=== PATIENT | male | born 1960 | race Caucasian/White ===

== ENCOUNTER 2017-05-05 08:53 | Inpatient (IN) | payer BC ==
[2017-05-05] MEDS ORDERED: Albuterol/Ipratropium 3.0-0.5 MG/3 ML Neb Soln NEB ONE (09:19)
[2017-05-05] MEDS ORDERED: predniSONE 20 MG Tab PO STA (09:19)
--- NOTE | 2017-05-05 09:22 | EDM.PDOC ---
ED HPI GENERAL MEDICAL PROBLEM - General Chief Complaint: Respiratory Problem Stated Complaint: SOB Time Seen by Provider: 05/05/17 08:58 Source of Information: Reports: Patient, Old Records, RN Notes Reviewed History Limitations: Reports: No Limitations - History of Present Illness INITIAL COMMENTS - FREE TEXT/NARRATIVE: The patient states that he has a chronic dry cough, but that it became productive of clear sputum a few days ago. He reports shortness of breath at rest for the past 3-4 days. No recent fever, chest pain, or palpitations. The patient reports similar symptoms about a year ago, when he was seen in the ED ( medical records indicate 02/19/2016). The patient dates that he was seen at a walk-in clinic approximately February of this year. He states his chest x-ray was done, which was negative, nevertheless , he was prescribed an antibiotic. He then followed up with his PCP, Dr. Martines , approximately March. Again x-rays and blood work were done, all of which were negative, according to the patient. He was prescribed an albuterol MDI, antibiotics, and an approximately ten-day course of oral prednisone, which he states he took. The patient states that he has been using his albuterol MDI 1 puff up to TID as needed for dyspnea. The patient has suspected COPD, however, has never undergone formal pulmonary function tests. He is a committed smoker. - Related Data Allergies Allergy/AdvReac Type Severity Reaction Status Date / Time No Known Allergies Allergy Verified 05/05/17 09:02 Home Meds: Home Meds Albuterol [IJD: Ventolin HFA] 2 puff INH Q3H PRN #18 gm 02/19/16 [Rx] Past Medical History Respiratory History: Reports: COPD (suspected, never tested) Musculoskeletal History: Reports: Arthritis, Back Pain, Chronic - Past Surgical History HEENT Surgical History: Reports: Oral Surgery ([place] teeth extraction) GI Surgical History: Reports: Hernia, Inguinal (bilateral) Social & Family History - Family History Family Medical History: Noncontributory - Tobacco Use Smoking Status *Q: Current Every Day Smoker Years of Tobacco use: 40 Packs/Tins Daily: 1 Packs/Tins Daily Comment: Down from 2 ppd - Alcohol Use Alcohol Use History: Yes Total Drinks Per Week Comment: Occasionally drinks to excess Alcohol Use Frequency: Daily - Recreational Drug Use Recreational Drug Use: No - Living Situation & Occupation Living situation: Reports: , Alone 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 Denies: Fever HEENT: Reports: No Symptoms Respiratory: Reports: Shortness of Breath (as per the HPI), Wheezing, Cough (as per the HPI) Cardiovascular: Reports: No Symptoms Endocrine: Reports: No Symptoms GI/Abdominal: Reports: No Symptoms : Reports: No Symptoms Musculoskeletal: Reports: No Symptoms Skin: Reports: No Symptoms Neurological: Reports: No Symptoms Psychiatric: Reports: No Symptoms Hematologic/Lymphatic: Reports: No Symptoms Immunologic: Reports: No Symptoms ED EXAM, GENERAL - Physical Exam Exam: See Below Exam Limited By: No Limitations General Appearance: Alert, WD/WN, Mild Distress (Appears slightly dyspneic, but conversation is not limited) Eye Exam: Bilateral Eye: Normal Inspection Ears: Normal External Exam, Hearing Grossly Normal Nose: Normal Inspection, No Blood Throat/Mouth: Normal Inspection, Normal Lips, Normal Voice, No Airway Compromise Head: Atraumatic, Normocephalic Neck: Normal Inspection, Full Range of Motion Respiratory/Chest: No Respiratory Distress, No Accessory Muscle Use, Decreased Breath Sounds (throughout lung [place]), Wheezing (faint), Prolonged Expiration ( minimal). No: Crackles, Rhonchi Cardiovascular: Normal Peripheral Pulses, Regular Rate, Rhythm, No Gallop, No JVD, No Murmur, No Rub Peripheral Pulses: 4+: Radial (L), Radial (R) GI/Abdominal: Normal Bowel Sounds, Soft, Non-Tender, No Organomegaly, No Distention, No Abnormal Bruit, No Mass (Male) Exam: Deferred Rectal (Males) Exam: Deferred Back Exam: Normal Inspection, Full Range of Motion, NT Extremities: Normal Inspection, Normal Range of Motion, No Pedal Edema, Normal Capillary Refill Neurological: Alert, Oriented, Normal Cognition, No Motor/Sensory Deficits Psychiatric: Normal Affect Skin Exam: Warm, Dry, Intact, Normal Color, No Rash Lymphatic: No Adenopathy EKG INTERPRETATION EKG Date: 05/05/17 Time: 09:03 Rhythm: NSR Rate (Beats/Min): 85 [place]: Normal P-Wave: Present QRS: Normal ST-T: Normal QT: Prolonged (QTc 503 ms) Comparison: NA - No Prior EKG Course - Vital Signs Last Recorded V/S: Last Vital Signs Temp 36.7 C 05/05/17 08:58 Pulse 92 05/05/17 08:58 Resp 21 H 05/05/17 08:58 BP 145/84 H 05/05/17 08:58 Pulse Ox 91 L 05/05/17 11:01 - Orders/Labs/Meds Orders: Active Orders 24 hr Category Date Time Status EKG Documentation Completion [RC] STAT Care 05/05/17 09:05 Active RT Aerosol Therapy [RC] ASDIRECTED Care 05/05/17 09:19 Active RT Aerosol Therapy [RC] ASDIRECTED Care 05/05/17 11:01 Active BLOOD GAS ARTERIAL [BG] Stat Lab 05/05/17 09:15 Results CULTURE BLOOD [BC] Stat Lab 05/05/17 09:25 Received CULTURE BLOOD [BC] Stat Lab 05/05/17 09:40 Received Blood Culture x2 Reflex Set [OM.PC] Stat Oth 05/05/17 09:15 Ordered Labs: Laboratory Tests 05/05/17 05/05/17 05/05/17 Range/Units 09:15 09:25 09:25 WBC 5.57 (4.23-9.07) K/mm3 RBC 5.50 (4.63-6.08) M/mm3 Hgb 18.1 H (13.7-17.5) gm/L Hct 52.0 H (40.1-51.0) % MCV 94.5 H (79.0-92.2) fl MCH 32.9 H (25.7-32.2) pg MCHC 34.8 (32.2-35.5) g/dl RDW Std Deviation 45.5 H (35.1-43.9) fL Plt Count 125 L (163-337) K/mm3 MPV 11.9 (9.4-12.3) fl Neutrophils % (Manual) 58 (40-60) % Band Neutrophils % 0 (0-10) % Lymphocytes % (Manual) 19 L (20-40) % Atypical Lymphs % 10 % Monocytes % (Manual) 4 (2-10) % Eosinophils % (Manual) 9 H (0.8-7.0) % Basophils % (Manual) 0 L (0.2-1.2) Platelet Estimate Adequate Plt Morphology Comment See note Polychromasia 1+ slight Anisocytosis 1+ slight RBC Morph Comment Abnormal PT 11.4 (8.0-13.0) SECONDS INR 1.04 APTT 26 (22-36) SECONDS D-Dimer, Quantitative 0.19 (0.19-0.59) mg/L Puncture Site Rt radial ABG pH 7.39 (7.35-7.45) ABG pCO2 42.2 (35.0-45.0) mmHg ABG pO2 53.0 L (80.0-100.0) mmHg ABG HCO3 25.2 (22.0-26.0) meq/L ABG O2 Saturation 89.0 L (96.0-97.0) % ABG Base Excess 0.6 (-2-2.0) Karan Test Positive O2 Delivery Device Room air Sodium (136-145) mEq/L Potassium (3.5-5.1) mEq/L Chloride (98-107) mEq/L Carbon Dioxide (21-32) mEq/L Anion Gap (5-15) BUN (7-18) mg/dL Creatinine (0.7-1.3) mg/dL Est Cr Clr Drug Dosing Estimated GFR (MDRD) (>60) mL/min BUN/Creatinine Ratio (14-18) Glucose (74-106) mg/dL Lactic Acid (0.4-2.0) mmol/L Calcium (8.5-10.1) mg/dL Total Bilirubin (0.2-1.0) mg/dL AST (15-37) U/L ALT (16-63) U/L Alkaline Phosphatase (46-116) U/L Troponin I (0.00-0.056) ng/mL NT-Pro-B Natriuret Pep (0-125) pg/mL Total Protein (6.4-8.2) g/dl Albumin (3.4-5.0) g/dl Globulin gm/dL Albumin/Globulin Ratio (1-2) 05/05/17 05/05/17 Range/Units 09:25 09:25 WBC (4.23-9.07) K/mm3 RBC (4.63-6.08) M/mm3 Hgb (13.7-17.5) gm/L Hct (40.1-51.0) % MCV (79.0-92.2) fl MCH (25.7-32.2) pg MCHC (32.2-35.5) g/dl RDW Std Deviation (35.1-43.9) fL Plt Count (163-337) K/mm3 MPV (9.4-12.3) fl Neutrophils % (Manual) (40-60) % Band Neutrophils % (0-10) % Lymphocytes % (Manual) (20-40) % Atypical Lymphs % % Monocytes % (Manual) (2-10) % Eosinophils % (Manual) (0.8-7.0) % Basophils % (Manual) (0.2-1.2) Platelet Estimate Plt Morphology Comment Polychromasia Anisocytosis RBC Morph Comment PT (8.0-13.0) SECONDS INR APTT (22-36) SECONDS D-Dimer, Quantitative (0.19-0.59) mg/L Puncture Site ABG pH (7.35-7.45) ABG pCO2 (35.0-45.0) mmHg ABG pO2 (80.0-100.0) mmHg ABG HCO3 (22.0-26.0) meq/L ABG O2 Saturation (96.0-97.0) % ABG Base Excess (-2-2.0) Karan Test O2 Delivery Device Sodium 143 (136-145) mEq/L Potassium 4.0 (3.5-5.1) mEq/L Chloride 107 (98-107) mEq/L Carbon Dioxide 27 (21-32) mEq/L Anion Gap 13.0 (5-15) BUN 14 (7-18) mg/dL Creatinine 0.9 (0.7-1.3) mg/dL Est Cr Clr Drug Dosing TNP Estimated GFR (MDRD) > 60 (>60) mL/min BUN/Creatinine Ratio 15.6 (14-18) Glucose 98 (74-106) mg/dL Lactic Acid 1.0 (0.4-2.0) mmol/L Calcium 9.1 (8.5-10.1) mg/dL Total Bilirubin 1.6 H (0.2-1.0) mg/dL AST 22 (15-37) U/L ALT 26 (16-63) U/L Alkaline Phosphatase 107 (46-116) U/L Troponin I < 0.017 (0.00-0.056) ng/mL NT-Pro-B Natriuret Pep 64 (0-125) pg/mL Total Protein 7.4 (6.4-8.2) g/dl Albumin 4.0 (3.4-5.0) g/dl Globulin 3.4 gm/dL Albumin/Globulin Ratio 1.2 (1-2) Meds: Medications Discontinued Medications Generic Name Dose Route Start Last Admin Trade Name Ryan PRN Reason Stop Dose Admin Albuterol 2.5 mg 05/05/17 11:01 05/05/17 11:05 Proventil Neb Soln NEB 05/05/17 11:02 2.5 mg ONETIME ONE Administration Albuterol/Ipratropium 3 ml 05/05/17 09:19 05/05/17 09:36 Duoneb 3.0-0.5 Mg/3 Ml NEB 05/05/17 09:20 3 ml ONETIME ONE Administration Prednisone 60 mg 05/05/17 09:19 05/05/17 09:30 Prednisone PO 05/05/17 09:20 60 mg ONETIME STA Administration - Re-Assessments/Exams Free Text/Narrative Re-Assessment/Exam: 05/05/17 09:25 Two-view chest radiograph appears to be grossly normal. Cardiac silhouette is within normal limits. No pulmonary vascular congestion. No pleural effusions. No focal infiltrate. No pneumothorax. Hyperinflation and bilateral diaphragmatic flattening, consistent with COPD, noted. Formal read per the Radiologist pending. 05/05/17 11:02 The patient was reexamined. He states that he feels much better following a DuoNeb and oral prednisone, however, his oxygen saturation is consistently 86-87 % on room air. On auscultation, there is no significant improvement, with overall good air movement, but significantly decreased breath sounds and slight expiratory wheezing. I have ordered an additional albuterol neb treatment. He will be started on supplemental oxygen to titrate his SpO2 to approximately 90%. 05/05/17 11:53 Test results discussed with the patient. Today's workup is grossly unremarkable. While the patient does not have a formal diagnosis of COPD, he likely is suffering from a COPD exacerbation. His symptoms have improved somewhat with a DuoNeb, albuterol neb, and oral prednisone, however, he still requires supplemental oxygen to maintain a SpO2 of 88%. I'm recommending that he be placed into observation, and if his oxygen saturation does not improve, that home oxygen be arranged. The patient is agreeable. Incidentally noted is an elevated total bilirubin of 1.6 without elevation of his other LFTs. The patient may have Gilbert syndrome. 05/05/17 12:[address] Sauceda at 11:57. He agrees to place the patient into observation. Departure - Departure Time of Disposition: 12:02 Disposition: Refer to Observation Condition: Fair Clinical Impression: COPD exacerbation, Hypoxemia - Discharge Information Referrals: Thompson Martines Jr, MD [Primary Care Provider] - - My Orders Last 24 Hours: My Active Orders 05/05/17 09:05 EKG Documentation Completion [RC] STAT 05/05/17 09:15 BLOOD GAS ARTERIAL [BG] Stat Blood Culture x2 Reflex Set [OM.PC] Stat 05/05/17 09:19 RT Aerosol Therapy [RC] ASDIRECTED 05/05/17 09:25 CULTURE BLOOD [BC] Stat 05/05/17 09:40 CULTURE BLOOD [BC] Stat 05/05/17 11:01 RT Aerosol Therapy [RC] ASDIRECTED - Assessment/Plan Last 24 Hours: My Active Orders 05/05/17 09:05 EKG Documentation Completion [RC] STAT 05/05/17 09:15 BLOOD GAS ARTERIAL [BG] Stat Blood Culture x2 Reflex Set [OM.PC] Stat 05/05/17 09:19 RT Aerosol Therapy [RC] ASDIRECTED 05/05/17 09:25 CULTURE BLOOD [BC] Stat 05/05/17 09:40 CULTURE BLOOD [BC] Stat 05/05/17 11:01 RT Aerosol Therapy [RC] ASDIRECTED
[2017-05-05] MEDS ORDERED: Albuterol 0.083% 2.5 MG/3 ML Neb Soln NEB ONE (11:01)
--- NOTE | 2017-05-05 11:40 | CR ---
Chest: Two views of the chest were obtained. Comparison: Previous chest x-ray of 02/21/16. Heart size and mediastinum are within normal limits. Lungs are hyperinflated compatible with emphysematous change. Lungs are clear without acute infiltrates. Minimal scoliosis is noted. Slight degenerative change is noted within the spine. Impression: 1. Emphysematous change. Nothing acute is appreciated. No significant change is seen from prior chest x-ray. Diagnostic code #2
[2017-05-05] MEDS ORDERED: Magnesium Hydroxide 400 MG/5 ML Susp 30 ML Cup PO PRN (13:28)
[2017-05-05] MEDS ORDERED: Temazepam 7.5 MG Cap PO PRN (13:28)
[2017-05-05] MEDS ORDERED: Acetaminophen 325 MG Tab PO PRN (13:28)
[2017-05-05] MEDS ORDERED: Ondansetron 4 MG Tab.DIS PO PRN (13:28)
[2017-05-05] MEDS ORDERED: Docusate Sodium 100 MG Cap PO PRN (13:28)
[2017-05-05] MEDS ORDERED: Albuterol/Ipratropium 3.0-0.5 MG/3 ML Neb Soln NEB PRN (13:28)
[2017-05-05] MEDS ORDERED: Ondansetron 4 MG/2 ML SDV IV PRN (13:28)
[2017-05-05] MEDS ORDERED: Morphine 2 MG/ML Syringe IVPUSH PRN (14:20)
--- NOTE | 2017-05-05 14:41 | PCM.HP ---
<Bill Andersen - Last Filed: 05/05/17 15:55> H&P History of Present Illness - General Date of Service: 05/05/17 Admit Problem/Dx: Admission Diagnosis/Problem Admission Diagnosis/Problem Reactive Airway Disease with Wheezing Source of Information: Patient, Provider History Limitations: Reports: No Limitations - History of Present Illness Initial Comments - Free Text/Narative: Rob Garcia is a 56 y.o. male pt. who came to the ED reporting SOB over 3-4 days and a chronic dry cough that became productive of clear sputum a few days ago. He has had no fever, chest pain, or other URI symptoms. He was seen in the ED on 02/18/17 for similar symptoms which resolved after treatment in the ED and was subsequently released home. He reports being seen in the [place] walk-in clinic in February and a chest x-ray was taken but was unremarkable. He was prescribed an antibiotic and followed up with Dr. Martines, his PCP in March. The patient reports a CXR and blood work was done and all were negative. At that time he was prescribed an albuterol MDI (1 puff TID), antibiotic, and 10-day course of oral prednisone. He finished this treatment. Upon arrival to ED today he is mildly dyspneic but is able to communicate freely without much difficulty. He has no complaints of chest pain or any other symptoms. EKG shows NSR with prolonged QT. Labs drawn. WBC 5.57, Hgb 18.1, Hct 52.0, Plt 125, PT 11.4, INR 1.04, D-Dimer 0.19, ABG pH 7.39, ABG pCO2 42.2, ABG pO2 53, ABG HCO3 25.2, ABG O2 saturation 89, ABG base excess 0.6. Anion gap 13.0 , creatinine 0.9, lactic acid 1.0, Bilirubin 1.6, NT-Pro BNP 7.4. Patient was given albuterol and duo-neb via nebulizer as well as 60 mg PO of prednisone. CXR is grossly normal. Per Dr. Tejeda (radiologist) "Emphysematous change. Nothing acute is appreciated. No significant change seen from prior chest x-ray. " He responds well to treatment in ED however his oxygen saturation remains 86-87 % on room air. Placed on O2 via NC at 2L and saturation increases to low 90's. He is subsequently admitted to hospitalist service under Dr. Sauceda for low oxygen saturation. This patient has never had a formal COPD diagnoses and reports never having been given a PFT. His CXR is suggestive of of this, as noted above. The patient is a heavy smoker, having used tobacco for 40+ years. He reports using 1 pack per day, down from 2 packs per day. He denies any other significant medical history and denies any medication use, aside from an occasional NSAID. Onset of Symptoms: Reports: Gradual Duration of Symptoms: Reports: Getting Worse Quality: Reports: Same as Previous Episode Severity: Moderate Improves with: Reports: Medication, Rest Worsens with: Reports: Other (activity ) Associated Symptoms: Reports: cough w sputum (clear) - Related Data Allergies/Adverse Reactions: Allergies Allergy/AdvReac Type Severity Reaction Status Date / Time No Known Allergies Allergy Verified 05/05/17 09:02 Home Medications: Home Meds Albuterol [IJD: Ventolin HFA] 2 puff INH Q3H PRN #18 gm 02/19/16 [Rx] Past Medical History - Past Health History Medical/Surgical History: Denies Medical/Surgical History Cardiovascular History: Reports: SOB on Exertion Respiratory History: Reports: COPD, SOB Musculoskeletal History: Reports: Arthritis, Back Pain, Chronic - Past Surgical History HEENT Surgical History: Reports: Oral Surgery, Other (See Below) Other HEENT Surgeries/Procedures: 2007 Cardiovascular Surgical History: Reports: None Respiratory Surgical History: Reports: None GI Surgical History: Reports: Hernia, Inguinal Social & Family History - Family History Family Medical History: Noncontributory HEENT: Reports: None Cardiac: Reports: Heart Failure, Heart Murmur, Pacemaker, Other (See Below) Other Cardiac Family History: mother/father Neurological: Reports: Parkinson's, Other (See Below) Other Neurological Family History: father Oncologic: Reports: Prostate, Other (See Below) Other Oncologic Family History: father - Tobacco Use Smoking Status *Q: Current Every Day Smoker Years of Tobacco use: 35 Packs/Tins Daily: 1 Used Tobacco, but Quit: No Second Hand Smoke Exposure: Yes - Caffeine Use Caffeine Use: Reports: Coffee, Energy Drinks, Tea - Alcohol Use Days Per Week of Alcohol Use: 7 Number of Drinks Per Day: 2 Total Drinks Per Week: 14 Date of Last Drink: 05/04/17 Time of Last Drink: 20:00 - Recreational Drug Use Recreational Drug Use: No - Living Situation & Occupation Living situation: Reports: , Alone 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 General: Denies: Fever, Chills, Malaise, Weakness, Fatigue, Night Sweats HEENT: Denies: Eye Pain, Headaches, Hearing Changes, Sinus Congestion, Sore Throat, Visual Changes Pulmonary: Reports: Shortness of Breath (Mild at this point ), Wheezing, Cough, Sputum (clear ). Denies: Pleuritic Chest Pain Cardiovascular: Reports: Dyspnea on Exertion. Denies: Chest Pain, Palpitations , Edema, Lightheadedness, Claudication Gastrointestinal: Denies: Abdominal Pain, Constipation, Diarrhea, Decreased Appetite, Distension, Nausea, Vomiting Genitourinary: Denies: Dysuria, Pain, Urgency Musculoskeletal: Denies: Neck Pain, Shoulder Pain, Back Pain, Leg Pain, Muscle Pain, Muscle Stiffness Skin: Denies: Cyanosis, Jaundice, Mottled, Diaphoresis, Bruising, Pruritis, Rash Psychiatric: Reports: No Symptoms Neurological: Denies: Confusion, Dizziness, Headache, Numbness, Tingling, Difficulty Walking, Weakness, Change in Speech, Gait Disturbance Hematologic/Lymphatic: Reports: No Symptoms Immunologic: Reports: No Symptoms Exam - Exam Exam: See Below - Vital Signs Vital Signs: Last Vital Signs Temp 97.5 F 05/05/17 13:29 Pulse 72 05/05/17 13:29 Resp 20 05/05/17 13:20 BP 158/91 H 05/05/17 13:29 Pulse Ox 91 L 05/05/17 13:29 Weight: 81.788 kg - Exam Quality Assessment: Supplemental Oxygen, DVT Prophylaxis General: Alert, Oriented, Cooperative HEENT: Conjunctiva Clear, EACs Clear, EOMI, Hearing Intact, Mucosa Moist & [place] , Nares Patent, Normal Nasal Septum, Posterior Pharynx Clear, Pupils Equal, Pupils Reactive, TMs Clear Neck: Supple, Trachea Midline, Full Range of Motion. No: JVD Lungs: Decreased Breath Sounds, Wheezing (end-expiratory ), Other (minimal prolongued expiration, no accessory muscle use, ). No: Crackles, Rales, Rub Cardiovascular: Regular Rate, Regular Rhythm GI/Abdominal Exam: Normal Bowel Sounds, Soft, Non-Tender, No Distention, No Mass (Male) Exam: Deferred Rectal (Males) Exam: Deferred Back Exam: Normal Inspection, Full Range of Motion. No: CVA Tenderness (L), CVA Tenderness (R), Muscle Spasm Extremities: Normal Inspection, Normal Range of Motion, Non-Tender, No Pedal Edema, Normal Capillary Refill Peripheral Pulses: 2+: Radial (L), Radial (R), 3+: Posterior Tibial (L), Posterior Tibial (R), Dorsalis Pedis (L), Dorsalis Pedis (R) Skin: Warm, Dry, Intact Neuro Extensive - Mental Status: Alert, Oriented x3, Normal Mood/Affect, Normal Cognition, Memory Intact Psychiatric: Alert, Normal Affect, Normal Mood - Patient Data Result Diagrams: 05/05/17 09:25 05/05/17 09:25 *Q Meaningful Use (ADM) - VTE *Q VTE Criteria *Q: - Stroke *Q Stroke Criteria *Q: - AMI *Q AMI Criteria *Q: - Problem List (1) Reactive airway disease with wheezing SNOMED Code(s): 721886634591 ICD Code: J45.909 - UNSPECIFIED ASTHMA, UNCOMPLICATED Status: Acute Priority: High Current Visit: Yes QualifierTitle: Asthma severity: unspecified severity Asthma complication type: with acute exacerbation Qualified Code(s): J45.901 - Unspecified asthma with (acute) exacerbation Problem List Initiated/Reviewed/Updated: Yes Orders Last 24hrs: Active Orders 24 hr Category Date Time Status Ambulate [RC] PER UNIT ROUTINE Care 05/05/17 13:33 Active Antiembolic Devices [RC] PER UNIT ROUTINE Care 05/05/17 13:37 Active Intake and Output [RC] QSHIFT Care 05/05/17 13:31 Active May Shower [RC] ASDIRECTED Care 05/05/17 13:28 Active Oxygen Therapy [RC] PRN Care 05/05/17 13:29 Active Pulse Oximetry [RC] CONTINUOUS Care 05/05/17 13:30 Active RT Aerosol Therapy [RC] ASDIRECTED Care 05/05/17 13:38 Active VTE/DVT Education [RC] PER UNIT ROUTINE Care 05/05/17 13:29 Active VTE/DVT Education [RC] PER UNIT ROUTINE Care 05/05/17 14:09 Active Vaccines to be Administered [RC] PER UNIT ROUTINE Care 05/05/17 13:41 Active Vital Signs [RC] Q4H Care 05/05/17 13:29 Active Vital Signs [RC] Q4H Care 05/05/17 14:09 Active Consult to Case Management [CONS] Routine Cons 05/05/17 13:42 Active Consult to Certified Midwife [CONS] Routine Cons 05/05/17 13:42 Active OT Evaluation and Treatment [CONS] Routine Cons 05/05/17 13:42 Active PT Evaluation and Treatment [CONS] Routine Cons 05/05/17 13:42 Active Respiratory Care Assess and Treatment [CONS] Routine Cons 05/05/17 13:42 Active Regular Diet [DIET] Diet 05/05/17 Dinner Active BASIC METABOLIC PANEL,BMP [CHEM] DAILY Lab 05/06/17 05:00 Ordered BASIC METABOLIC PANEL,BMP [CHEM] DAILY Lab 05/07/17 05:00 Ordered BASIC METABOLIC PANEL,BMP [CHEM] DAILY Lab 05/08/17 05:00 Ordered BASIC METABOLIC PANEL,BMP [CHEM] DAILY Lab 05/09/17 05:00 Ordered CBC WITH AUTO DIFF [HEME] DAILY Lab 05/06/17 05:00 Ordered CBC WITH AUTO DIFF [HEME] DAILY Lab 05/07/17 05:00 Ordered CBC WITH AUTO DIFF [HEME] DAILY Lab 05/08/17 05:00 Ordered CBC WITH AUTO DIFF [HEME] DAILY Lab 05/09/17 05:00 Ordered MAGNESIUM [CHEM] Stat Lab 05/05/17 09:25 Received POTASSIUM,K [CHEM] Routine Lab 05/05/17 09:25 Received Acetaminophen [Tylenol] Med 05/05/17 13:28 Active 650 mg PO Q4H PRN Albuterol/Ipratropium [DuoNeb 3.0-0.5 MG/3 ML] Med 05/05/17 13:28 Active 3 ml NEB Q4H PRN Azithromycin [Zithromax] Med 05/05/17 14:00 Active 500 mg PO DAILY Docusate Sodium [Colace] Med 05/05/17 13:28 Active 100 mg PO BID PRN Magnesium Hydroxide [Milk of Magnesia] Med 05/05/17 13:28 Active 30 ml PO Q12H PRN Magnesium Rep Pharmacy to Dose [Pharmacy to Dose - Med 05/05/17 14:00 Active Magnesium Replacement] 1 dose .XX ASDIRECTED Morphine Med 05/05/17 14:20 Active 0.5 mg IVPUSH Q2H PRN Nicotine [Habitrol] Med 05/05/17 14:00 Active 21 mg TRDERM DAILY Ondansetron [Zofran ODT] Med 05/05/17 13:28 Active 4 mg PO Q4H PRN Ondansetron [Zofran] Med 05/05/17 13:28 Active 4 mg IV Q4H PRN Potassium Rep Pharmacy to Dose [Pharmacy to Dose - Med 05/05/17 14:15 Active Potassium Replacement] 1 dose .XX ASDIRECTED Remove Patch Med 05/06/17 09:00 Active 0 ea TRDERM DAILY Temazepam [Restoril] Med 05/05/17 13:28 Active 7.5 mg PO BEDTIME PRN GM Immunization Reflex [OM.PC] Click To Edit Oth 05/05/17 13:28 Ordered Sequential Compression Device [OM.PC] Per Unit Routine Oth 05/05/17 13:34 Ordered Resuscitation Status Routine Resus Stat 05/05/17 13:28 Ordered Medication Orders Acetaminophen (Tylenol) 650 mg PO Q4H PRN PRN Reason: Pain (Mild 1-3)/fever Albuterol/Ipratropium (Duoneb 3.0-0.5 Mg/3 Ml) 3 ml NEB Q4H PRN PRN Reason: Shortness Of Breath/wheezing Azithromycin (Zithromax) 500 mg PO DAILY [facility] Stop: 05/07/17 09:01 Docusate Sodium (Colace) 100 mg PO BID PRN PRN Reason: Constipation Magnesium Hydroxide (Milk Of Magnesia) 30 ml PO Q12H PRN PRN Reason: Constipation Magnesium Sulfate (Pharmacy To Dose - Magnesium Replacement) 1 dose .XX ASDIRECTED [facility] Miscellaneous Information (Remove Patch) 0 ea TRDERM DAILY [facility] Morphine Sulfate (Morphine) 0.5 mg IVPUSH Q2H PRN PRN Reason: Dyspnea Nicotine (Habitrol) 21 mg TRDERM DAILY [facility] Ondansetron HCl (Zofran) 4 mg IV Q4H PRN PRN Reason: Nausea/Vomiting Ondansetron HCl (Zofran Odt) 4 mg PO Q4H PRN PRN Reason: nausea, able to take PO Potassium Chloride (Pharmacy To Dose - Potassium Replacement) 1 dose .XX ASDIRECTED [facility] Temazepam (Restoril) 7.5 mg PO BEDTIME PRN PRN Reason: Sleep Assessment/Plan Comment:: I/P Acute: Reactive airway disease: - CXR suggestive of emphysematous change - Prior ED visit with similar symptoms (02/19/16) - 40+ year 1-2 ppd smoker - Normal WBC - No fever - Unremarkable EKG - D-dimer/troponin negative - Improvement with Duo-neb/albuterol, will continue with PRN therapy - RT consult - Continue O2 via NC with goal of weaning off O2. - Strongly advised to have outpatient PFT. - Discussed case with Dr. Sauceda, hospitalist. He advised to continue steroid taper with first dose given in ED at 60mg. Continue TID while decreasing to 40mg after 3 doses, 20mg TID, and so on. - Azithromycin abx started - Will monitor magnesium and potassium. Elevated bilirubin - 1.6 - LFTs not elevated - Will have follow-up with PCP for possible monitoring/treatment if necessary. Chronic: Tobacco use disorder - Nicotine patch as ordered - Will provide tobacco cessation materials Plan: OT/PT SW/CM for discharge planning GI/DVT prophylaxis Routine AM labs as ordered Other orders as indicated above <Rajani Sauceda T - Last Filed: 05/05/17 16:45> H&P History of Present Illness - General Admit Problem/Dx: Admission Diagnosis/Problem Admission Diagnosis/Problem COPD, Moderate chronic obstructive pulmonary disease Exam - Vital Signs Vital Signs: Last Vital Signs Temp 36.4 C 05/05/17 13:29 Pulse 72 05/05/17 13:29 Resp 20 05/05/17 13:20 BP 158/91 H 05/05/17 13:29 Pulse Ox 91 L 05/05/17 13:30 - Patient Data Result Diagrams: 05/05/17 09:25 05/05/17 09:25 *Q Meaningful Use (ADM) - VTE *Q VTE Criteria *Q: - Stroke *Q Stroke Criteria *Q: - AMI *Q AMI Criteria *Q: Problem List Initiated/Reviewed/Updated: Yes Orders Last 24hrs: Active Orders 24 hr Category Date Time Status Ambulate [RC] Q8HR Care 05/05/17 13:33 Active Antiembolic Devices [RC] Q12H Care 05/05/17 13:37 Active Intake and Output [RC] QSHIFT Care 05/05/17 13:31 Active May Shower [RC] ASDIRECTED Care 05/05/17 13:28 Active Oxygen Therapy [RC] PRN Care 05/05/17 13:29 Active Pulse Oximetry [RC] CONTINUOUS Care 05/05/17 13:30 Active RT Aerosol Therapy [RC] ASDIRECTED Care 05/05/17 13:38 Active VTE/DVT Education [RC] 1000 Care 05/05/17 14:09 Active VTE/DVT Education [RC] Q12H Care 05/05/17 13:29 Active Vaccines to be Administered [RC] PER UNIT ROUTINE Care 05/05/17 13:41 Active Vital Signs [RC] Q4H Care 05/05/17 13:29 Active Consult to Case Management [CONS] Routine Cons 05/05/17 13:42 Active Consult to Certified Midwife [CONS] Routine Cons 05/05/17 13:42 Active OT Evaluation and Treatment [CONS] Routine Cons 05/05/17 13:42 Active PT Evaluation and Treatment [CONS] Routine Cons 05/05/17 13:42 Active Respiratory Care Assess and Treatment [CONS] Routine Cons 05/05/17 13:42 Active Regular Diet [DIET] Diet 05/05/17 Lunch Active BASIC METABOLIC PANEL,BMP [CHEM] DAILY Lab 05/06/17 05:00 Ordered BASIC METABOLIC PANEL,BMP [CHEM] DAILY Lab 05/07/17 05:00 Ordered BASIC METABOLIC PANEL,BMP [CHEM] DAILY Lab 05/08/17 05:00 Ordered BASIC METABOLIC PANEL,BMP [CHEM] DAILY Lab 05/09/17 05:00 Ordered CBC WITH AUTO DIFF [HEME] DAILY Lab 05/06/17 05:00 Ordered CBC WITH AUTO DIFF [HEME] DAILY Lab 05/07/17 05:00 Ordered CBC WITH AUTO DIFF [HEME] DAILY Lab 05/08/17 05:00 Ordered CBC WITH AUTO DIFF [HEME] DAILY Lab 05/09/17 05:00 Ordered Acetaminophen [Tylenol] Med 05/05/17 13:28 Active 650 mg PO Q4H PRN Albuterol/Ipratropium [DuoNeb 3.0-0.5 MG/3 ML] Med 05/05/17 13:28 Active 3 ml NEB Q4H PRN Azithromycin [Zithromax] Med 05/05/17 14:00 Active 500 mg PO DAILY Docusate Sodium [Colace] Med 05/05/17 13:28 Active 100 mg PO BID PRN Magnesium Hydroxide [Milk of Magnesia] Med 05/05/17 13:28 Active 30 ml PO Q12H PRN Magnesium Rep Pharmacy to Dose [Pharmacy to Dose - Med 05/05/17 14:00 Active Magnesium Replacement] 1 dose .XX ASDIRECTED Morphine Med 05/05/17 14:20 Active 0.5 mg IVPUSH Q2H PRN Nicotine [Habitrol] Med 05/05/17 14:00 Active 21 mg TRDERM DAILY Ondansetron [Zofran ODT] Med 05/05/17 13:28 Active 4 mg PO Q4H PRN Ondansetron [Zofran] Med 05/05/17 13:28 Active 4 mg IV Q4H PRN Potassium Rep Pharmacy to Dose [Pharmacy to Dose - Med 05/05/17 14:15 Active Potassium Replacement] 1 dose .XX ASDIRECTED Remove Patch Med 05/06/17 09:00 Active 0 ea TRDERM DAILY Temazepam [Restoril] Med 05/05/17 13:28 Active 7.5 mg PO BEDTIME PRN predniSONE Med 05/05/17 17:30 Active 60 mg PO TID GM Immunization Reflex [OM.PC] Click To Edit Oth 05/05/17 13:28 Ordered Sequential Compression Device [OM.PC] Per Unit Routine Oth 05/05/17 13:34 Ordered Resuscitation Status Routine Resus Stat 05/05/17 13:28 Ordered Medication Orders Acetaminophen (Tylenol) 650 mg PO Q4H PRN PRN Reason: Pain (Mild 1-3)/fever Albuterol/Ipratropium (Duoneb 3.0-0.5 Mg/3 Ml) 3 ml NEB Q4H PRN PRN Reason: Shortness Of Breath/wheezing Azithromycin (Zithromax) 500 mg PO DAILY [facility] Stop: 05/07/17 09:01 Last Admin: 05/05/17 15:14 Dose: 500 mg Docusate Sodium (Colace) 100 mg PO BID PRN PRN Reason: Constipation Magnesium Hydroxide (Milk Of Magnesia) 30 ml PO Q12H PRN PRN Reason: Constipation Magnesium Sulfate (Pharmacy To Dose - Magnesium Replacement) 1 dose .XX ASDIRECTED [facility] Miscellaneous Information (Remove Patch) 0 ea TRDERM DAILY [facility] Morphine Sulfate (Morphine) 0.5 mg IVPUSH Q2H PRN PRN Reason: Dyspnea Nicotine (Habitrol) 21 mg TRDERM DAILY [facility] Last Admin: 05/05/17 15:15 Dose: 21 mg Ondansetron HCl (Zofran) 4 mg IV Q4H PRN PRN Reason: Nausea/Vomiting Ondansetron HCl (Zofran Odt) 4 mg PO Q4H PRN PRN Reason: nausea, able to take PO Potassium Chloride (Pharmacy To Dose - Potassium Replacement) 1 dose .XX ASDIRECTED [facility] Prednisone (Prednisone) 60 mg PO TID [facility] Stop: 05/06/17 09:01 Temazepam (Restoril) 7.5 mg PO BEDTIME PRN PRN Reason: Sleep Assessment/Plan Comment:: Patient seen and examined at bedside. He feels much better. Currently, denies any acute issues. Please see treatment above. May possible discharged in AM. He would need a PFT for formal diagnosis of COPD.
[2017-05-05] MEDS: Azithromycin 250 MG Tab PO SCH (15:14)
[2017-05-05] MEDS: Nicotine 21 MG/24 Hr Patch TRDERM SCH (15:15)
[2017-05-05] MEDS ORDERED: Metoprolol Tartrate 5 MG/5 ML SDV IVPUSH PRN (16:48)
[2017-05-05] MEDS ORDERED: hydrALAZINE 20 MG/ML SDV IVPUSH PRN (16:48)
[2017-05-05] MEDS ORDERED: LORazepam 2 MG/ML MDV IVPUSH PRN (16:50)
[2017-05-05] MEDS ORDERED: Temazepam 15 MG Cap PO PRN (16:51)
[2017-05-05] MEDS ORDERED: methylPREDNISolone Sodium Succinate 125 MG/2 ML SDV IVPUSH ONE ×2 (17:00→23:59)
[2017-05-05] MEDS ORDERED: predniSONE 20 MG Tab PO SCH (17:30)
[2017-05-06] MEDS: Albuterol/Ipratropium 3.0-0.5 MG/3 ML Neb Soln NEB SCH ×4 (06:47→21:11)
[2017-05-06] MEDS ORDERED: predniSONE 20 MG Tab PO ONE (08:00)
[2017-05-06] MEDS: Azithromycin 250 MG Tab PO SCH (08:23)
[2017-05-06] MEDS: Nicotine 21 MG/24 Hr Patch TRDERM SCH (08:23)
[2017-05-06] MEDS: Tiotropium Inhaler 18 MCG Inhalation Powder Cap Kit of 5 INH SCH ×2 (09:13→19:26)
--- NOTE | 2017-05-06 09:13 | PCM.PN ---
<Bill Andersen - Last Filed: 05/06/17 11:34> - General Info Date of Service: 05/06/17 Admission Dx/Problem (Free Text): Admission Diagnosis/Problem Admission Diagnosis/Problem COPD, Moderate chronic obstructive pulmonary disease Functional Status: Reports: Tolerating Diet, Ambulating, Urinating, Incentive Spirometry (ordered ). Denies: New Symptoms - Review of Systems General: Denies: Fever, Weakness, Fatigue, Malaise, Chills, Night Sweats HEENT: Denies: Eye Pain, Headaches, Sore Throat, Visual Changes Pulmonary: Reports: Cough (Dry). Denies: Shortness of Breath, Pleuritic Chest Pain, Sputum, Wheezing Cardiovascular: Denies: Chest Pain, Palpitations, Dyspnea on Exertion, Edema, Lightheadedness Gastrointestinal: Denies: Abdominal Pain, Constipation, Decreased Appetite, Diarrhea, Difficulty Swallowing, Flatus, Nausea, Vomiting Genitourinary: Denies: Dysuria, Frequency, Burning Musculoskeletal: Denies: Neck Pain, Shoulder Pain, Arm Pain, Hand Pain, Back Pain, Leg Pain Skin: Denies: Cyanosis, Jaundice, Mottled, Bruising Neurological: Denies: Confusion, Dizziness, Headache, Numbness Psychiatric: Denies: Confusion Systems Review Comment:: Patient reports he is feeling well and not dyspneic laying in bed. He reports no pain. - Patient Data Vitals - Most Recent: Last Vital Signs Temp 98.1 F 05/06/17 04:27 Pulse 90 05/06/17 04:27 Resp 20 05/06/17 04:27 BP 141/80 H 05/06/17 04:27 Pulse Ox 90 L 05/06/17 04:27 Weight - Most Recent: 80.513 kg I&O - Last 24 Hours: Intake & Output 05/05/17 05/06/17 05/06/17 22:59 06:59 14:59 Intake Total 1020 950 Output Total 1000 Balance 1020 -50 Lab Results Last 24 Hours: Laboratory Results - last 24 hr 05/06/17 05/06/17 05/06/17 Range/Units 05:40 05:40 05:40 WBC 9.47 H (4.23-9.07) K/mm3 RBC 5.04 (4.63-6.08) M/mm3 Hgb 16.8 (13.7-17.5) gm/L Hct 47.4 (40.1-51.0) % MCV 94.0 H (79.0-92.2) fl MCH 33.3 H (25.7-32.2) pg MCHC 35.4 (32.2-35.5) g/dl RDW Std Deviation 43.6 (35.1-43.9) fL Plt Count 122 L (163-337) K/mm3 MPV 12.1 (9.4-12.3) fl Neut % (Auto) 92.3 H (34.0-67.9) % Lymph % (Auto) 5.1 L (21.8-53.1) % Rhea % (Auto) 2.3 L (5.3-12.2) % Eos % (Auto) 0 L (0.8-7.0) Baso % (Auto) 0.1 (0.1-1.2) % Neut # (Auto) 8.74 H (1.78-5.38) K/mm3 Lymph # (Auto) 0.48 L (1.32-3.57) K/mm3 Rhea # (Auto) 0.22 L (0.30-0.82) K/mm3 Eos # (Auto) 0.00 L (0.04-0.54) K/mm3 Baso # (Auto) 0.01 (0.01-0.08) K/mm3 Manual Slide Review Abnormal smear Sodium 140 (136-145) mEq/L Potassium 3.7 (3.5-5.1) mEq/L Chloride 106 (98-107) mEq/L Carbon Dioxide 23 (21-32) mEq/L Anion Gap 14.7 (5-15) BUN 13 (7-18) mg/dL Creatinine 0.8 (0.7-1.3) mg/dL Est Cr Clr Drug Dosing 113.17 mL/min Estimated GFR (MDRD) > 60 (>60) mL/min BUN/Creatinine Ratio 16.3 (14-18) Glucose 154 H (74-106) mg/dL Calcium 8.5 (8.5-10.1) mg/dL Mycoplasma pneumon IgM Negative (NEGATIVE) Med Orders - Current: Current Medications Acetaminophen (Tylenol) 650 mg PO Q4H PRN PRN Reason: Pain (Mild 1-3)/fever Albuterol/Ipratropium (Duoneb 3.0-0.5 Mg/3 Ml) 3 ml NEB Q6HRRT [facility] Last Admin: 05/06/17 06:47 Dose: Not Given Azithromycin (Zithromax) 500 mg PO DAILY [facility] Stop: 05/07/17 09:01 Last Admin: 05/06/17 08:23 Dose: 500 mg Docusate Sodium (Colace) 100 mg PO BID PRN PRN Reason: Constipation Guaifenesin (Mucinex) 1,200 mg PO BID [facility] Hydralazine HCl (Apresoline) 20 mg IVPUSH Q4H PRN PRN Reason: Hypertension Lorazepam (Ativan) 1 mg IVPUSH Q6H PRN; Protocol PRN Reason: Anxiety Magnesium Hydroxide (Milk Of Magnesia) 30 ml PO Q12H PRN PRN Reason: Constipation Magnesium Sulfate (Pharmacy To Dose - Magnesium Replacement) 1 dose .XX ASDIRECTED [facility] Metoprolol Tartrate (Lopressor) 5 mg IVPUSH Q4H PRN PRN Reason: Tachycardia Miscellaneous Information (Remove Patch) 0 ea TRDERM DAILY [facility] Last Admin: 05/06/17 08:24 Dose: 1 ea Morphine Sulfate (Morphine) 0.5 mg IVPUSH Q2H PRN PRN Reason: Dyspnea Nicotine (Habitrol) 21 mg TRDERM DAILY [facility] Last Admin: 05/06/17 08:23 Dose: 21 mg Ondansetron HCl (Zofran) 4 mg IV Q4H PRN PRN Reason: Nausea/Vomiting Ondansetron HCl (Zofran Odt) 4 mg PO Q4H PRN PRN Reason: nausea, able to take PO Potassium Chloride (Pharmacy To Dose - Potassium Replacement) 1 dose .XX ASDIRECTED [facility] Prednisone (Prednisone) 40 mg PO TID [facility] Fluticasone/Salmeterol (Advair Diskus 250-50) 1 puff INH BID [facility] Temazepam (Restoril) 15 mg PO BEDTIME PRN PRN Reason: Sleep Tiotropium [place] (Spiriva Handihaler) 18 mcg INH DAILY [facility] Discontinued Medications Albuterol (Proventil Neb Soln) 2.5 mg NEB ONETIME ONE Stop: 05/05/17 11:02 Last Admin: 05/05/17 11:05 Dose: 2.5 mg Albuterol/Ipratropium (Duoneb 3.0-0.5 Mg/3 Ml) 3 ml NEB ONETIME ONE Stop: 05/05/17 09:20 Last Admin: 05/05/17 09:36 Dose: 3 ml Albuterol/Ipratropium (Duoneb 3.0-0.5 Mg/3 Ml) 3 ml NEB Q4H PRN PRN Reason: Shortness Of Breath/wheezing Last Admin: 05/06/17 02:20 Dose: 3 ml Methylprednisolone Sodium Succinate (Solu-Medrol) 60 mg IVPUSH ONETIME ONE Stop: 05/05/17 17:01 Last Admin: 05/05/17 17:46 Dose: 60 mg Methylprednisolone Sodium Succinate (Solu-Medrol) 60 mg IVPUSH ONETIME ONE Stop: 05/06/17 00:00 Last Admin: 05/06/17 00:08 Dose: 60 mg Prednisone (Prednisone) 60 mg PO ONETIME STA Stop: 05/05/17 09:20 Last Admin: 05/05/17 09:30 Dose: 60 mg Prednisone (Prednisone) 60 mg PO TID MARYURI Stop: 05/06/17 09:01 Prednisone (Prednisone) 60 mg PO ONETIME ONE Stop: 05/06/17 08:01 Last Admin: 05/06/17 08:23 Dose: 60 mg Temazepam (Restoril) 7.5 mg PO BEDTIME PRN PRN Reason: Sleep - Exam Quality Assessment: Supplemental Oxygen (4L), DVT Prophylaxis General: Alert, Oriented, Cooperative, No Acute Distress HEENT: Pupils Equal, Pupils Reactive, Mucous Membr. Moist/[place] Neck: Supple, Trachea Midline, No JVD Lungs: Normal Respiratory Effort, Decreased Breath Sounds, Wheezing (Left sided ) Cardiovascular: Regular Rate, Regular Rhythm, No Murmurs GI/Abdominal Exam: Normal Bowel Sounds, Soft, Non-Tender, No Distention (Male) Exam: Deferred Back Exam: Normal Inspection Extremities: Normal Inspection, Normal Range of Motion, Non-Tender, No Pedal Edema, Normal Capillary Refill Peripheral Pulses: 2+: Radial (L), Radial (R), Posterior Tibial (L), Posterior Tibial (R), Dorsalis Pedis (L), Dorsalis Pedis (R) Skin: Warm, Dry, Intact Neurological: No New Focal Deficit, Normal Speech Psy/Mental Status: Alert, Normal Affect, Normal Mood Physical Findings Comments:: Patient is resting in bed. He does not appear to be in any distress. - Problem List & Annotations (1) Reactive airway disease with wheezing SNOMED Code(s): 657376326116 Code(s): J45.909 - UNSPECIFIED ASTHMA, UNCOMPLICATED Status: Acute Priority: High Current Visit: Yes QualifierTitle: Asthma severity: unspecified severity Asthma complication type: with acute exacerbation Qualified Code(s): J45.901 - Unspecified asthma with (acute) exacerbation (2) Cough SNOMED Code(s): 15036605 Code(s): R05 - COUGH Status: Acute Priority: Medium Current Visit: Yes (3) Tobacco abuse disorder SNOMED Code(s): 411291292, 870334812 Code(s): Z72.0 - TOBACCO USE Status: Chronic Priority: High Current Visit: Yes (4) Hypoxemia SNOMED Code(s): 063313450 Code(s): R09.02 - HYPOXEMIA Status: Acute Priority: High Current Visit : Yes - Problem List Review Problem List Initiated/Reviewed/Updated: Yes - My Orders Last 24 Hours: My Active Orders 05/05/17 13:28 May Shower [RC] ASDIRECTED Acetaminophen [Tylenol] 650 mg PO Q4H PRN Docusate Sodium [Colace] 100 mg PO BID PRN Magnesium Hydroxide [Milk of Magnesia] 30 ml PO Q12H PRN Ondansetron [Zofran ODT] 4 mg PO Q4H PRN Ondansetron [Zofran] 4 mg IV Q4H PRN GM Immunization Reflex [OM.PC] Click To Edit Resuscitation Status Routine 05/05/17 13:29 Oxygen Therapy [RC] PRN VTE/DVT Education [RC] Vital Signs [RC] 20,00,04,08,12,16 05/05/17 13:30 Pulse Oximetry [RC] CONTINUOUS 05/05/17 13:31 Intake and Output [RC] 04,16 05/05/17 13:33 Ambulate [RC] Q8HR 05/05/17 13:34 Sequential Compression Device [OM.PC] Per Unit Routine 05/05/17 13:37 Antiembolic Devices [RC] ,05/05/17 13:38 RT Aerosol Therapy [RC] ASDIRECTED 05/05/17 13:41 Vaccines to be Administered [RC] PER UNIT ROUTINE 05/05/17 13:42 Consult to Case Management [CONS] Routine Consult to Computed Tomography Technologist [CONS] Routine OT Evaluation and Treatment [CONS] Routine PT Evaluation and Treatment [CONS] Routine Respiratory Care Assess and Treatment [CONS] Routine 05/05/17 14:00 Azithromycin [Zithromax] 500 mg PO DAILY Magnesium Rep Pharmacy to Dose [Pharmacy to Dose - Magnesium Replacement] 1 dose .XX ASDIRECTED Nicotine [Habitrol] 21 mg TRDERM DAILY 05/05/17 14:09 VTE/DVT Education [RC] 1000 05/05/17 14:15 Potassium Rep Pharmacy to Dose [Pharmacy to Dose - Potassium Replacement] 1 dose .XX ASDIRECTED 05/05/17 14:20 Morphine 0.5 mg IVPUSH Q2H PRN 05/05/17 Lunch Regular Diet [DIET] 05/06/17 06:39 RT Aerosol Therapy [RC] ASDIRECTED 05/06/17 06:45 Albuterol/Ipratropium [DuoNeb 3.0-0.5 MG/3 ML] 3 ml NEB Q6HRRT 05/06/17 06:56 STREP PNEUMONIAE ANTIGEN [MREF] Routine 05/06/17 07:05 RT Post Treatment Assessment [RC] Click to Edit RT Pre-Treatment Assessment [RC] Click to Edit 05/06/17 07:15 Fluticasone/Salmeterol [Advair Diskus 250-50] 1 puff INH BID Tiotropium [Spiriva HandiHaler] 18 mcg INH DAILY 05/06/17 08:30 RESPIRATORY PANEL BY PCR [MREF] Routine 05/06/17 08:52 Incentive Spirometry [RT Incentive Spirometry] [RC] ASDIRECTED CXR [Chest 2V] [CR] Routine 05/06/17 08:54 Acapella [RT Chest Physiotherapy] [RC] ASDIRECTED 05/06/17 09:00 Remove Patch 0 ea TRDERM DAILY guaiFENesin [Mucinex] 1,200 mg PO BID 05/06/17 15:00 predniSONE 40 mg PO TID 05/07/17 05:00 BASIC METABOLIC PANEL,BMP [CHEM] DAILY CBC WITH AUTO DIFF [HEME] DAILY 05/08/17 05:00 BASIC METABOLIC PANEL,BMP [CHEM] DAILY CBC WITH AUTO DIFF [HEME] DAILY 05/09/17 05:00 BASIC METABOLIC PANEL,BMP [CHEM] DAILY CBC WITH AUTO DIFF [HEME] DAILY - Plan Plan:: Patient seen and examined at bedside. He feels much better. Currently, denies any acute issues. Please see treatment above. May possible discharged in AM. He would need a PFT for formal diagnosis of COPD. I/P Acute: Reactive airway disease: - CXR suggestive of emphysematous change - Prior ED visit with similar symptoms (02/19/16) - 40+ year 1-2 ppd smoker - Normal WBC - No fever - Unremarkable EKG - D-dimer/troponin negative - Improvement with Duo-neb/albuterol, will continue with PRN therapy - RT consult - Continue O2 via NC with goal of weaning off O2. - Strongly advised to have outpatient PFT. - Discussed case with Dr. Sauceda, hospitalist. He advised to continue steroid taper with first dose given in ED at 60mg. Continue TID while decreasing to 40mg after 3 doses, 20mg TID, and so on. Will switch to methylprednisonlone 125mg daily - Azithromycin abx started - Rocephin added (05/06/17) - Will monitor magnesium and potassium. - Cough and wheezing in left lung [place]- Ordered mucinex - Questioning cardiac component - ordered echo and CTA - CRP <0.2 Elevated bilirubin - 1.6 - LFTs not elevated - Will have follow-up with PCP for possible monitoring/treatment if necessary. Chronic: Tobacco use disorder - Nicotine patch as ordered - Will provide tobacco cessation materials Plan: OT/PT SW/CM for discharge planning GI/DVT prophylaxis Incentive spirometer/acapella Follow-up with pulmonology after discharge Poor dental hygiene - will encourage dental follow-up after visit Routine AM labs as ordered Other orders as indicated above <Corine Ingram - Last Filed: 05/07/17 12:50> - Patient Data Vitals - Most Recent: Last Vital Signs Temp 37.1 C 05/07/17 08:00 Pulse 78 05/07/17 08:20 Resp 20 05/07/17 08:00 BP 127/82 05/07/17 08:00 Pulse Ox 88 L 05/07/17 09:16 I&O - Last 24 Hours: Intake & Output 05/06/17 05/07/17 05/07/17 22:59 06:59 14:59 Intake Total 1830 600 0 Output Total 1000 875 Balance 830 -275 0 Lab Results Last 24 Hours: Laboratory Results - last 24 hr 05/07/17 05/07/17 Range/Units 05:38 05:38 WBC 9.90 H (4.23-9.07) K/mm3 RBC 4.84 (4.63-6.08) M/mm3 Hgb 16.1 (13.7-17.5) gm/L Hct 46.3 (40.1-51.0) % MCV 95.7 H (79.0-92.2) fl MCH 33.3 H (25.7-32.2) pg MCHC 34.8 (32.2-35.5) g/dl RDW Std Deviation 46.2 H (35.1-43.9) fL Plt Count 111 L (163-337) K/mm3 MPV 12.0 (9.4-12.3) fl Neut % (Auto) 77.4 H (34.0-67.9) % Lymph % (Auto) 13.2 L (21.8-53.1) % Rhea % (Auto) 9.3 (5.3-12.2) % Eos % (Auto) 0 L (0.8-7.0) Baso % (Auto) 0.1 (0.1-1.2) % Neut # (Auto) 7.66 H (1.78-5.38) K/mm3 Lymph # (Auto) 1.31 L (1.32-3.57) K/mm3 Rhea # (Auto) 0.92 H (0.30-0.82) K/mm3 Eos # (Auto) 0.00 L (0.04-0.54) K/mm3 Baso # (Auto) 0.01 (0.01-0.08) K/mm3 Sodium 143 (136-145) mEq/L Potassium 3.5 (3.5-5.1) mEq/L Chloride 108 H (98-107) mEq/L Carbon Dioxide 25 (21-32) mEq/L Anion Gap 13.5 (5-15) BUN 17 (7-18) mg/dL Creatinine 0.8 (0.7-1.3) mg/dL Est Cr Clr Drug Dosing 113.17 mL/min Estimated GFR (MDRD) > 60 (>60) mL/min BUN/Creatinine Ratio 21.3 H (14-18) Glucose 104 (74-106) mg/dL Calcium 8.2 L (8.5-10.1) mg/dL C-Reactive Protein < 0.2 (<1.0) mg/dL [place] Results Last 24 Hours: Microbiology 05/06/17 08:30 Respiratory Virus Panel (PCR) ([place]) - Final Nasopharyngeal Swab 05/06/17 09:18 Streptococcus pneumoniae Antigen (M - Final Urine - Bladder Med Orders - Current: Current Medications Acetaminophen (Tylenol) 650 mg PO Q4H PRN PRN Reason: Pain (Mild 1-3)/fever Albuterol/Ipratropium (Duoneb 3.0-0.5 Mg/3 Ml) 3 ml NEB Q6HRRT [facility] Last Admin: 05/07/17 09:13 Dose: 3 ml Docusate Sodium (Colace) 100 mg PO BID PRN PRN Reason: Constipation Guaifenesin (Mucinex) 1,200 mg PO BID [facility] Last Admin: 05/07/17 09:39 Dose: 1,200 mg Hydralazine HCl (Apresoline) 20 mg IVPUSH Q4H PRN PRN Reason: Hypertension Ceftriaxone Sodium 1 gm/ (Sodium Chloride) 100 mls @ 200 mls/hr IV Q24H [facility] Last Admin: 05/07/17 11:39 Dose: 200 mls/hr Lorazepam (Ativan) 1 mg IVPUSH Q6H PRN; Protocol PRN Reason: Anxiety Magnesium Hydroxide (Milk Of Magnesia) 30 ml PO Q12H PRN PRN Reason: Constipation Methylprednisolone Sodium Succinate (Solu-Medrol) 125 mg IVPUSH DAILY [facility] Last Admin: 05/07/17 09:44 Dose: 125 mg Metoprolol Tartrate (Lopressor) 5 mg IVPUSH Q4H PRN PRN Reason: Tachycardia Miscellaneous Information (Remove Patch) 0 ea TRDERM DAILY [facility] Last Admin: 05/07/17 09:40 Dose: 1 ea Mometasone Furoate/Formoterol Fumar (Dulera 200-5 Mcg) 2 puff IH BID [facility] Last Admin: 05/07/17 09:13 Dose: 2 puff Morphine Sulfate (Morphine) 0.5 mg IVPUSH Q2H PRN PRN Reason: Dyspnea Nicotine (Habitrol) 21 mg TRDERM DAILY [facility] Last Admin: 05/07/17 09:40 Dose: 21 mg Ondansetron HCl (Zofran) 4 mg IV Q4H PRN PRN Reason: Nausea/Vomiting Ondansetron HCl (Zofran Odt) 4 mg PO Q4H PRN PRN Reason: nausea, able to take PO Potassium Chloride (Klor-Con M20) 40 meq PO BID [facility] Temazepam (Restoril) 15 mg PO BEDTIME PRN PRN Reason: Sleep Tiotropium [place] (Spiriva Handihaler) 18 mcg INH DAILY [facility] Last Admin: 05/07/17 09:13 Dose: 1 puff Discontinued Medications Albuterol (Proventil Neb Soln) 2.5 mg NEB ONETIME ONE Stop: 05/05/17 11:02 Last Admin: 05/05/17 11:05 Dose: 2.5 mg Albuterol/Ipratropium (Duoneb 3.0-0.5 Mg/3 Ml) 3 ml NEB ONETIME ONE Stop: 05/05/17 09:20 Last Admin: 05/05/17 09:36 Dose: 3 ml Albuterol/Ipratropium (Duoneb 3.0-0.5 Mg/3 Ml) 3 ml NEB Q4H PRN PRN Reason: Shortness Of Breath/wheezing Last Admin: 05/06/17 02:20 Dose: 3 ml Azithromycin (Zithromax) 500 mg PO DAILY [facility] Stop: 05/07/17 09:01 Last Admin: 05/07/17 09:40 Dose: 500 mg Sodium Chloride (Normal Saline) 100 mls @ 65 mls/hr IV ASDIRECTED [facility] Stop: 05/06/17 13:00 Last Admin: 05/06/17 11:22 Dose: 65 mls/hr Ceftriaxone Sodium 1 gm/ (Sodium Chloride) 100 mls @ 200 mls/hr IV Q24H [facility] Last Admin: 05/06/17 12:30 Dose: Not Given Sodium Chloride (Normal Saline) 100 mls @ 80 mls/hr IV ASDIRECTED [facility] Stop: 05/06/17 13:00 Last Admin: 05/06/17 11:29 Dose: 80 mls/hr Iopamidol (Isovue-370 (76%)) 100 ml IVPUSH ONETIME ONE Stop: 05/06/17 10:08 Last Admin: 05/06/17 11:22 Dose: 100 ml Iopamidol (Isovue-370 (76%)) 100 ml IVPUSH ONETIME ONE Stop: 05/06/17 10:49 Last Admin: 05/06/17 11:22 Dose: 100 ml Magnesium Sulfate (Pharmacy To Dose - Magnesium Replacement) 1 dose .XX ASDIRECTED [facility] Methylprednisolone Sodium Succinate (Solu-Medrol) 60 mg IVPUSH ONETIME ONE Stop: 05/05/17 17:01 Last Admin: 05/05/17 17:46 Dose: 60 mg Methylprednisolone Sodium Succinate (Solu-Medrol) 60 mg IVPUSH ONETIME ONE Stop: 05/06/17 00:00 Last Admin: 05/06/17 00:08 Dose: 60 mg Methylprednisolone Sodium Succinate (Solu-Medrol) 40 mg IVPUSH Q12H [facility] Last Admin: 05/06/17 11:28 Dose: 40 mg Potassium Chloride (Pharmacy To Dose - Potassium Replacement) 1 dose .XX ASDIRECTED [facility] Prednisone (Prednisone) 60 mg PO ONETIME STA Stop: 05/05/17 09:20 Last Admin: 05/05/17 09:30 Dose: 60 mg Prednisone (Prednisone) 60 mg PO TID [facility] Stop: 05/06/17 09:01 Prednisone (Prednisone) 60 mg PO ONETIME ONE Stop: 05/06/17 08:01 Last Admin: 05/06/17 08:23 Dose: 60 mg Prednisone (Prednisone) 40 mg PO TID [facility] Fluticasone/Salmeterol (Advair Diskus 250-50) 1 puff INH BID [facility] Last Admin: 05/07/17 08:05 Dose: Not Given Sodium Chloride (Saline Flush) 10 ml FLUSH ONETIME PRN PRN Reason: IV FLUSH Stop: 05/06/17 13:00 Last Admin: 05/06/17 11:22 Dose: 10 ml Temazepam (Restoril) 7.5 mg PO BEDTIME PRN PRN Reason: Sleep - Problem List & Annotations (1) COPD exacerbation SNOMED Code(s): 048329111, 388750651 Code(s): J44.1 - CHRONIC OBSTRUCTIVE PULMONARY DISEASE W (ACUTE) EXACERBATION Status: Acute Current Visit: Yes (2) Cough SNOMED Code(s): 75045129 Code(s): R05 - COUGH Status: Acute Priority: Medium Current Visit: Yes (3) Hypoxemia SNOMED Code(s): 377482173 Code(s): R09.02 - HYPOXEMIA Status: Acute Priority: High Current Visit : Yes (4) Reactive airway disease with wheezing SNOMED Code(s): 465296426871 Code(s): J45.909 - UNSPECIFIED ASTHMA, UNCOMPLICATED Status: Acute Priority: High Current Visit: Yes Qualifiers: Asthma severity: unspecified severity Asthma complication type: with acute exacerbation Qualified Code(s): J45.901 - Unspecified asthma with (acute) exacerbation (5) Tobacco abuse disorder SNOMED Code(s): 290370225, 028726810 Code(s): Z72.0 - TOBACCO USE Status: Chronic Priority: High Current Visit: Yes (6) Acute exacerbation of COPD with asthma SNOMED Code(s): 929408757 Code(s): J44.1 - CHRONIC OBSTRUCTIVE PULMONARY DISEASE W (ACUTE) EXACERBATION ; J45.901 - UNSPECIFIED ASTHMA WITH (ACUTE) EXACERBATION Status: Acute Current Visit: No - My Orders Last 24 Hours: My Active Orders 05/07/17 21:00 Potassium Chloride [Klor-Con M20] 40 meq PO BID - Plan Plan:: Hypoxia without obvious infection, will continue empiric treatment. Currently is taking Zithromax and Rocephin.
[2017-05-06] MEDS: Formoterol/Mometasone 200-5 MCG 8.8 GM Inhaler IH SCH ×2 (09:37→21:10)
[2017-05-06] MEDS: guaiFENesin 600 MG Tab.ER PO SCH ×2 (09:45→20:48)
[2017-05-06] MEDS ORDERED: methylPREDNISolone Sodium Succinate 40 MG/1 ML SDV IVPUSH SCH (10:00)
[2017-05-06] MEDS ORDERED: Sodium Chloride 0.9% 10 ML Syringe FLUSH PRN (10:07)
[2017-05-06] MEDS ORDERED: Iopamidol 755 Mg/ML 100 ML Bottle IVPUSH ONE ×2 (10:07→10:48)
[2017-05-06] MEDS ORDERED: Sodium Chloride 0.9% 100 ML IV SCH (10:15)
[2017-05-06] MEDS ORDERED: cefTRIAXone 1 GM in Sodium Chloride 0.9% 100 ML IV SCH (11:00)
[2017-05-06] MEDS: Sodium Chloride 0.9% 100 ML IV SCH ×2 (11:22→11:29)
--- NOTE | 2017-05-06 11:49 | CT ---
CT chest Technique: Multiple axial sections were obtained through the chest. Intravenous contrast was utilized. Study has been performed as a pulmonary angiogram protocol. Findings: Pulmonary arteries show no filling defects. Nothing is seen to indicate pulmonary embolism at this time. Calcified granulomas are seen within the spleen. Several low density lesions are noted within the liver. Calcified granuloma is seen within the right lung base. Calcified hilar lymph nodes and calcified mediastinal lymph nodes are seen. Emphysematous changes are present within both lungs. Linear densities are noted within both lung bases most likely representing combination of atelectasis as well as scarring. Impression: 1. Previous granulomatous disease. 2. Emphysematous change. 3. No findings of pulmonary embolism. 4. Linear densities within both lung bases, worse on the right side most likely representing a combination of atelectasis and scarring. 5. Other incidental findings. Diagnostic code #3
[2017-05-06] MEDS: cefTRIAXone 1 GM in Sodium Chloride 0.9% 100 ML IV SCH (11:50)
[2017-05-06] MEDS ORDERED: predniSONE 20 MG Tab PO SCH (15:00)
[2017-05-07] MEDS: Albuterol/Ipratropium 3.0-0.5 MG/3 ML Neb Soln NEB SCH ×4 (03:17→20:57)
[2017-05-07] MEDS: Fluticasone/Salmeterol 250-50 MCG Inhalation Powder 14/Diskus INH SCH ×2 (08:04→08:05)
[2017-05-07] MEDS ORDERED: methylPREDNISolone Sodium Succinate 125 MG/2 ML SDV IVPUSH SCH (09:00)
[2017-05-07] MEDS: Formoterol/Mometasone 200-5 MCG 8.8 GM Inhaler IH SCH ×2 (09:13→20:57)
[2017-05-07] MEDS: Tiotropium Inhaler 18 MCG Inhalation Powder Cap Kit of 5 INH SCH (09:13)
[2017-05-07] MEDS: guaiFENesin 600 MG Tab.ER PO SCH ×2 (09:39→21:12)
[2017-05-07] MEDS: Azithromycin 250 MG Tab PO SCH (09:40)
[2017-05-07] MEDS: Nicotine 21 MG/24 Hr Patch TRDERM SCH (09:40)
--- NOTE | 2017-05-07 10:07 | PCM.PN ---
- General Info Date of Service: 05/07/17 Functional Status: Reports: Tolerating Diet, Ambulating - Review of Systems General: Reports: No Symptoms HEENT: Reports: No Symptoms Pulmonary: Reports: No Symptoms Cardiovascular: Reports: No Symptoms Gastrointestinal: Reports: No Symptoms Genitourinary: Reports: No Symptoms Musculoskeletal: Reports: No Symptoms Skin: Reports: No Symptoms Neurological: Reports: No Symptoms Psychiatric: Reports: No Symptoms - Patient Data Vitals - Most Recent: Last Vital Signs Temp 37.1 C 05/07/17 08:00 Pulse 78 05/07/17 08:20 Resp 20 05/07/17 08:00 BP 127/82 05/07/17 08:00 Pulse Ox 88 L 05/07/17 09:16 Weight - Most Recent: 81.329 kg I&O - Last 24 Hours: Intake & Output 05/06/17 05/07/17 05/07/17 22:59 06:59 14:59 Intake Total 1830 600 Output Total 1000 875 Balance 830 -275 Lab Results Last 24 Hours: Laboratory Results - last 24 hr 05/06/17 05/06/17 05/06/17 Range/Units 05:40 05:40 12:18 WBC (4.23-9.07) K/mm3 RBC (4.63-6.08) M/mm3 Hgb (13.7-17.5) gm/L Hct (40.1-51.0) % MCV (79.0-92.2) fl MCH (25.7-32.2) pg MCHC (32.2-35.5) g/dl RDW Std Deviation (35.1-43.9) fL Plt Count (163-337) K/mm3 MPV (9.4-12.3) fl Neut % (Auto) (34.0-67.9) % Lymph % (Auto) (21.8-53.1) % [place] % (Auto) (5.3-12.2) % Eos % (Auto) (0.8-7.0) Baso % (Auto) (0.1-1.2) % Neut # (Auto) (1.78-5.38) K/mm3 Lymph # (Auto) (1.32-3.57) K/mm3 [place] # (Auto) (0.30-0.82) K/mm3 Eos # (Auto) (0.04-0.54) K/mm3 Baso # (Auto) (0.01-0.08) K/mm3 Puncture Site Rt radial ABG pH 7.40 (7.35-7.45) ABG pCO2 34.6 L (35.0-45.0) mmHg ABG pO2 54.0 L (80.0-100.0) mmHg ABG HCO3 21.1 L (22.0-26.0) meq/L ABG O2 Saturation 88.9 L (96.0-97.0) % ABG Base Excess -2.4 L (-2-2.0) Karan Test Positive A-a Gradient 120 mmHg O2 Delivery Device Nasal cannula Oxygen Flow Rate 3.5 FiO2 34.00 (21.00-100.00) % Sodium (136-145) mEq/L Potassium (3.5-5.1) mEq/L Chloride (98-107) mEq/L Carbon Dioxide (21-32) mEq/L Anion Gap (5-15) BUN (7-18) mg/dL Creatinine (0.7-1.3) mg/dL Est Cr Clr Drug Dosing mL/min Estimated GFR (MDRD) (>60) mL/min BUN/Creatinine Ratio (14-18) Glucose (74-106) mg/dL Hemoglobin A1c 5.40 (4.50-6.20) % Calcium (8.5-10.1) mg/dL C-Reactive Protein < 0.2 (<1.0) mg/dL Triglycerides 26 (<150) mg/dL Cholesterol 133 (<200) mg/dL LDL Cholesterol Direct 73 (<100) mg/dL HDL Cholesterol 59.0 (40-59) mg/dL 05/07/17 05/07/17 Range/Units 05:38 05:38 WBC 9.90 H (4.23-9.07) K/mm3 RBC 4.84 (4.63-6.08) M/mm3 Hgb 16.1 (13.7-17.5) gm/L Hct 46.3 (40.1-51.0) % MCV 95.7 H (79.0-92.2) fl MCH 33.3 H (25.7-32.2) pg MCHC 34.8 (32.2-35.5) g/dl RDW Std Deviation 46.2 H (35.1-43.9) fL Plt Count 111 L (163-337) K/mm3 MPV 12.0 (9.4-12.3) fl Neut % (Auto) 77.4 H (34.0-67.9) % Lymph % (Auto) 13.2 L (21.8-53.1) % [place] % (Auto) 9.3 (5.3-12.2) % Eos % (Auto) 0 L (0.8-7.0) Baso % (Auto) 0.1 (0.1-1.2) % Neut # (Auto) 7.66 H (1.78-5.38) K/mm3 Lymph # (Auto) 1.31 L (1.32-3.57) K/mm3 [place] # (Auto) 0.92 H (0.30-0.82) K/mm3 Eos # (Auto) 0.00 L (0.04-0.54) K/mm3 Baso # (Auto) 0.01 (0.01-0.08) K/mm3 Puncture Site ABG pH (7.35-7.45) ABG pCO2 (35.0-45.0) mmHg ABG pO2 (80.0-100.0) mmHg ABG HCO3 (22.0-26.0) meq/L ABG O2 Saturation (96.0-97.0) % ABG Base Excess (-2-2.0) Karan Test A-a Gradient mmHg O2 Delivery Device Oxygen Flow Rate FiO2 (21.00-100.00) % Sodium 143 (136-145) mEq/L Potassium 3.5 (3.5-5.1) mEq/L Chloride 108 H (98-107) mEq/L Carbon Dioxide 25 (21-32) mEq/L Anion Gap 13.5 (5-15) BUN 17 (7-18) mg/dL Creatinine 0.8 (0.7-1.3) mg/dL Est Cr Clr Drug Dosing 113.17 mL/min Estimated GFR (MDRD) > 60 (>60) mL/min BUN/Creatinine Ratio 21.3 H (14-18) Glucose 104 (74-106) mg/dL Hemoglobin A1c (4.50-6.20) % Calcium 8.2 L (8.5-10.1) mg/dL C-Reactive Protein < 0.2 (<1.0) mg/dL Triglycerides (<150) mg/dL Cholesterol (<200) mg/dL LDL Cholesterol Direct (<100) mg/dL HDL Cholesterol (40-59) mg/dL [place] Results Last 24 Hours: Microbiology 05/06/17 08:30 Respiratory Virus Panel (PCR) ([place]) - Final Nasopharyngeal Swab 05/06/17 09:18 Streptococcus pneumoniae Antigen (M - Final Urine - Bladder Med Orders - Current: Current Medications Acetaminophen (Tylenol) 650 mg PO Q4H PRN PRN Reason: Pain (Mild 1-3)/fever Albuterol/Ipratropium (Duoneb 3.0-0.5 Mg/3 Ml) 3 ml NEB Q6HRRT [facility] Last Admin: 05/07/17 09:13 Dose: 3 ml Docusate Sodium (Colace) 100 mg PO BID PRN PRN Reason: Constipation Guaifenesin (Mucinex) 1,200 mg PO BID [facility] Last Admin: 05/07/17 09:39 Dose: 1,200 mg Hydralazine HCl (Apresoline) 20 mg IVPUSH Q4H PRN PRN Reason: Hypertension Ceftriaxone Sodium 1 gm/ (Sodium Chloride) 100 mls @ 200 mls/hr IV Q24H [facility] Last Admin: 05/06/17 11:50 Dose: 200 mls/hr Lorazepam (Ativan) 1 mg IVPUSH Q6H PRN; Protocol PRN Reason: Anxiety Magnesium Hydroxide (Milk Of Magnesia) 30 ml PO Q12H PRN PRN Reason: Constipation Methylprednisolone Sodium Succinate (Solu-Medrol) 125 mg IVPUSH DAILY [facility] Last Admin: 05/07/17 09:44 Dose: 125 mg Metoprolol Tartrate (Lopressor) 5 mg IVPUSH Q4H PRN PRN Reason: Tachycardia Miscellaneous Information (Remove Patch) 0 ea TRDERM DAILY [facility] Last Admin: 05/07/17 09:40 Dose: 1 ea Mometasone Furoate/Formoterol Fumar (Dulera 200-5 Mcg) 2 puff IH BID [facility] Last Admin: 05/07/17 09:13 Dose: 2 puff Morphine Sulfate (Morphine) 0.5 mg IVPUSH Q2H PRN PRN Reason: Dyspnea Nicotine (Habitrol) 21 mg TRDERM DAILY [facility] Last Admin: 05/07/17 09:40 Dose: 21 mg Ondansetron HCl (Zofran) 4 mg IV Q4H PRN PRN Reason: Nausea/Vomiting Ondansetron HCl (Zofran Odt) 4 mg PO Q4H PRN PRN Reason: nausea, able to take PO Temazepam (Restoril) 15 mg PO BEDTIME PRN PRN Reason: Sleep Tiotropium [place] (Spiriva Handihaler) 18 mcg INH DAILY [facility] Last Admin: 05/07/17 09:13 Dose: 1 puff Discontinued Medications Albuterol (Proventil Neb Soln) 2.5 mg NEB ONETIME ONE Stop: 05/05/17 11:02 Last Admin: 05/05/17 11:05 Dose: 2.5 mg Albuterol/Ipratropium (Duoneb 3.0-0.5 Mg/3 Ml) 3 ml NEB ONETIME ONE Stop: 05/05/17 09:20 Last Admin: 05/05/17 09:36 Dose: 3 ml Albuterol/Ipratropium (Duoneb 3.0-0.5 Mg/3 Ml) 3 ml NEB Q4H PRN PRN Reason: Shortness Of Breath/wheezing Last Admin: 05/06/17 02:20 Dose: 3 ml Azithromycin (Zithromax) 500 mg PO DAILY [facility] Stop: 05/07/17 09:01 Last Admin: 05/07/17 09:40 Dose: 500 mg Sodium Chloride (Normal Saline) 100 mls @ 65 mls/hr IV ASDIRECTED [facility] Stop: 05/06/17 13:00 Last Admin: 05/06/17 11:22 Dose: 65 mls/hr Ceftriaxone Sodium 1 gm/ (Sodium Chloride) 100 mls @ 200 mls/hr IV Q24H [facility] Last Admin: 05/06/17 12:30 Dose: Not Given Sodium Chloride (Normal Saline) 100 mls @ 80 mls/hr IV ASDIRECTED [facility] Stop: 05/06/17 13:00 Last Admin: 05/06/17 11:29 Dose: 80 mls/hr Iopamidol (Isovue-370 (76%)) 100 ml IVPUSH ONETIME ONE Stop: 05/06/17 10:08 Last Admin: 05/06/17 11:22 Dose: 100 ml Iopamidol (Isovue-370 (76%)) 100 ml IVPUSH ONETIME ONE Stop: 05/06/17 10:49 Last Admin: 05/06/17 11:22 Dose: 100 ml Magnesium Sulfate (Pharmacy To Dose - Magnesium Replacement) 1 dose .XX ASDIRECTED [facility] Methylprednisolone Sodium Succinate (Solu-Medrol) 60 mg IVPUSH ONETIME ONE Stop: 05/05/17 17:01 Last Admin: 05/05/17 17:46 Dose: 60 mg Methylprednisolone Sodium Succinate (Solu-Medrol) 60 mg IVPUSH ONETIME ONE Stop: 05/06/17 00:00 Last Admin: 05/06/17 00:08 Dose: 60 mg Methylprednisolone Sodium Succinate (Solu-Medrol) 40 mg IVPUSH Q12H [facility] Last Admin: 05/06/17 11:28 Dose: 40 mg Potassium Chloride (Pharmacy To Dose - Potassium Replacement) 1 dose .XX ASDIRECTED [facility] Prednisone (Prednisone) 60 mg PO ONETIME STA Stop: 05/05/17 09:20 Last Admin: 05/05/17 09:30 Dose: 60 mg Prednisone (Prednisone) 60 mg PO TID [facility] Stop: 05/06/17 09:01 Prednisone (Prednisone) 60 mg PO ONETIME ONE Stop: 05/06/17 08:01 Last Admin: 05/06/17 08:23 Dose: 60 mg Prednisone (Prednisone) 40 mg PO TID [facility] Fluticasone/Salmeterol (Advair Diskus 250-50) 1 puff INH BID [facility] Last Admin: 05/07/17 08:05 Dose: Not Given Sodium Chloride (Saline Flush) 10 ml FLUSH ONETIME PRN PRN Reason: IV FLUSH Stop: 05/06/17 13:00 Last Admin: 05/06/17 11:22 Dose: 10 ml Temazepam (Restoril) 7.5 mg PO BEDTIME PRN PRN Reason: Sleep - Exam Quality Assessment: Supplemental Oxygen, DVT Prophylaxis General: Alert, Oriented, Cooperative, No Acute Distress HEENT: Pupils Equal, Pupils Reactive, EOMI Neck: Supple, Trachea Midline, No JVD Lungs: Normal Respiratory Effort, Decreased Breath Sounds Cardiovascular: Regular Rate, Regular Rhythm GI/Abdominal Exam: Normal Bowel Sounds, Soft, Non-Tender, No Distention (Male) Exam: Deferred Back Exam: Normal Inspection Extremities: Normal Inspection Skin: Warm Wound/Incisions: Healing Well Neurological: No New Focal Deficit Psy/Mental Status: Alert, Normal Affect, Normal Mood - Problem List & Annotations (1) COPD exacerbation SNOMED Code(s): 017636130, 861419666 Code(s): J44.1 - CHRONIC OBSTRUCTIVE PULMONARY DISEASE W (ACUTE) EXACERBATION Status: Acute Current Visit: Yes (2) Cough SNOMED Code(s): 05984874 Code(s): R05 - COUGH Status: Acute Priority: Medium Current Visit: Yes (3) Hypoxemia SNOMED Code(s): 756752652 Code(s): R09.02 - HYPOXEMIA Status: Acute Priority: High Current Visit : Yes (4) Reactive airway disease with wheezing SNOMED Code(s): 085885712801 Code(s): J45.909 - UNSPECIFIED ASTHMA, UNCOMPLICATED Status: Acute Priority: High Current Visit: Yes Qualifiers: Asthma severity: unspecified severity Asthma complication type: with acute exacerbation Qualified Code(s): J45.901 - Unspecified asthma with (acute) exacerbation (5) Tobacco abuse disorder SNOMED Code(s): 340419579, 647996733 Code(s): Z72.0 - TOBACCO USE Status: Chronic Priority: High Current Visit: Yes (6) Acute exacerbation of COPD with asthma SNOMED Code(s): 636440960 Code(s): J44.1 - CHRONIC OBSTRUCTIVE PULMONARY DISEASE W (ACUTE) EXACERBATION ; J45.901 - UNSPECIFIED ASTHMA WITH (ACUTE) EXACERBATION Status: Acute Current Visit: No - Problem List Review Problem List Initiated/Reviewed/Updated: Yes - My Orders Last 24 Hours: My Active Orders 05/07/17 21:00 Potassium Chloride [Klor-Con M20] 40 meq PO BID - Plan Plan:: Patient seen and examined at bedside. He feels much better. Currently, denies any acute issues. Please see treatment above. May possible discharged in AM. He would need a PFT for formal diagnosis of COPD. I/P Acute: Reactive airway disease: - CXR suggestive of emphysematous change - Prior ED visit with similar symptoms (02/19/16) - 40+ year 1-2 ppd smoker - Normal WBC - No fever - Unremarkable EKG - D-dimer/troponin negative - Improvement with Duo-neb/albuterol, will continue with PRN therapy - RT consult - Continue O2 via NC with goal of weaning off O2. - Strongly advised to have outpatient PFT. - Discussed case with Dr. Sauceda, hospitalist. He advised to continue steroid taper with first dose given in ED at 60mg. Continue TID while decreasing to 40mg after 3 doses, 20mg TID, and so on. Started Solumedrol 125 mg IV QID, slow taper is needed. - Azithromycin abx started - Rocephin added (05/06/17) - Will monitor magnesium and potassium. - Cough and wheezing in left lung [place]- Ordered mucinex - Questioning cardiac component - ordered echo and CTA - CRP <0.2 Elevated bilirubin - 1.6 - LFTs not elevated - Will have follow-up with PCP for possible monitoring/treatment if necessary. Chronic: Tobacco use disorder - Nicotine patch as ordered - Will provide tobacco cessation materials; 1-800-Quit Now Plan: OT/PT SW/CM for discharge planning GI/DVT prophylaxis Incentive spirometer/acapella Follow-up with pulmonology after discharge Poor dental hygiene - will encourage dental follow-up after visit Routine AM labs as ordered Other orders as indicated above
[2017-05-07] MEDS: cefTRIAXone 1 GM in Sodium Chloride 0.9% 100 ML IV SCH (11:39)
[2017-05-07] MEDS: methylPREDNISolone Sodium Succinate 125 MG/2 ML SDV IVPUSH SCH ×2 (16:19→21:12)
[2017-05-07] MEDS: Potassium Chloride 20 MEQ Tab.ER PO SCH (21:12)
[2017-05-08] MEDS: Albuterol/Ipratropium 3.0-0.5 MG/3 ML Neb Soln NEB SCH ×4 (03:12→20:47)
[2017-05-08] MEDS: methylPREDNISolone Sodium Succinate 125 MG/2 ML SDV IVPUSH SCH ×4 (04:01→22:23)
[2017-05-08] MEDS: Nicotine 21 MG/24 Hr Patch TRDERM SCH (08:51)
[2017-05-08] MEDS: guaiFENesin 600 MG Tab.ER PO SCH ×2 (08:52→21:19)
[2017-05-08] MEDS: Potassium Chloride 20 MEQ Tab.ER PO SCH ×2 (08:52→21:19)
[2017-05-08] MEDS: Formoterol/Mometasone 200-5 MCG 8.8 GM Inhaler IH SCH ×2 (09:07→20:47)
[2017-05-08] MEDS: Tiotropium Inhaler 18 MCG Inhalation Powder Cap Kit of 5 INH SCH (09:07)
[2017-05-08] MEDS: cefTRIAXone 1 GM in Sodium Chloride 0.9% 100 ML IV SCH (10:19)
--- NOTE | 2017-05-08 12:05 | PCM.PN ---
- General Info Date of Service: 05/08/17 Functional Status: Reports: Tolerating Diet, Ambulating - Review of Systems General: Reports: No Symptoms HEENT: Reports: No Symptoms Pulmonary: Reports: No Symptoms Cardiovascular: Reports: No Symptoms Gastrointestinal: Reports: No Symptoms Genitourinary: Reports: No Symptoms Musculoskeletal: Reports: No Symptoms Skin: Reports: No Symptoms Neurological: Reports: No Symptoms Psychiatric: Reports: No Symptoms - Patient Data Vitals - Most Recent: Last Vital Signs Temp 36.8 C 05/08/17 08:45 Pulse 90 05/08/17 08:45 Resp 19 05/08/17 08:45 BP 127/75 05/08/17 08:45 Pulse Ox 89 L 05/08/17 09:16 Weight - Most Recent: 81.692 kg I&O - Last 24 Hours: Intake & Output 05/07/17 05/08/17 05/08/17 22:59 06:59 14:59 Intake Total 1360 800 180 Output Total 850 Balance 510 800 180 Lab Results Last 24 Hours: Laboratory Results - last 24 hr 05/08/17 05/08/17 Range/Units 05:57 05:57 WBC 10.40 H (4.23-9.07) K/mm3 RBC 4.85 (4.63-6.08) M/mm3 Hgb 16.2 (13.7-17.5) gm/L Hct 46.3 (40.1-51.0) % MCV 95.5 H (79.0-92.2) fl MCH 33.4 H (25.7-32.2) pg MCHC 35.0 (32.2-35.5) g/dl RDW Std Deviation 45.1 H (35.1-43.9) fL Plt Count 117 L (163-337) K/mm3 MPV 12.2 (9.4-12.3) fl Neut % (Auto) 91.5 H (34.0-67.9) % Lymph % (Auto) 4.9 L (21.8-53.1) % [place] % (Auto) 3.3 L (5.3-12.2) % Eos % (Auto) 0 L (0.8-7.0) Baso % (Auto) 0.0 L (0.1-1.2) % Neut # (Auto) 9.52 H (1.78-5.38) K/mm3 Lymph # (Auto) 0.51 L (1.32-3.57) K/mm3 [place] # (Auto) 0.34 (0.30-0.82) K/mm3 Eos # (Auto) 0.00 L (0.04-0.54) K/mm3 Baso # (Auto) 0.00 L (0.01-0.08) K/mm3 Manual Slide Review Normal smear Sodium 138 (136-145) mEq/L Potassium 4.0 (3.5-5.1) mEq/L Chloride 106 (98-107) mEq/L Carbon Dioxide 23 (21-32) mEq/L Anion Gap 13.0 (5-15) BUN 16 (7-18) mg/dL Creatinine 0.7 (0.7-1.3) mg/dL Est Cr Clr Drug Dosing 129.33 mL/min Estimated GFR (MDRD) > 60 (>60) mL/min BUN/Creatinine Ratio 22.9 H (14-18) Glucose 151 H (74-106) mg/dL Calcium 8.5 (8.5-10.1) mg/dL C-Reactive Protein < 0.2 (<1.0) mg/dL Med Orders - Current: Current Medications Acetaminophen (Tylenol) 650 mg PO Q4H PRN PRN Reason: Pain (Mild 1-3)/fever Albuterol/Ipratropium (Duoneb 3.0-0.5 Mg/3 Ml) 3 ml NEB Q6HRRT [facility] Last Admin: 05/08/17 09:06 Dose: 3 ml Docusate Sodium (Colace) 100 mg PO BID PRN PRN Reason: Constipation Guaifenesin (Mucinex) 1,200 mg PO BID [facility] Last Admin: 05/08/17 08:52 Dose: 1,200 mg Hydralazine HCl (Apresoline) 20 mg IVPUSH Q4H PRN PRN Reason: Hypertension Ceftriaxone Sodium 1 gm/ (Sodium Chloride) 100 mls @ 200 mls/hr IV Q24H [facility] Last Admin: 05/08/17 10:19 Dose: 200 mls/hr Lorazepam (Ativan) 1 mg IVPUSH Q6H PRN; Protocol PRN Reason: Anxiety Magnesium Hydroxide (Milk Of Magnesia) 30 ml PO Q12H PRN PRN Reason: Constipation Methylprednisolone Sodium Succinate (Solu-Medrol) 125 mg IVPUSH Q6H [facility] Last Admin: 05/08/17 10:16 Dose: 125 mg Metoprolol Tartrate (Lopressor) 5 mg IVPUSH Q4H PRN PRN Reason: Tachycardia Miscellaneous Information (Remove Patch) 0 ea TRDERM DAILY [facility] Last Admin: 05/08/17 08:54 Dose: 1 ea Mometasone Furoate/Formoterol Fumar (Dulera 200-5 Mcg) 2 puff IH BID [facility] Last Admin: 05/08/17 09:07 Dose: 2 puff Morphine Sulfate (Morphine) 0.5 mg IVPUSH Q2H PRN PRN Reason: Dyspnea Nicotine (Habitrol) 21 mg TRDERM DAILY [facility] Last Admin: 05/08/17 08:51 Dose: 21 mg Ondansetron HCl (Zofran) 4 mg IV Q4H PRN PRN Reason: Nausea/Vomiting Ondansetron HCl (Zofran Odt) 4 mg PO Q4H PRN PRN Reason: nausea, able to take PO Potassium Chloride (Klor-Con M20) 40 meq PO BID [facility] Last Admin: 05/08/17 08:52 Dose: 40 meq Temazepam (Restoril) 15 mg PO BEDTIME PRN PRN Reason: Sleep Tiotropium [place] (Spiriva Handihaler) 18 mcg INH DAILY [facility] Last Admin: 05/08/17 09:07 Dose: 1 puff Discontinued Medications Albuterol (Proventil Neb Soln) 2.5 mg NEB ONETIME ONE Stop: 05/05/17 11:02 Last Admin: 05/05/17 11:05 Dose: 2.5 mg Albuterol/Ipratropium (Duoneb 3.0-0.5 Mg/3 Ml) 3 ml NEB ONETIME ONE Stop: 05/05/17 09:20 Last Admin: 05/05/17 09:36 Dose: 3 ml Albuterol/Ipratropium (Duoneb 3.0-0.5 Mg/3 Ml) 3 ml NEB Q4H PRN PRN Reason: Shortness Of Breath/wheezing Last Admin: 05/06/17 02:20 Dose: 3 ml Azithromycin (Zithromax) 500 mg PO DAILY [facility] Stop: 05/07/17 09:01 Last Admin: 05/07/17 09:40 Dose: 500 mg Sodium Chloride (Normal Saline) 100 mls @ 65 mls/hr IV ASDIRECTED [facility] Stop: 05/06/17 13:00 Last Admin: 05/06/17 11:22 Dose: 65 mls/hr Ceftriaxone Sodium 1 gm/ (Sodium Chloride) 100 mls @ 200 mls/hr IV Q24H [facility] Last Admin: 05/06/17 12:30 Dose: Not Given Sodium Chloride (Normal Saline) 100 mls @ 80 mls/hr IV ASDIRECTED [facility] Stop: 05/06/17 13:00 Last Admin: 05/06/17 11:29 Dose: 80 mls/hr Magnesium Sulfate/Dextrose 1 (gm/ Premix) 100 mls @ 100 mls/hr IV ONETIME ONE Stop: 05/07/17 14:02 Last Admin: 05/07/17 14:21 Dose: 100 mls/hr Iopamidol (Isovue-370 (76%)) 100 ml IVPUSH ONETIME ONE Stop: 05/06/17 10:08 Last Admin: 05/06/17 11:22 Dose: 100 ml Iopamidol (Isovue-370 (76%)) 100 ml IVPUSH ONETIME ONE Stop: 05/06/17 10:49 Last Admin: 05/06/17 11:22 Dose: 100 ml Magnesium Sulfate (Pharmacy To Dose - Magnesium Replacement) 1 dose .XX ASDIRECTED [facility] Methylprednisolone Sodium Succinate (Solu-Medrol) 60 mg IVPUSH ONETIME ONE Stop: 05/05/17 17:01 Last Admin: 05/05/17 17:46 Dose: 60 mg Methylprednisolone Sodium Succinate (Solu-Medrol) 60 mg IVPUSH ONETIME ONE Stop: 05/06/17 00:00 Last Admin: 05/06/17 00:08 Dose: 60 mg Methylprednisolone Sodium Succinate (Solu-Medrol) 40 mg IVPUSH Q12H [facility] Last Admin: 05/06/17 11:28 Dose: 40 mg Methylprednisolone Sodium Succinate (Solu-Medrol) 125 mg IVPUSH DAILY [facility] Last Admin: 05/07/17 09:44 Dose: 125 mg Potassium Chloride (Pharmacy To Dose - Potassium Replacement) 1 dose .XX ASDIRECTED [facility] Prednisone (Prednisone) 60 mg PO ONETIME STA Stop: 05/05/17 09:20 Last Admin: 05/05/17 09:30 Dose: 60 mg Prednisone (Prednisone) 60 mg PO TID [facility] Stop: 05/06/17 09:01 Prednisone (Prednisone) 60 mg PO ONETIME ONE Stop: 05/06/17 08:01 Last Admin: 05/06/17 08:23 Dose: 60 mg Prednisone (Prednisone) 40 mg PO TID [facility] Fluticasone/Salmeterol (Advair Diskus 250-50) 1 puff INH BID [facility] Last Admin: 05/07/17 08:05 Dose: Not Given Sodium Chloride (Saline Flush) 10 ml FLUSH ONETIME PRN PRN Reason: IV FLUSH Stop: 05/06/17 13:00 Last Admin: 05/06/17 11:22 Dose: 10 ml Temazepam (Restoril) 7.5 mg PO BEDTIME PRN PRN Reason: Sleep - Exam Quality Assessment: Supplemental Oxygen, DVT Prophylaxis General: Alert, Oriented, Cooperative, No Acute Distress HEENT: Pupils Equal, Pupils Reactive, EOMI Neck: Supple, Trachea Midline, No JVD Lungs: Normal Respiratory Effort, Decreased Breath Sounds, Wheezing Cardiovascular: Regular Rate, Regular Rhythm GI/Abdominal Exam: Normal Bowel Sounds, Soft, Non-Tender, No Distention (Male) Exam: Deferred Back Exam: Normal Inspection Extremities: No Pedal Edema, Normal Capillary Refill Skin: Warm, Dry Neurological: No New Focal Deficit, Normal Gait, Normal Speech Psy/Mental Status: Alert, Normal Affect, Normal Mood - Problem List & Annotations (1) COPD exacerbation SNOMED Code(s): 552973619, 785910856 Code(s): J44.1 - CHRONIC OBSTRUCTIVE PULMONARY DISEASE W (ACUTE) EXACERBATION Status: Acute Current Visit: Yes (2) Cough SNOMED Code(s): 47649751 Code(s): R05 - COUGH Status: Acute Priority: Medium Current Visit: Yes (3) Hypoxemia SNOMED Code(s): 850551001 Code(s): R09.02 - HYPOXEMIA Status: Acute Priority: High Current Visit : Yes (4) Reactive airway disease with wheezing SNOMED Code(s): 849143641123 Code(s): J45.909 - UNSPECIFIED ASTHMA, UNCOMPLICATED Status: Acute Priority: High Current Visit: Yes Qualifiers: Asthma severity: unspecified severity Asthma complication type: with acute exacerbation Qualified Code(s): J45.901 - Unspecified asthma with (acute) exacerbation (5) Tobacco abuse disorder SNOMED Code(s): 776523654, 511437247 Code(s): Z72.0 - TOBACCO USE Status: Chronic Priority: High Current Visit: Yes (6) Acute exacerbation of COPD with asthma SNOMED Code(s): 943172646 Code(s): J44.1 - CHRONIC OBSTRUCTIVE PULMONARY DISEASE W (ACUTE) EXACERBATION ; J45.901 - UNSPECIFIED ASTHMA WITH (ACUTE) EXACERBATION Status: Acute Current Visit: No - Problem List Review Problem List Initiated/Reviewed/Updated: Yes - My Orders Last 24 Hours: My Active Orders 05/07/17 16:00 methylPREDNISolone Sod Succ [Solu-MEDROL] 125 mg IVPUSH Q6H 05/07/17 21:00 Potassium Chloride [Klor-Con M20] 40 meq PO BID - Plan Plan:: Patient seen and examined at bedside. He feels much better. Currently, denies any acute issues. Please see treatment above. May possible discharged in AM. He would need a PFT for formal diagnosis of COPD. I/P Acute: Reactive airway disease: - CXR suggestive of emphysematous change - Prior ED visit with similar symptoms (02/19/16) - 40+ year 1-2 ppd smoker - Normal WBC - No fever - Unremarkable EKG - D-dimer/troponin negative - Improvement with Duo-neb/albuterol, will continue with PRN therapy - RT consult - Continue O2 via NC with goal of weaning off O2. - Strongly advised to have outpatient PFT. - Discussed case with Dr. Sauceda, hospitalist. He advised to continue steroid taper with first dose given in ED at 60mg. Continue TID while decreasing to 40mg after 3 doses, 20mg TID, and so on. Started Solumedrol 125 mg IV QID, slow taper is needed. - Azithromycin abx started - Rocephin added (05/06/17) - Will monitor magnesium and potassium. - Cough and wheezing in left lung [place]- Ordered mucinex - Questioning cardiac component - ordered echo and CTA - CRP <0.2 Elevated bilirubin - 1.6 - LFTs not elevated - Will have follow-up with PCP for possible monitoring/treatment if necessary. Chronic: Tobacco use disorder - Nicotine patch as ordered - Will provide tobacco cessation materials; -Quit Now Plan: OT/PT SW/CM for discharge planning GI/DVT prophylaxis Incentive spirometer/acapella Follow-up with pulmonology after discharge Poor dental hygiene - will encourage dental follow-up after visit Routine AM labs as ordered Other orders as indicated above LOS>96 hours for current treatment, titrating off O2
[2017-05-09] MEDS: Albuterol/Ipratropium 3.0-0.5 MG/3 ML Neb Soln NEB SCH ×4 (02:57→20:38)
[2017-05-09] MEDS: methylPREDNISolone Sodium Succinate 125 MG/2 ML SDV IVPUSH SCH ×4 (04:38→17:44)
[2017-05-09] MEDS: Nicotine 21 MG/24 Hr Patch TRDERM SCH (08:15)
[2017-05-09] MEDS: Potassium Chloride 20 MEQ Tab.ER PO SCH ×2 (08:15→21:20)
[2017-05-09] MEDS: guaiFENesin 600 MG Tab.ER PO SCH ×2 (08:16→21:20)
[2017-05-09] MEDS: Tiotropium Inhaler 18 MCG Inhalation Powder Cap Kit of 5 INH SCH (08:41)
[2017-05-09] MEDS: Formoterol/Mometasone 200-5 MCG 8.8 GM Inhaler IH SCH ×2 (08:42→20:38)
--- NOTE | 2017-05-09 10:53 | PCM.PN ---
- General Info Date of Service: 05/09/17 Functional Status: Reports: Pain Controlled, Tolerating Diet, Ambulating, Urinating - Review of Systems General: Reports: No Symptoms HEENT: Reports: No Symptoms Pulmonary: Reports: No Symptoms Cardiovascular: Reports: No Symptoms Gastrointestinal: Reports: No Symptoms Genitourinary: Reports: No Symptoms Musculoskeletal: Reports: No Symptoms Skin: Reports: No Symptoms Neurological: Reports: No Symptoms Psychiatric: Reports: No Symptoms - Patient Data Vitals - Most Recent: Last Vital Signs Temp 36.7 C 05/09/17 07:27 Pulse 86 05/09/17 07:27 Resp 14 05/09/17 07:27 BP 126/68 05/09/17 07:27 Pulse Ox 92 L 05/09/17 08:44 Weight - Most Recent: 81.374 kg I&O - Last 24 Hours: Intake & Output 05/08/17 05/09/17 05/09/17 22:59 06:59 14:59 Intake Total 340 200 300 Balance 340 200 300 Lab Results Last 24 Hours: Laboratory Results - last 24 hr 05/09/17 05/09/17 Range/Units 05:33 05:33 WBC 11.97 H (4.23-9.07) K/mm3 RBC 5.00 (4.63-6.08) M/mm3 Hgb 16.8 (13.7-17.5) gm/L Hct 47.6 (40.1-51.0) % MCV 95.2 H (79.0-92.2) fl MCH 33.6 H (25.7-32.2) pg MCHC 35.3 (32.2-35.5) g/dl RDW Std Deviation 45.4 H (35.1-43.9) fL Plt Count 132 L (163-337) K/mm3 MPV 11.9 (9.4-12.3) fl Neut % (Auto) 88.2 H (34.0-67.9) % Lymph % (Auto) 5.9 L (21.8-53.1) % [place] % (Auto) 5.8 (5.3-12.2) % Eos % (Auto) 0 L (0.8-7.0) Baso % (Auto) 0.1 (0.1-1.2) % Neut # (Auto) 10.56 H (1.78-5.38) K/mm3 Lymph # (Auto) 0.71 L (1.32-3.57) K/mm3 [place] # (Auto) 0.69 (0.30-0.82) K/mm3 Eos # (Auto) 0.00 L (0.04-0.54) K/mm3 Baso # (Auto) 0.01 (0.01-0.08) K/mm3 Manual Slide Review Abnormal smear Sodium 139 (136-145) mEq/L Potassium 4.1 (3.5-5.1) mEq/L Chloride 105 (98-107) mEq/L Carbon Dioxide 23 (21-32) mEq/L Anion Gap 15.1 H (5-15) BUN 16 (7-18) mg/dL Creatinine 0.8 (0.7-1.3) mg/dL Est Cr Clr Drug Dosing 113.17 mL/min Estimated GFR (MDRD) > 60 (>60) mL/min BUN/Creatinine Ratio 20.0 H (14-18) Glucose 141 H (74-106) mg/dL Calcium 8.9 (8.5-10.1) mg/dL C-Reactive Protein < 0.2 (<1.0) mg/dL Med Orders - Current: Current Medications Acetaminophen (Tylenol) 650 mg PO Q4H PRN PRN Reason: Pain (Mild 1-3)/fever Albuterol/Ipratropium (Duoneb 3.0-0.5 Mg/3 Ml) 3 ml NEB Q6HRRT [facility] Last Admin: 05/09/17 08:41 Dose: 3 ml Docusate Sodium (Colace) 100 mg PO BID PRN PRN Reason: Constipation Guaifenesin (Mucinex) 1,200 mg PO BID [facility] Last Admin: 05/09/17 08:16 Dose: 1,200 mg Hydralazine HCl (Apresoline) 20 mg IVPUSH Q4H PRN PRN Reason: Hypertension Ceftriaxone Sodium 1 gm/ (Sodium Chloride) 100 mls @ 200 mls/hr IV Q24H [facility] Last Admin: 05/08/17 10:19 Dose: 200 mls/hr Lorazepam (Ativan) 1 mg IVPUSH Q6H PRN; Protocol PRN Reason: Anxiety Magnesium Hydroxide (Milk Of Magnesia) 30 ml PO Q12H PRN PRN Reason: Constipation Methylprednisolone Sodium Succinate (Solu-Medrol) 80 mg IVPUSH Q8H [facility] Metoprolol Tartrate (Lopressor) 5 mg IVPUSH Q4H PRN PRN Reason: Tachycardia Miscellaneous Information (Remove Patch) 0 ea TRDERM DAILY [facility] Last Admin: 05/09/17 08:16 Dose: 1 ea Mometasone Furoate/Formoterol Fumar (Dulera 200-5 Mcg) 2 puff IH BID [facility] Last Admin: 05/09/17 08:42 Dose: 2 puff Morphine Sulfate (Morphine) 0.5 mg IVPUSH Q2H PRN PRN Reason: Dyspnea Nicotine (Habitrol) 21 mg TRDERM DAILY [facility] Last Admin: 05/09/17 08:15 Dose: 21 mg Ondansetron HCl (Zofran) 4 mg IV Q4H PRN PRN Reason: Nausea/Vomiting Ondansetron HCl (Zofran Odt) 4 mg PO Q4H PRN PRN Reason: nausea, able to take PO Potassium Chloride (Klor-Con M20) 40 meq PO BID [facility] Last Admin: 05/09/17 08:15 Dose: 40 meq Temazepam (Restoril) 15 mg PO BEDTIME PRN PRN Reason: Sleep Tiotropium [place] (Spiriva Handihaler) 18 mcg INH DAILY [facility] Last Admin: 05/09/17 08:41 Dose: 1 puff Discontinued Medications Albuterol (Proventil Neb Soln) 2.5 mg NEB ONETIME ONE Stop: 05/05/17 11:02 Last Admin: 05/05/17 11:05 Dose: 2.5 mg Albuterol/Ipratropium (Duoneb 3.0-0.5 Mg/3 Ml) 3 ml NEB ONETIME ONE Stop: 05/05/17 09:20 Last Admin: 05/05/17 09:36 Dose: 3 ml Albuterol/Ipratropium (Duoneb 3.0-0.5 Mg/3 Ml) 3 ml NEB Q4H PRN PRN Reason: Shortness Of Breath/wheezing Last Admin: 05/06/17 02:20 Dose: 3 ml Azithromycin (Zithromax) 500 mg PO DAILY [facility] Stop: 05/07/17 09:01 Last Admin: 05/07/17 09:40 Dose: 500 mg Sodium Chloride (Normal Saline) 100 mls @ 65 mls/hr IV ASDIRECTED [facility] Stop: 05/06/17 13:00 Last Admin: 05/06/17 11:22 Dose: 65 mls/hr Ceftriaxone Sodium 1 gm/ (Sodium Chloride) 100 mls @ 200 mls/hr IV Q24H [facility] Last Admin: 05/06/17 12:30 Dose: Not Given Sodium Chloride (Normal Saline) 100 mls @ 80 mls/hr IV ASDIRECTED [facility] Stop: 05/06/17 13:00 Last Admin: 05/06/17 11:29 Dose: 80 mls/hr Magnesium Sulfate/Dextrose 1 (gm/ Premix) 100 mls @ 100 mls/hr IV ONETIME ONE Stop: 05/07/17 14:02 Last Admin: 05/07/17 14:21 Dose: 100 mls/hr Iopamidol (Isovue-370 (76%)) 100 ml IVPUSH ONETIME ONE Stop: 05/06/17 10:08 Last Admin: 05/06/17 11:22 Dose: 100 ml Iopamidol (Isovue-370 (76%)) 100 ml IVPUSH ONETIME ONE Stop: 05/06/17 10:49 Last Admin: 05/06/17 11:22 Dose: 100 ml Magnesium Sulfate (Pharmacy To Dose - Magnesium Replacement) 1 dose .XX ASDIRECTED [facility] Methylprednisolone Sodium Succinate (Solu-Medrol) 60 mg IVPUSH ONETIME ONE Stop: 05/05/17 17:01 Last Admin: 05/05/17 17:46 Dose: 60 mg Methylprednisolone Sodium Succinate (Solu-Medrol) 60 mg IVPUSH ONETIME ONE Stop: 05/06/17 00:00 Last Admin: 05/06/17 00:08 Dose: 60 mg Methylprednisolone Sodium Succinate (Solu-Medrol) 40 mg IVPUSH Q12H [facility] Last Admin: 05/06/17 11:28 Dose: 40 mg Methylprednisolone Sodium Succinate (Solu-Medrol) 125 mg IVPUSH DAILY [facility] Last Admin: 05/07/17 09:44 Dose: 125 mg Methylprednisolone Sodium Succinate (Solu-Medrol) 125 mg IVPUSH Q6H [facility] Last Admin: 05/09/17 10:45 Dose: Not Given Potassium Chloride (Pharmacy To Dose - Potassium Replacement) 1 dose .XX ASDIRECTED [facility] Prednisone (Prednisone) 60 mg PO ONETIME STA Stop: 05/05/17 09:20 Last Admin: 05/05/17 09:30 Dose: 60 mg Prednisone (Prednisone) 60 mg PO TID [facility] Stop: 05/06/17 09:01 Prednisone (Prednisone) 60 mg PO ONETIME ONE Stop: 05/06/17 08:01 Last Admin: 05/06/17 08:23 Dose: 60 mg Prednisone (Prednisone) 40 mg PO TID [facility] Fluticasone/Salmeterol (Advair Diskus 250-50) 1 puff INH BID [facility] Last Admin: 05/07/17 08:05 Dose: Not Given Sodium Chloride (Saline Flush) 10 ml FLUSH ONETIME PRN PRN Reason: IV FLUSH Stop: 05/06/17 13:00 Last Admin: 05/06/17 11:22 Dose: 10 ml Temazepam (Restoril) 7.5 mg PO BEDTIME PRN PRN Reason: Sleep - Exam Quality Assessment: DVT Prophylaxis General: Alert, Oriented, Cooperative, No Acute Distress HEENT: Pupils Equal, Pupils Reactive, EOMI Neck: Supple, Trachea Midline Lungs: Normal Respiratory Effort Cardiovascular: Regular Rate, Regular Rhythm GI/Abdominal Exam: Normal Bowel Sounds, Soft, Non-Tender, No Distention (Male) Exam: Deferred Back Exam: Normal Inspection Extremities: Normal Inspection Skin: Warm Neurological: No New Focal Deficit Psy/Mental Status: Alert, Normal Affect, Normal Mood - Problem List & Annotations (1) COPD exacerbation SNOMED Code(s): 330932341, 781198653 Code(s): J44.1 - CHRONIC OBSTRUCTIVE PULMONARY DISEASE W (ACUTE) EXACERBATION Status: Acute Current Visit: Yes (2) Cough SNOMED Code(s): 44887162 Code(s): R05 - COUGH Status: Acute Priority: Medium Current Visit: Yes (3) Hypoxemia SNOMED Code(s): 503336428 Code(s): R09.02 - HYPOXEMIA Status: Acute Priority: High Current Visit : Yes (4) Reactive airway disease with wheezing SNOMED Code(s): 207245778704 Code(s): J45.909 - UNSPECIFIED ASTHMA, UNCOMPLICATED Status: Acute Priority: High Current Visit: Yes Qualifiers: Asthma severity: unspecified severity Asthma complication type: with acute exacerbation Qualified Code(s): J45.901 - Unspecified asthma with (acute) exacerbation (5) Tobacco abuse disorder SNOMED Code(s): 498945548, 790899899 Code(s): Z72.0 - TOBACCO USE Status: Chronic Priority: High Current Visit: Yes (6) Acute exacerbation of COPD with asthma SNOMED Code(s): 680895832 Code(s): J44.1 - CHRONIC OBSTRUCTIVE PULMONARY DISEASE W (ACUTE) EXACERBATION ; J45.901 - UNSPECIFIED ASTHMA WITH (ACUTE) EXACERBATION Status: Acute Current Visit: No - Problem List Review Problem List Initiated/Reviewed/Updated: Yes - My Orders Last 24 Hours: My Active Orders 05/09/17 10:45 methylPREDNISolone Sod Succ [Solu-MEDROL] 80 mg IVPUSH Q8H - Plan Plan:: Patient seen and examined at bedside. He feels much better. Currently, denies any acute issues. Please see treatment above. May possible discharged in AM. He would need a PFT for formal diagnosis of COPD. I/P Acute: Reactive airway disease: - CXR suggestive of emphysematous change - Prior ED visit with similar symptoms (02/19/16) - 40+ year 1-2 ppd smoker - Normal WBC - No fever - Unremarkable EKG - D-dimer/troponin negative - Improvement with Duo-neb/albuterol, will continue with PRN therapy - RT consult - Continue O2 via [place] with goal of weaning off O2. - Strongly advised to have outpatient PFT. - Discussed case with Dr. Sauceda, hospitalist. He advised to continue steroid taper with first dose given in ED at 60mg. Continue TID while decreasing to 40mg after 3 doses, 20mg TID, and so on. Started Solumedrol 125 mg IV QID, slow taper is needed. - Azithromycin abx started - Rocephin added (05/06/17) - Will monitor magnesium and potassium. - Cough and wheezing in left lung [place]- Ordered mucinex - Questioning cardiac component - ordered echo and CTA - CRP <0.2 Elevated bilirubin - 1.6 - LFTs not elevated - Will have follow-up with PCP for possible monitoring/treatment if necessary. Chronic: Tobacco use disorder - Nicotine patch as ordered - Will provide tobacco cessation materials; 1-800-Quit Now Plan: Taper IV steroid OT/PT SW/CM for discharge planning GI/DVT prophylaxis Incentive spirometer/acapella Follow-up with pulmonology after discharge Poor dental hygiene - will encourage dental follow-up after visit Routine AM labs as ordered Other orders as indicated above LOS>96 hours for current treatment, DC 05/10/17.
[2017-05-09] MEDS: cefTRIAXone 1 GM in Sodium Chloride 0.9% 100 ML IV SCH (11:10)
[2017-05-10] MEDS: Albuterol/Ipratropium 3.0-0.5 MG/3 ML Neb Soln NEB SCH (03:00)
[2017-05-10] MEDS: methylPREDNISolone Sodium Succinate 125 MG/2 ML SDV IVPUSH SCH (03:24)
--- NOTE | 2017-05-10 08:01 | PCM.DCSUM1 ---
<Bill Andersen - Last Filed: 05/10/17 08:49> Discharge Summary - Hospital Course Free Text/Narrative:: Rob Garcia is a 56 y.o. male pt. who came to the ED reporting SOB over 3-4 days and a chronic dry cough that became productive of clear sputum a few days ago. He has had no fever, chest pain, or other URI symptoms. He was seen in the ED on 02/18/17 for similar symptoms which resolved after treatment in the ED and was subsequently released home. He reports being seen in the [place] walk-in clinic in February and a chest x-ray was taken but was unremarkable. He was prescribed an antibiotic and followed up with Dr. Martines, his PCP, in March. The patient reports a CXR and blood work was done and all were negative. At that time he was prescribed an albuterol MDI (1 puff TID), antibiotic, and 10-day course of oral prednisone. He finished this treatment. Upon arrival to ED today he is mildly dyspneic but is able to communicate freely without much difficulty. He has no complaints of chest pain or any other symptoms. EKG shows NSR with prolonged QT. Labs drawn. WBC 5.57, Hgb 18.1, Hct 52.0, Plt 125, PT 11.4, INR 1.04, D-Dimer 0.19, ABG pH 7.39, ABG pCO2 42.2, ABG pO2 53, ABG HCO3 25.2, ABG O2 saturation 89, ABG base excess 0.6. Anion gap 13.0 , creatinine 0.9, lactic acid 1.0, Bilirubin 1.6, NT-Pro BNP 7.4. Patient was given albuterol and duo-neb via nebulizer as well as 60 mg PO of prednisone. CXR is grossly normal. Per Dr. Tejeda (radiologist) "Emphysematous change. Nothing acute is appreciated. No significant change seen from prior chest x-ray. " He responds well to treatment in ED however his oxygen saturation remained 86-87 % on room air. Placed on O2 via NC at 2L and saturation increases to low 90's. He is subsequently admitted to hospitalist service under Dr. Sauceda for low oxygen saturation. This patient has never had a formal COPD diagnoses and reports never having been given a PFT. His CXR is suggestive of of this, as noted above. The patient is a heavy smoker, having used tobacco for 40+ years. He reports using 1 pack per day, down from 2 packs per day. He denies any other significant medical history and denies any medication use, aside from an occasional NSAID. He responded well to treatment during his stay with us. He was given methylprednisolone and azithromycin. He was started on Spiriva and Dulera, which he will continue on at home. He was weaned off oxygen. His lung sounds have cleared up and the cough has resolved. Discussed importance of smoking cessation and he was given resources to assist him in this. We also discussed importance of dental health, as mouth bacteria can trigger symptoms. He reported he is working on scheduling a dental visit and is considering dentures. He is also scheduled with pulmonology for an initial visit and PFT testing. He is discharged with prescriptions for doxycycline and a steroid taper. He has an albuterol inhaler already. He should follow-up with his PCP, Dr. Martines, within one week. - Discharge Data Discharge Date: 05/10/17 (Admit date: 05/05/17) Discharge Disposition: Home, Self-Care 01 Condition: Good - Discharge Diagnosis/Problem(s) (1) Reactive airway disease with wheezing SNOMED Code(s): 468861366933 ICD Code: J45.909 - UNSPECIFIED ASTHMA, UNCOMPLICATED Status: Resolved Priority: High QualifierTitle: Asthma severity: unspecified severity Asthma complication type: with acute exacerbation Qualified Code(s): J45.901 - Unspecified asthma with (acute) exacerbation (2) Cough SNOMED Code(s): 24028791 ICD Code: R05 - COUGH Status: Resolved Priority: Medium (3) Tobacco abuse disorder SNOMED Code(s): 785127376, 907830697 ICD Code: Z72.0 - TOBACCO USE Status: Chronic Priority: High (4) Hypoxemia SNOMED Code(s): 955846373 ICD Code: R09.02 - HYPOXEMIA Status: Resolved Priority: High - Patient Summary/Data Consults: Consultations 05/05/17 13:42 Consult to Case Management [CONS] Routine Consult to Team Physician [CONS] Routine OT Evaluation and Treatment [CONS] Routine PT Evaluation and Treatment [CONS] Routine Respiratory Care Assess and Treatment [CONS] Routine - Patient Instructions Diet: Usual Diet as Tolerated Activity: As Tolerated Driving: May Drive Today Showering/Bathing: May Shower Notify Provider of: Fever, Increased Pain, Nausea and/or Vomiting (Increasing difficulty breathing. ) - Discharge Plan Prescriptions/Med Rec: Doxycycline [Vibramycin] 100 mg PO BID #10 cap predniSONE [Prednisone] See Taper PO ASDIRECTED 12 Days #30 tab.[email or web address] Home Medications: Home Meds Albuterol [IJD: Ventolin HFA] 2 puff INH Q3H PRN #18 gm 02/19/16 [Rx] Doxycycline [Vibramycin] 100 mg PO BID #10 cap 05/10/17 [Rx] Mometasone/Formoterol [Dulera 200-5 MCG] 2 puff IH BID inhaler 05/10/17 [Rx] Tiotropium [Spiriva HandiHaler] 18 mcg INH DAILY cap 05/10/17 [Rx] predniSONE [Prednisone] See Taper PO ASDIRECTED 12 Days #30 tab.[email or web address] 05/10/17 [ Rx] Patient Handouts: Chronic Obstructive Pulmonary Disease Exacerbation, Easy-to- Read, Smoking Cessation, Tips for Success, [id number], Hypoxemia, Chronic Obstructive Pulmonary Disease, [id number] Referrals: Thompson Martines Jr, MD [Primary Care Provider] - 05/16/17 9:00 am - Discharge Summary/Plan Comment DC Time >30 min.: Yes (40) - General Info Date of Service: 05/10/17 Admission Dx/Problem (Free Text: Admission Diagnosis/Problem Admission Diagnosis/Problem COPD, Moderate chronic obstructive pulmonary disease Functional Status: Reports: Pain Controlled (None ), Tolerating Diet, Ambulating , Urinating, Incentive Spirometry. Denies: New Symptoms - Review of Systems General: Reports: No Symptoms HEENT: Reports: No Symptoms Pulmonary: Reports: No Symptoms Cardiovascular: Reports: No Symptoms Gastrointestinal: Reports: No Symptoms Genitourinary: Reports: No Symptoms Musculoskeletal: Reports: No Symptoms Skin: Reports: Bruising (Mild to bilateral arms ). Denies: Cyanosis, Jaundice, Mottled Neurological: Reports: No Symptoms Psychiatric: Reports: No Symptoms - Patient Data Vitals - Most Recent: Last Vital Signs Temp 98.1 F 05/10/17 03:22 Pulse 83 05/10/17 03:22 Resp 12 05/10/17 03:22 BP 127/93 H 05/10/17 03:22 Pulse Ox 91 L 05/10/17 03:22 Weight - Most Recent: 79.923 kg I&O - Last 24 hours: Intake & Output 05/09/17 05/10/17 05/10/17 22:59 06:59 14:59 Intake Total 1280 800 Output Total 650 Balance 630 800 Lab Results - Last 24 hrs: Laboratory Results - last 24 hr 05/10/17 Range/Units 05:35 C-Reactive Protein < 0.2 (<1.0) mg/dL Med Orders - Current: Current Medications Acetaminophen (Tylenol) 650 mg PO Q4H PRN PRN Reason: Pain (Mild 1-3)/fever Albuterol/Ipratropium (Duoneb 3.0-0.5 Mg/3 Ml) 3 ml NEB Q6HRRT [facility] Last Admin: 05/10/17 03:00 Dose: 3 ml Docusate Sodium (Colace) 100 mg PO BID PRN PRN Reason: Constipation Guaifenesin (Mucinex) 1,200 mg PO BID [facility] Last Admin: 05/09/17 21:20 Dose: 1,200 mg Hydralazine HCl (Apresoline) 20 mg IVPUSH Q4H PRN PRN Reason: Hypertension Ceftriaxone Sodium 1 gm/ (Sodium Chloride) 100 mls @ 200 mls/hr IV Q24H [facility] Last Admin: 05/09/17 11:10 Dose: 200 mls/hr Lorazepam (Ativan) 1 mg IVPUSH Q6H PRN; Protocol PRN Reason: Anxiety Magnesium Hydroxide (Milk Of Magnesia) 30 ml PO Q12H PRN PRN Reason: Constipation Methylprednisolone Sodium Succinate (Solu-Medrol) 80 mg IVPUSH Q8H [facility] Last Admin: 05/10/17 03:24 Dose: 80 mg Metoprolol Tartrate (Lopressor) 5 mg IVPUSH Q4H PRN PRN Reason: Tachycardia Miscellaneous Information (Remove Patch) 0 ea TRDERM DAILY [facility] Last Admin: 05/09/17 08:16 Dose: 1 ea Mometasone Furoate/Formoterol Fumar (Dulera 200-5 Mcg) 2 puff IH BID [facility] Last Admin: 05/09/17 20:38 Dose: 2 puff Morphine Sulfate (Morphine) 0.5 mg IVPUSH Q2H PRN PRN Reason: Dyspnea Nicotine (Habitrol) 21 mg TRDERM DAILY [facility] Last Admin: 05/09/17 08:15 Dose: 21 mg Ondansetron HCl (Zofran) 4 mg IV Q4H PRN PRN Reason: Nausea/Vomiting Ondansetron HCl (Zofran Odt) 4 mg PO Q4H PRN PRN Reason: nausea, able to take PO Potassium Chloride (Klor-Con M20) 40 meq PO BID [facility] Last Admin: 05/09/17 21:20 Dose: 40 meq Temazepam (Restoril) 15 mg PO BEDTIME PRN PRN Reason: Sleep Tiotropium [place] (Spiriva Handihaler) 18 mcg INH DAILY [facility] Last Admin: 05/09/17 08:41 Dose: 1 puff Discontinued Medications Albuterol (Proventil Neb Soln) 2.5 mg NEB ONETIME ONE Stop: 05/05/17 11:02 Last Admin: 05/05/17 11:05 Dose: 2.5 mg Albuterol/Ipratropium (Duoneb 3.0-0.5 Mg/3 Ml) 3 ml NEB ONETIME ONE Stop: 05/05/17 09:20 Last Admin: 05/05/17 09:36 Dose: 3 ml Albuterol/Ipratropium (Duoneb 3.0-0.5 Mg/3 Ml) 3 ml NEB Q4H PRN PRN Reason: Shortness Of Breath/wheezing Last Admin: 05/06/17 02:20 Dose: 3 ml Azithromycin (Zithromax) 500 mg PO DAILY [facility] Stop: 05/07/17 09:01 Last Admin: 05/07/17 09:40 Dose: 500 mg Sodium Chloride (Normal Saline) 100 mls @ 65 mls/hr IV ASDIRECTED [facility] Stop: 05/06/17 13:00 Last Admin: 05/06/17 11:22 Dose: 65 mls/hr Ceftriaxone Sodium 1 gm/ (Sodium Chloride) 100 mls @ 200 mls/hr IV Q24H [facility] Last Admin: 05/06/17 12:30 Dose: Not Given Sodium Chloride (Normal Saline) 100 mls @ 80 mls/hr IV ASDIRECTED [facility] Stop: 05/06/17 13:00 Last Admin: 05/06/17 11:29 Dose: 80 mls/hr Magnesium Sulfate/Dextrose 1 (gm/ Premix) 100 mls @ 100 mls/hr IV ONETIME ONE Stop: 05/07/17 14:02 Last Admin: 05/07/17 14:21 Dose: 100 mls/hr Iopamidol (Isovue-370 (76%)) 100 ml IVPUSH ONETIME ONE Stop: 05/06/17 10:08 Last Admin: 05/06/17 11:22 Dose: 100 ml Iopamidol (Isovue-370 (76%)) 100 ml IVPUSH ONETIME ONE Stop: 05/06/17 10:49 Last Admin: 05/06/17 11:22 Dose: 100 ml Magnesium Sulfate (Pharmacy To Dose - Magnesium Replacement) 1 dose .XX ASDIRECTED [facility] Methylprednisolone Sodium Succinate (Solu-Medrol) 60 mg IVPUSH ONETIME ONE Stop: 05/05/17 17:01 Last Admin: 05/05/17 17:46 Dose: 60 mg Methylprednisolone Sodium Succinate (Solu-Medrol) 60 mg IVPUSH ONETIME ONE Stop: 05/06/17 00:00 Last Admin: 05/06/17 00:08 Dose: 60 mg Methylprednisolone Sodium Succinate (Solu-Medrol) 40 mg IVPUSH Q12H [facility] Last Admin: 05/06/17 11:28 Dose: 40 mg Methylprednisolone Sodium Succinate (Solu-Medrol) 125 mg IVPUSH DAILY [facility] Last Admin: 05/07/17 09:44 Dose: 125 mg Methylprednisolone Sodium Succinate (Solu-Medrol) 125 mg IVPUSH Q6H [facility] Last Admin: 05/09/17 10:45 Dose: Not Given Potassium Chloride (Pharmacy To Dose - Potassium Replacement) 1 dose .XX ASDIRECTED [facility] Prednisone (Prednisone) 60 mg PO ONETIME STA Stop: 05/05/17 09:20 Last Admin: 05/05/17 09:30 Dose: 60 mg Prednisone (Prednisone) 60 mg PO TID [facility] Stop: 05/06/17 09:01 Prednisone (Prednisone) 60 mg PO ONETIME ONE Stop: 05/06/17 08:01 Last Admin: 05/06/17 08:23 Dose: 60 mg Prednisone (Prednisone) 40 mg PO TID [facility] Fluticasone/Salmeterol (Advair Diskus 250-50) 1 puff INH BID [facility] Last Admin: 05/07/17 08:05 Dose: Not Given Sodium Chloride (Saline Flush) 10 ml FLUSH ONETIME PRN PRN Reason: IV FLUSH Stop: 05/06/17 13:00 Last Admin: 05/06/17 11:22 Dose: 10 ml Temazepam (Restoril) 7.5 mg PO BEDTIME PRN PRN Reason: Sleep - Exam Quality Assessment: Reports: DVT Prophylaxis. Denies: Supplemental Oxygen, Skin Breakdown General: Reports: Alert, Oriented, Cooperative HEENT: Reports: Pupils Equal, Pupils Reactive, Mucous Membr. Moist/[place] Neck: Reports: Supple, Trachea Midline, No JVD Lungs: Reports: Clear to Auscultation, Normal Respiratory Effort. Denies: Crackles, Rales, Rhonchi, Wheezing Cardiovascular: Reports: Regular Rate, Regular Rhythm, No Murmurs GI/Abdominal Exam: Normal Bowel Sounds, Soft, Non-Tender, No Organomegaly, No Distention, No Abnormal Bruit, No Mass (Male) Exam: Deferred Rectal (Males) Exam: Deferred Back Exam: Reports: Normal Inspection, Full Range of Motion Extremities: Normal Range of Motion, Non-Tender, No Pedal Edema, Normal Capillary Refill, Other (Mild ecchymosis to bilateral arms) Skin: Reports: Warm, Dry, Intact Neurological: Reports: No New Focal Deficit, Normal Gait, Normal Speech, Normal Tone Psy/Mental Status: Reports: Alert, Normal Affect, Normal Mood *Q Meaningful Use (DIS) - VTE *Q VTE Criteria *Q: - Stroke *Q Stroke Criteria *Q: - AMI *Q AMI Criteria *Q: <Corine Ingram - Last Filed: 05/10/17 13:28> Discharge Summary - Hospital Course Free Text/Narrative:: Slow improvement, but rapid response to IV steroids. Prolong taper with prednisone at DC; has been encouraged not to smoke. - Discharge Diagnosis/Problem(s) (1) COPD exacerbation SNOMED Code(s): 541937731, 014022955 ICD Code: J44.1 - CHRONIC OBSTRUCTIVE PULMONARY DISEASE W (ACUTE) EXACERBATION Status: Acute (2) Cough SNOMED Code(s): 29461740 ICD Code: R05 - COUGH Status: Resolved Priority: Medium (3) Hypoxemia SNOMED Code(s): 118470626 ICD Code: R09.02 - HYPOXEMIA Status: Resolved Priority: High (4) Reactive airway disease with wheezing SNOMED Code(s): 158804859773 ICD Code: J45.909 - UNSPECIFIED ASTHMA, UNCOMPLICATED Status: Resolved Priority: High Qualifiers: Asthma severity: unspecified severity Asthma complication type: with acute exacerbation Qualified Code(s): J45.901 - Unspecified asthma with (acute) exacerbation (5) Tobacco abuse disorder SNOMED Code(s): 391747065, 523082178 ICD Code: Z72.0 - TOBACCO USE Status: Chronic Priority: High (6) Acute exacerbation of COPD with asthma SNOMED Code(s): 075539820 ICD Code: J44.1 - CHRONIC OBSTRUCTIVE PULMONARY DISEASE W (ACUTE) EXACERBATION; J45.901 - UNSPECIFIED ASTHMA WITH (ACUTE) EXACERBATION Status: Acute - Patient Summary/Data Consults: Consultations 05/05/17 13:42 Consult to Case Management [CONS] Routine Consult to Team Physician [CONS] Routine OT Evaluation and Treatment [CONS] Routine PT Evaluation and Treatment [CONS] Routine Respiratory Care Assess and Treatment [CONS] Routine - Patient Data Vitals - Most Recent: Last Vital Signs Temp 36.3 C 05/10/17 08:05 Pulse 92 05/10/17 08:05 Resp 16 05/10/17 08:05 BP 136/79 05/10/17 08:05 Pulse Ox 92 L 05/10/17 08:05 I&O - Last 24 hours: Intake & Output 05/09/17 05/10/17 05/10/17 22:59 06:59 14:59 Intake Total 1280 800 180 Output Total 650 Balance 630 800 180 Lab Results - Last 24 hrs: Laboratory Results - last 24 hr 05/10/17 Range/Units 05:35 C-Reactive Protein < 0.2 (<1.0) mg/dL Med Orders - Current: Current Medications Discontinued Medications Acetaminophen (Tylenol) 650 mg PO Q4H PRN PRN Reason: Pain (Mild 1-3)/fever Albuterol (Proventil Neb Soln) 2.5 mg NEB ONETIME ONE Stop: 05/05/17 11:02 Last Admin: 05/05/17 11:05 Dose: 2.5 mg Albuterol/Ipratropium (Duoneb 3.0-0.5 Mg/3 Ml) 3 ml NEB ONETIME ONE Stop: 05/05/17 09:20 Last Admin: 05/05/17 09:36 Dose: 3 ml Albuterol/Ipratropium (Duoneb 3.0-0.5 Mg/3 Ml) 3 ml NEB Q4H PRN PRN Reason: Shortness Of Breath/wheezing Last Admin: 05/06/17 02:20 Dose: 3 ml Albuterol/Ipratropium (Duoneb 3.0-0.5 Mg/3 Ml) 3 ml NEB Q6HRRT [facility] Last Admin: 05/10/17 03:00 Dose: 3 ml Azithromycin (Zithromax) 500 mg PO DAILY [facility] Stop: 05/07/17 09:01 Last Admin: 05/07/17 09:40 Dose: 500 mg Docusate Sodium (Colace) 100 mg PO BID PRN PRN Reason: Constipation Guaifenesin (Mucinex) 1,200 mg PO BID [facility] Last Admin: 05/10/17 08:15 Dose: 1,200 mg Hydralazine HCl (Apresoline) 20 mg IVPUSH Q4H PRN PRN Reason: Hypertension Sodium Chloride (Normal Saline) 100 mls @ 65 mls/hr IV ASDIRECTED [facility] Stop: 05/06/17 13:00 Last Admin: 05/06/17 11:22 Dose: 65 mls/hr Ceftriaxone Sodium 1 gm/ (Sodium Chloride) 100 mls @ 200 mls/hr IV Q24H [facility] Last Admin: 05/06/17 12:30 Dose: Not Given Sodium Chloride (Normal Saline) 100 mls @ 80 mls/hr IV ASDIRECTED [facility] Stop: 05/06/17 13:00 Last Admin: 05/06/17 11:29 Dose: 80 mls/hr Ceftriaxone Sodium 1 gm/ (Sodium Chloride) 100 mls @ 200 mls/hr IV Q24H [facility] Last Admin: 05/09/17 11:10 Dose: 200 mls/hr Magnesium Sulfate/Dextrose 1 (gm/ Premix) 100 mls @ 100 mls/hr IV ONETIME ONE Stop: 05/07/17 14:02 Last Admin: 05/07/17 14:21 Dose: 100 mls/hr Iopamidol (Isovue-370 (76%)) 100 ml IVPUSH ONETIME ONE Stop: 05/06/17 10:08 Last Admin: 05/06/17 11:22 Dose: 100 ml Iopamidol (Isovue-370 (76%)) 100 ml IVPUSH ONETIME ONE Stop: 05/06/17 10:49 Last Admin: 05/06/17 11:22 Dose: 100 ml Lorazepam (Ativan) 1 mg IVPUSH Q6H PRN; Protocol PRN Reason: Anxiety Magnesium Hydroxide (Milk Of Magnesia) 30 ml PO Q12H PRN PRN Reason: Constipation Magnesium Sulfate (Pharmacy To Dose - Magnesium Replacement) 1 dose .XX ASDIRECTED [facility] Methylprednisolone Sodium Succinate (Solu-Medrol) 60 mg IVPUSH ONETIME ONE Stop: 05/05/17 17:01 Last Admin: 05/05/17 17:46 Dose: 60 mg Methylprednisolone Sodium Succinate (Solu-Medrol) 60 mg IVPUSH ONETIME ONE Stop: 05/06/17 00:00 Last Admin: 05/06/17 00:08 Dose: 60 mg Methylprednisolone Sodium Succinate (Solu-Medrol) 40 mg IVPUSH Q12H [facility] Last Admin: 05/06/17 11:28 Dose: 40 mg Methylprednisolone Sodium Succinate (Solu-Medrol) 125 mg IVPUSH DAILY [facility] Last Admin: 05/07/17 09:44 Dose: 125 mg Methylprednisolone Sodium Succinate (Solu-Medrol) 125 mg IVPUSH Q6H [facility] Last Admin: 05/09/17 10:45 Dose: Not Given Methylprednisolone Sodium Succinate (Solu-Medrol) 80 mg IVPUSH Q8H [facility] Last Admin: 05/10/17 03:24 Dose: 80 mg Metoprolol Tartrate (Lopressor) 5 mg IVPUSH Q4H PRN PRN Reason: Tachycardia Miscellaneous Information (Remove Patch) 0 ea TRDERM DAILY [facility] Last Admin: 05/10/17 08:16 Dose: 1 ea Mometasone Furoate/Formoterol Fumar (Dulera 200-5 Mcg) 2 puff IH BID [facility] Last Admin: 05/09/17 20:38 Dose: 2 puff Morphine Sulfate (Morphine) 0.5 mg IVPUSH Q2H PRN PRN Reason: Dyspnea Nicotine (Habitrol) 21 mg TRDERM DAILY [facility] Last Admin: 05/10/17 08:15 Dose: 21 mg Ondansetron HCl (Zofran) 4 mg IV Q4H PRN PRN Reason: Nausea/Vomiting Ondansetron HCl (Zofran Odt) 4 mg PO Q4H PRN PRN Reason: nausea, able to take PO Potassium Chloride (Pharmacy To Dose - Potassium Replacement) 1 dose .XX ASDIRECTED [facility] Potassium Chloride (Klor-Con M20) 40 meq PO BID [facility] Last Admin: 05/10/17 08:15 Dose: 40 meq Prednisone (Prednisone) 60 mg PO ONETIME STA Stop: 05/05/17 09:20 Last Admin: 05/05/17 09:30 Dose: 60 mg Prednisone (Prednisone) 60 mg PO TID [facility] Stop: 05/06/17 09:01 Prednisone (Prednisone) 60 mg PO ONETIME ONE Stop: 05/06/17 08:01 Last Admin: 05/06/17 08:23 Dose: 60 mg Prednisone (Prednisone) 40 mg PO TID [facility] Fluticasone/Salmeterol (Advair Diskus 250-50) 1 puff INH BID [facility] Last Admin: 05/07/17 08:05 Dose: Not Given Sodium Chloride (Saline Flush) 10 ml FLUSH ONETIME PRN PRN Reason: IV FLUSH Stop: 05/06/17 13:00 Last Admin: 05/06/17 11:22 Dose: 10 ml Temazepam (Restoril) 7.5 mg PO BEDTIME PRN PRN Reason: Sleep Temazepam (Restoril) 15 mg PO BEDTIME PRN PRN Reason: Sleep Tiotropium [place] (Spiriva Handihaler) 18 mcg INH DAILY [facility] Last Admin: 05/09/17 08:41 Dose: 1 puff *Q Meaningful Use (DIS) - VTE *Q VTE Criteria *Q: - Stroke *Q Stroke Criteria *Q: - AMI *Q AMI Criteria *Q:
[2017-05-10 08:13] VITALS: BP 136/79
[2017-05-10] MEDS: Nicotine 21 MG/24 Hr Patch TRDERM SCH (08:15)
[2017-05-10] MEDS: guaiFENesin 600 MG Tab.ER PO SCH (08:15)
[2017-05-10] MEDS: Potassium Chloride 20 MEQ Tab.ER PO SCH (08:15)
== END 2017-05-10 10:37 | disposition home or self-care (01) | DRG 140 ==
LOC: JD.ED 08:53 → JD.MS 12:19
PROVIDERS: ADMIT Internal Medicine; ATTEND Internal Medicine
PROC: B24BZZZ Ultrasonography of Heart with Aorta (ICD-10-PCS; principal; 2017-05-06)
DX: J44.1 Chronic obstructive pulmonary disease with (acute) exacerbation (principal); R05 Cough; F17.210 Nicotine dependence, cigarettes, uncomplicated; R09.02 Hypoxemia; Z79.51 Long term (current) use of inhaled steroids; Z79.899 Other long term (current) drug therapy
CPT/HCPCS: 36415; 36600; 71020; 71020-26; 71275; 71275-26; 80048; 80053; 80061; 82803; 83036; 83605; 83735; 83880; 84132; 84484; 85025; 85379; 85610; 85730; 86140; 86738; 87040; 87486; 87581; 87633; 87798; 87899; 93005; 93306; 94640; 94640-76; 94664; 94667; 94668; 94760; 94761; 94762; 97162-GP; 97165-GO; 99285; 99285-25; A9270; A9270-GY; J0696; J2920; J2930; J3475; J7030; J7050; Q9967

== ENCOUNTER 2017-09-19 07:13 | Emergency (ER) | payer BC ==
[2017-09-19] MEDS ORDERED: Sodium Chloride 0.9% 10 ML Syringe FLUSH PRN (07:40)
[2017-09-19] MEDS ORDERED: Albuterol/Ipratropium 3.0-0.5 MG/3 ML Neb Soln NEB ONE ×2 (07:40→08:33)
[2017-09-19] MEDS ORDERED: methylPREDNISolone Sodium Succinate 125 MG/2 ML SDV IVPUSH ONE (07:41)
--- NOTE | 2017-09-19 07:57 | EDM.PDOC ---
ED HPI GENERAL MEDICAL PROBLEM - General Chief Complaint: Respiratory Problem Stated Complaint: SOB Time Seen by Provider: 09/19/17 07:35 Source of Information: Reports: Patient History Limitations: Reports: No Limitations - History of Present Illness INITIAL COMMENTS - FREE TEXT/NARRATIVE: The patient presents with shortness of breath and chest tightness. This started this morning. He has a slight cough. He has no fever or chills. He has no abdominal pain, nausea, or vomiting. He has a history of COPD. He quit smoking for awhile but started up again. He was hospitalized earlier in the year for this. Onset: Sudden Duration: Hour(s): Location: Reports: Chest Quality: Reports: Other (Tightness) Severity: Moderate Improves with: Reports: None Worsens with: Reports: None Associated Symptoms: Reports: Chest Pain, Cough, cough w sputum, Shortness of Breath. Denies: Fever/Chills, Nausea/Vomiting - Related Data Allergies Allergy/AdvReac Type Severity Reaction Status Date / Time No Known Allergies Allergy Verified 09/19/17 07:23 Home Meds: Home Meds Albuterol [IJD: Ventolin HFA] 2 puff INH Q3H PRN #18 gm 02/19/16 [Rx] Mometasone/Formoterol [Dulera 200-5 MCG] 2 puff IH BID inhaler 05/10/17 [Rx] Tiotropium [Spiriva HandiHaler] 18 mcg INH DAILY cap 05/10/17 [Rx] Azithromycin [IJD: Azithromycin] 250 mg PO DAILY #6 tab 09/19/17 [Rx] Prednisone [IJD: predniSONE] 40 mg PO WITHBREAKFAST #10 tab 09/19/17 [Rx] Umeclidinium Brm/Vilanterol Tr [Anoro Ellipta 62.5-25 Mcg INH] 1 each IH BID [History] Past Medical History - Past Health History Medical/Surgical History: Denies Medical/Surgical History Cardiovascular History: Reports: SOB on Exertion Respiratory History: Reports: COPD, SOB Musculoskeletal History: Reports: Arthritis, Back Pain, Chronic - Past Surgical History HEENT Surgical History: Reports: Oral Surgery, Other (See Below) Other HEENT Surgeries/Procedures: 2007 Cardiovascular Surgical History: Reports: None Respiratory Surgical History: Reports: None GI Surgical History: Reports: Hernia, Inguinal Social & Family History - Family History Family Medical History: Noncontributory HEENT: Reports: None Cardiac: Reports: Heart Failure, Heart Murmur, Pacemaker, Other (See Below) Other Cardiac Family History: mother/father Neurological: Reports: Parkinson's, Other (See Below) Other Neurological Family History: father Oncologic: Reports: Prostate, Other (See Below) Other Oncologic Family History: father - Tobacco Use Smoking Status *Q: Current Every Day Smoker Years of Tobacco use: 40 Packs/Tins Daily: 1 Used Tobacco, but Quit: No Second Hand Smoke Exposure: Yes - Caffeine Use Caffeine Use: Reports: None - Alcohol Use Days Per Week of Alcohol Use: 7 Number of Drinks Per Day: 2 Total Drinks Per Week: 14 - Recreational Drug Use Recreational Drug Use: No - Living Situation & Occupation Living situation: Reports: , Alone 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) ED ROS GENERAL - Review of Systems Review Of Systems: See Below Constitutional: Reports: No Symptoms HEENT: Reports: No Symptoms Respiratory: Reports: Shortness of Breath, Wheezing, Cough Cardiovascular: Reports: Chest Pain Endocrine: Reports: No Symptoms GI/Abdominal: Reports: No Symptoms : Reports: No Symptoms Musculoskeletal: Reports: No Symptoms ED EXAM, GENERAL - Physical Exam Exam: See Below Exam Limited By: No Limitations General Appearance: Alert, No Apparent Distress Ears: Normal External Exam Nose: Normal Inspection Head: Atraumatic, Normocephalic Neck: Normal Inspection Respiratory/Chest: No Respiratory Distress, Decreased Breath Sounds, Wheezing Cardiovascular: Regular Rate, Rhythm, No Edema, No Murmur GI/Abdominal: Soft, Non-Tender, No Organomegaly, No Mass Back Exam: Normal Inspection Extremities: Normal Inspection Neurological: Alert, Oriented, No Motor/Sensory Deficits EKG INTERPRETATION EKG Date: 09/19/17 Time: 07:26 Rhythm: NSR Rate (Beats/Min): 94 [place]: Normal P-Wave: Present QRS: Normal ST-T: Normal QT: Normal EKG Interpretation Comments: Multiple PVCs and Q waves in the inferior leads Course - Vital Signs Last Recorded V/S: Last Vital Signs Temp 96.3 F 09/19/17 07:19 Pulse 12 L 09/19/17 07:19 Resp 20 09/19/17 07:19 BP 171/116 H 09/19/17 07:19 Pulse Ox 94 L 09/19/17 09:28 - Orders/Labs/Meds Orders: Active Orders 24 hr Category Date Time Status Cardiac Monitoring [RC] . DIRECTED Care 09/19/17 07:40 Active EKG Documentation Completion [RC] STAT Care 09/19/17 07:40 Active Oxygen Therapy [RC] PRN Care 09/19/17 07:40 Active Peripheral IV Care [RC] . DIRECTED Care 09/19/17 07:40 Active RT Aerosol Therapy [RC] ASDIRECTED Care 09/19/17 07:41 Active RT Aerosol Therapy [RC] ASDIRECTED Care 09/19/17 08:33 Active RT Aerosol Therapy [RC] ASDIRECTED Care 09/19/17 09:28 Active Sodium Chloride 0.9% [Saline Flush] Med 09/19/17 07:40 Active 10 ml FLUSH ASDIRECTED PRN Peripheral IV Insertion Adult [OM.PC] Stat Oth 09/19/17 07:40 Ordered Medication Orders Sodium Chloride (Saline Flush) 10 ml FLUSH ASDIRECTED PRN PRN Reason: Keep Vein Open Last Admin: 09/19/17 07:49 Dose: 10 ml Labs: Laboratory Tests 09/19/17 09/19/17 Range/Units 07:21 07:21 WBC 6.96 (4.23-9.07) K/mm3 RBC 5.54 (4.63-6.08) M/mm3 Hgb 17.8 H (13.7-17.5) gm/L Hct 51.5 H (40.1-51.0) % MCV 93.0 H (79.0-92.2) fl MCH 32.1 (25.7-32.2) pg MCHC 34.6 (32.2-35.5) g/dl RDW Std Deviation 44.3 H (35.1-43.9) fL Plt Count 116 L (163-337) K/mm3 MPV 12.0 (9.4-12.3) fl Neut % (Auto) 53.4 (34.0-67.9) % Lymph % (Auto) 22.7 (21.8-53.1) % [place] % (Auto) 10.8 (5.3-12.2) % Eos % (Auto) 12.1 H (0.8-7.0) Baso % (Auto) 0.7 (0.1-1.2) % Neut # (Auto) 3.72 (1.78-5.38) K/mm3 Lymph # (Auto) 1.58 (1.32-3.57) K/mm3 [place] # (Auto) 0.75 (0.30-0.82) K/mm3 Eos # (Auto) 0.84 H (0.04-0.54) K/mm3 Baso # (Auto) 0.05 (0.01-0.08) K/mm3 Sodium 145 (136-145) mEq/L Potassium 3.9 (3.5-5.1) mEq/L Chloride 108 H (98-107) mEq/L Carbon Dioxide 26 (21-32) mEq/L Anion Gap 14.9 (5-15) BUN 7 (7-18) mg/dL Creatinine 1.0 (0.7-1.3) mg/dL Est Cr Clr Drug Dosing 89.46 mL/min Estimated GFR (MDRD) > 60 (>60) mL/min BUN/Creatinine Ratio 7.0 L (14-18) Glucose 100 (74-106) mg/dL Calcium 8.8 (8.5-10.1) mg/dL Total Bilirubin 0.8 (0.2-1.0) mg/dL AST 18 (15-37) U/L ALT 30 (16-63) U/L Alkaline Phosphatase 133 H (46-116) U/L Total Protein 7.5 (6.4-8.2) g/dl Albumin 3.7 (3.4-5.0) g/dl Globulin 3.8 gm/dL Albumin/Globulin Ratio 1.0 (1-2) Meds: Medications Generic Name Dose Route Start Last Admin Trade Name Freq PRN Reason Stop Dose Admin Sodium Chloride 10 ml 09/19/17 07:40 09/19/17 07:49 Saline Flush FLUSH 10 ml ASDIRECTED PRN Administration Keep Vein Open Discontinued Medications Generic Name Dose Route Start Last Admin Trade Name Freq PRN Reason Stop Dose Admin Albuterol 2.5 mg 09/19/17 09:27 09/19/17 09:36 Proventil Neb Soln NEB 09/19/17 09:28 2.5 mg ONETIME ONE Administration Albuterol/Ipratropium 3 ml 09/19/17 07:40 09/19/17 07:51 Duoneb 3.0-0.5 Mg/3 Ml NEB 09/19/17 07:41 3 ml ONETIME ONE Administration Albuterol/Ipratropium 3 ml 09/19/17 08:33 09/19/17 08:46 Duoneb 3.0-0.5 Mg/3 Ml NEB 09/19/17 08:34 3 ml ONETIME ONE Administration Methylprednisolone Sodium Succinate 125 mg 09/19/17 07:41 09/19/17 07:49 Solu-Medrol IVPUSH 09/19/17 07:42 125 mg ONETIME ONE Administration - Re-Assessments/Exams Free Text/Narrative Re-Assessment/Exam: 09/19/17 07:45 I ordered an IV saline lock, oxygen as needed, EKG, CXR, labs, duoneb and solu- medrol 125mg IV. 09/19/17 09:43 His EKG shows a NSR with multiple PVCs and Q waves in the inferior leads. Nothing acute is seen. His CXR shows emphysema. His CBC and CMP look good. He still had some wheezing so I ordered 2 more treatments. I feel he is having a COPD exacerbation. I will get him on some prednisone 40mg daily for 5 days. 09/19/17 10:11 Departure - Departure Time of Disposition: 10:15 Disposition: Home, Self-Care 01 Condition: Good Clinical Impression: COPD exacerbation - Discharge Information Prescriptions: Azithromycin [IJD: Azithromycin] 250 mg PO DAILY #6 tab Prednisone [IJD: predniSONE] 40 mg PO WITHBREAKFAST #10 tab Referrals: Thompson Martines Jr, MD [Primary Care Provider] - 1 Week Forms: ED Department Discharge Additional Instructions: Take your medicine as prescribed. I have added. Prednisone 40mg daily for 5 days. I have also added azithromycin. Please return if you are worse. - My Orders Last 24 Hours: My Active Orders 09/19/17 07:40 Cardiac Monitoring [RC] . DIRECTED EKG Documentation Completion [RC] STAT Oxygen Therapy [RC] PRN Peripheral IV Care [RC] . DIRECTED Sodium Chloride 0.9% [Saline Flush] 10 ml FLUSH ASDIRECTED PRN Peripheral IV Insertion Adult [OM.PC] Stat 09/19/17 07:41 RT Aerosol Therapy [RC] ASDIRECTED 09/19/17 08:33 RT Aerosol Therapy [RC] ASDIRECTED 09/19/17 09:28 RT Aerosol Therapy [RC] ASDIRECTED - Assessment/Plan Last 24 Hours: My Active Orders 09/19/17 07:40 Cardiac Monitoring [RC] . DIRECTED EKG Documentation Completion [RC] STAT Oxygen Therapy [RC] PRN Peripheral IV Care [RC] . DIRECTED Sodium Chloride 0.9% [Saline Flush] 10 ml FLUSH ASDIRECTED PRN Peripheral IV Insertion Adult [OM.PC] Stat 09/19/17 07:41 RT Aerosol Therapy [RC] ASDIRECTED 09/19/17 08:33 RT Aerosol Therapy [RC] ASDIRECTED 09/19/17 09:28 RT Aerosol Therapy [RC] ASDIRECTED
--- NOTE | 2017-09-19 08:42 | CR ---
Chest: Portable view of the chest was obtained. Comparison: Prior chest x-ray of 05/05/[address] of 05/06/17. Heart size and mediastinum are within normal limits. Lungs are hyperinflated compatible with emphysematous change. No acute pulmonary densities are seen. Bony structures are grossly intact. Impression: 1. Emphysematous change. Nothing acute is appreciated on portable chest x-ray. Diagnostic code #2
[2017-09-19] MEDS ORDERED: Albuterol 0.083% 2.5 MG/3 ML Neb Soln NEB ONE (09:27)
[2017-09-19 10:27] VITALS: BP 157/92
== END 2017-09-19 10:25 | disposition home or self-care (01) ==
LOC: JD.ED 07:13
DX: J44.1 Chronic obstructive pulmonary disease with (acute) exacerbation (principal); F17.210 Nicotine dependence, cigarettes, uncomplicated; Z79.899 Other long term (current) drug therapy
CPT/HCPCS: 36415; 71045; 80053; 85025; 93005; 94640; 96374; 99285; J2930; J7050; 93010; 99284-25

== ENCOUNTER 2017-11-13 14:43 | Emergency (ER) | payer BC ==
[2017-11-13 14:51] VITALS: BP 128/92
--- NOTE | 2017-11-13 15:03 | EDM.PDOC ---
ED HPI GENERAL MEDICAL PROBLEM - General Chief Complaint: Respiratory Problem Stated Complaint: SOB Time Seen by Provider: 11/13/17 15:02 - History of Present Illness INITIAL COMMENTS - FREE TEXT/NARRATIVE: 57-year-old male presents emergency room with shortness of breath. Patient has COPD. He is not O2 dependent. He has cut back on his smoking to one or 2 cigarettes a day. Patient is beginning worse over the last week and a half he was seen in the clinic recently finished a Medrol Dosepak and an unknown antibiotic this may have helped for a couple of days and then he started getting worse again the patient was started on Levaquin and a higher dose steroid a month or 2 ago and did much better with that. Patient denies any fevers chills he has no chest pain or chest pressure associated with this he has no leg pain. 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: Reports: Other (see below) Other 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: neb treatment 2 times today Chest Pain Score (Numeric/FACES): 5 - Related Data Allergies Allergy/AdvReac Type Severity Reaction Status Date / Time No Known Allergies Allergy Verified 09/19/17 07:23 Home Meds: Home Meds Umeclidinium Brm/Vilanterol Tr [Anoro Ellipta 62.5-25 Mcg INH] 1 each IH DAILY 09/19/17 [History] Albuterol [IMW: Albuterol] 2.5 mg .XX Q12H PRN #30 ml 11/13/17 [Rx] Albuterol [Proair HFA] 2 puff INH Q4H PRN 11/13/17 [History] Albuterol [Proventil Neb Soln] 2.5 mg INH Q4H PRN 11/13/17 [History] Albuterol/Ipratropium [DuoNeb 3.0-0.5 MG/3 ML] 3 ml .XX Q6H #120 neb 11/13/17 [ Rx] predniSONE [Prednisone] 10 mg PO Q24H #70 tablet 11/13/17 [Rx] Past Medical History - Past Health History Medical/Surgical History: Denies Medical/Surgical History Cardiovascular History: Reports: SOB on Exertion Respiratory History: Reports: COPD, SOB Musculoskeletal History: Reports: Arthritis, Back Pain, Chronic - Past Surgical History HEENT Surgical History: Reports: Oral Surgery, Other (See Below) Other HEENT Surgeries/Procedures: 2007 Cardiovascular Surgical History: Reports: None Respiratory Surgical History: Reports: None GI Surgical History: Reports: Hernia, Inguinal Social & Family History - Family History Family Medical History: Noncontributory HEENT: Reports: None Cardiac: Reports: Heart Failure, Heart Murmur, Pacemaker, Other (See Below) Other Cardiac Family History: mother/father Neurological: Reports: Parkinson's, Other (See Below) Other Neurological Family History: father Oncologic: Reports: Prostate, Other (See Below) Other Oncologic Family History: father - Tobacco Use Smoking Status *Q: Former Smoker Years of Tobacco use: 40 Packs/Tins Daily: 0.1 Used Tobacco, but Quit: No Second Hand Smoke Exposure: Yes - Caffeine Use Caffeine Use: Reports: Coffee, Soda - Alcohol Use Days Per Week of Alcohol Use: 7 Number of Drinks Per Day: 2 Total Drinks Per Week: 14 - Recreational Drug Use Recreational Drug Use: No - Living Situation & Occupation Living situation: Reports: , Alone 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) ED ROS GENERAL - Review of Systems Review Of Systems: See Below Constitutional: Reports: No Symptoms HEENT: Reports: No Symptoms Respiratory: Reports: Cough, Sputum Cardiovascular: Reports: No Symptoms GI/Abdominal: Reports: No Symptoms : Reports: No Symptoms Neurological: Reports: No Symptoms ED EXAM, GENERAL - Physical Exam Exam: See Below Exam Limited By: No Limitations General Appearance: Alert, No Apparent Distress, Other (He was mildly tachycardic mildly hypoxic upon arrival here this seems to be doing better he was started on a liter per nasal cannula of oxygen) Eye Exam: Bilateral Eye: Normal Inspection Ears: Normal External Exam, Normal Canal, Hearing Grossly Normal, Normal TMs Nose: Normal Inspection, Normal Mucosa, No Blood Throat/Mouth: Normal Inspection, Normal Lips, Normal Teeth, Normal Gums, Normal Oropharynx, Normal Voice, No Airway Compromise, Other (He's had some dental disease in the past but no acute changes noted now) Head: Atraumatic, Normocephalic Neck: Normal Inspection, Supple, Non-Tender, Full Range of Motion. No: Lymphadenopathy (L), Lymphadenopathy (R) Respiratory/Chest: Other (Significantly reduced breath sounds with a few inspiratory wheezes significant expiratory wheezes especially end expiratory) Cardiovascular: Regular Rate, Rhythm, No Edema, No Murmur GI/Abdominal: Normal Bowel Sounds, Soft, Non-Tender, No Organomegaly, No Distention, No Abnormal Bruit, No Mass Extremities: Normal Inspection, No Pedal Edema. No: Leg Pain Course - Vital Signs Last Recorded V/S: Last Vital Signs Temp 35.3 C 11/13/17 14:50 Pulse 106 H 11/13/17 14:50 Resp 17 11/13/17 14:50 BP 128/92 H 11/13/17 14:50 Pulse Ox 92 L 11/13/17 17:51 - Orders/Labs/Meds Orders: Active Orders 24 hr Category Date Time Status RT Aerosol Therapy [RC] ASDIRECTED Care 11/13/17 15:13 Active RT Aerosol Therapy [RC] ASDIRECTED Care 11/13/17 17:51 Active Chest 2V [CR] Stat Exams 11/13/17 15:13 Taken Labs: Laboratory Tests 11/13/17 11/13/17 11/13/17 Range/Units 14:55 14:55 15:14 WBC 11.77 H (4.23-9.07) K/mm3 RBC 5.70 (4.63-6.08) M/mm3 Hgb 18.6 H (13.7-17.5) gm/L Hct 53.9 H (40.1-51.0) % MCV 94.6 H (79.0-92.2) fl MCH 32.6 H (25.7-32.2) pg MCHC 34.5 (32.2-35.5) g/dl RDW Std Deviation 48.1 H (35.1-43.9) fL Plt Count 151 L (163-337) K/mm3 MPV 12.4 H (9.4-12.3) fl Neutrophils % (Manual) 78 H (40-60) % Band Neutrophils % 0 (0-10) % Lymphocytes % (Manual) 18 L (20-40) % Atypical Lymphs % 0 % Monocytes % (Manual) 1 L (2-10) % Eosinophils % (Manual) 3 (0.8-7.0) % Basophils % (Manual) 0 L (0.2-1.2) Platelet Estimate Adequate RBC Morph Comment Normal ABG pH 7.42 (7.35-7.45) ABG pCO2 33.9 L (35.0-45.0) mmHg ABG pO2 60.0 L (80.0-100.0) mmHg ABG HCO3 21.5 L (22.0-26.0) meq/L ABG O2 Saturation 93.4 L (96.0-97.0) % ABG Base Excess -1.5 (-2-2.0) Karan Test Positive O2 Delivery Device Nasal cannula Oxygen Flow Rate 2.0 FiO2 0.00 L (21.00-100.00) % Sodium 141 (136-145) mEq/L Potassium 3.8 (3.5-5.1) mEq/L Chloride 105 (98-107) mEq/L Carbon Dioxide 25 (21-32) mEq/L Anion Gap 14.8 (5-15) BUN 8 (7-18) mg/dL Creatinine 1.0 (0.7-1.3) mg/dL Est Cr Clr Drug Dosing 89.46 mL/min Estimated GFR (MDRD) > 60 (>60) mL/min BUN/Creatinine Ratio 8.0 L (14-18) Glucose 110 H (74-106) mg/dL Calcium 9.3 (8.5-10.1) mg/dL Total Bilirubin 2.5 H (0.2-1.0) mg/dL Direct Bilirubin (0.0-0.2) mg/dl AST 44 H (15-37) U/L ALT 64 H (16-63) U/L Alkaline Phosphatase 113 (46-116) U/L Total Protein 7.5 (6.4-8.2) g/dl Albumin 4.1 (3.4-5.0) g/dl Globulin 3.4 gm/dL Albumin/Globulin Ratio 1.2 (1-2) 11/13/17 Range/Units 16:42 WBC (4.23-9.07) K/mm3 RBC (4.63-6.08) M/mm3 Hgb (13.7-17.5) gm/L Hct (40.1-51.0) % MCV (79.0-92.2) fl MCH (25.7-32.2) pg MCHC (32.2-35.5) g/dl RDW Std Deviation (35.1-43.9) fL Plt Count (163-337) K/mm3 MPV (9.4-12.3) fl Neutrophils % (Manual) (40-60) % Band Neutrophils % (0-10) % Lymphocytes % (Manual) (20-40) % Atypical Lymphs % % Monocytes % (Manual) (2-10) % Eosinophils % (Manual) (0.8-7.0) % Basophils % (Manual) (0.2-1.2) Platelet Estimate RBC Morph Comment ABG pH (7.35-7.45) ABG pCO2 (35.0-45.0) mmHg ABG pO2 (80.0-100.0) mmHg ABG HCO3 (22.0-26.0) meq/L ABG O2 Saturation (96.0-97.0) % ABG Base Excess (-2-2.0) Karan Test O2 Delivery Device Oxygen Flow Rate FiO2 (21.00-100.00) % Sodium (136-145) mEq/L Potassium (3.5-5.1) mEq/L Chloride (98-107) mEq/L Carbon Dioxide (21-32) mEq/L Anion Gap (5-15) BUN (7-18) mg/dL Creatinine (0.7-1.3) mg/dL Est Cr Clr Drug Dosing mL/min Estimated GFR (MDRD) (>60) mL/min BUN/Creatinine Ratio (14-18) Glucose (74-106) mg/dL Calcium (8.5-10.1) mg/dL Total Bilirubin (0.2-1.0) mg/dL Direct Bilirubin 0.40 H (0.0-0.2) mg/dl AST (15-37) U/L ALT (16-63) U/L Alkaline Phosphatase (46-116) U/L Total Protein (6.4-8.2) g/dl Albumin (3.4-5.0) g/dl Globulin gm/dL Albumin/Globulin Ratio (1-2) Meds: Medications Discontinued Medications Generic Name Dose Route Start Last Admin Trade Name Freq PRN Reason Stop Dose Admin Albuterol/Ipratropium 3 ml 11/13/17 15:12 11/13/17 15:30 Duoneb 3.0-0.5 Mg/3 Ml NEB 11/13/17 15:13 3 ml ONETIME ONE Administration Albuterol/Ipratropium 3 ml 11/13/17 17:51 11/13/17 17:53 Duoneb 3.0-0.5 Mg/3 Ml NEB 11/13/17 17:52 3 ml ONETIME ONE Administration Albuterol/Ipratropium Confirm 11/13/17 17:55 11/13/17 17:53 Duoneb 3.0-0.5 Mg/3 Ml Administered 11/13/17 17:56 Not Given Dose 3 ml .ROUTE .STK-MED ONE Methylprednisolone Sodium Succinate 125 mg 11/13/17 15:12 11/13/17 15:25 Solu-Medrol IVPUSH 11/13/17 15:13 125 mg ONETIME ONE Administration - Re-Assessments/Exams Free Text/Narrative Re-Assessment/Exam: 11/13/17 17:42 Patient had significant improvement from his symptoms after single DuoNeb treatment. He was also given Solu-Medrol 125 mg IV however this is not been long enough to offer some benefit the patient has been taken off supplemental oxygen he is saturating between 88 and 93% on room air. He checks his O2 saturation at home and does not want to be admitted. Base willing to try steroids more aggressive nebulizer treatment. He just finished a course of doxycycline him not sure a repeat course of antibiotics will help him his cough overall is getting better. He's been on several courses of steroids. He needs his albuterol refilled we'll do this but I will start him on DuoNeb's 4 times a day at home 11/13/17 18:25 Patient had a second DuoNeb while here and this helped even more at this point he still is diminished breath sounds but no wheezes crackles or rhonchi. He'll be discharged at this point. The patient verbalizes understanding to the discharge instructions Departure - Departure Time of Disposition: 18:26 Disposition: Home, Self-Care 01 Clinical Impression: COPD exacerbation - Discharge Information Prescriptions: Albuterol [IMW: Albuterol] 2.5 mg .XX Q12H PRN #30 ml PRN Reason: Shortness Of Breath Albuterol/Ipratropium [DuoNeb 3.0-0.5 MG/3 ML] 3 ml .XX Q6H #120 neb predniSONE [Prednisone] 10 mg PO Q24H #70 tablet Referrals: Thompson Martines Jr, MD [Primary Care Provider] - Forms: ED Department Discharge Additional Instructions: Return to the emergency room with any questions problems worsening symptoms if here O2 saturation drops or does not stay above 90% return to emergency room. You been started on a prednisone taper take this as directed. Use the DuoNeb's, or the albuterol ipratropium nebulizers 4 times daily approximately every 6 hours as practical. If needed he can use albuterol nebs twice daily. Follow-up with your regular doctor tomorrow or Tuesday. - My Orders Last 24 Hours: My Active Orders 11/13/17 15:13 RT Aerosol Therapy [RC] ASDIRECTED Chest 2V [CR] Stat 11/13/17 17:51 RT Aerosol Therapy [RC] ASDIRECTED - Assessment/Plan Last 24 Hours: My Active Orders 11/13/17 15:13 RT Aerosol Therapy [RC] ASDIRECTED Chest 2V [CR] Stat 11/13/17 17:51 RT Aerosol Therapy [RC] ASDIRECTED
[2017-11-13] MEDS ORDERED: Albuterol/Ipratropium 3.0-0.5 MG/3 ML Neb Soln NEB ONE ×2 (15:12→17:51)
[2017-11-13] MEDS ORDERED: methylPREDNISolone Sodium Succinate 125 MG/2 ML SDV IVPUSH ONE (15:12)
[2017-11-13] MEDS ORDERED: Albuterol/Ipratropium 3.0-0.5 MG/3 ML Neb Soln ONE (17:55)
--- NOTE | 2017-11-14 08:00 | CR ---
Chest: Two views of the chest were obtained. Comparison: Prior chest x-ray of 09/19/17. Heart size and mediastinum are within normal limits. Lungs are clear. Lungs are hyperinflated compatible with emphysematous change. No acute parenchymal densities are seen. Minimal degenerative endplate spurring is noted within the spine. Impression: 1. Emphysematous change. Nothing acute is seen on two-view chest x-ray. Diagnostic code #2
== END 2017-11-13 18:40 | disposition home or self-care (01) ==
LOC: JD.ED 14:43
DX: J44.1 Chronic obstructive pulmonary disease with (acute) exacerbation (principal); Z87.891 Personal history of nicotine dependence; Z79.899 Other long term (current) drug therapy
CPT/HCPCS: 36415; 36600; 71046; 80053; 82248; 82803; 85025; 94640; 96374; 99285; J2930; 99284

== ENCOUNTER 2017-12-14 05:46 | Emergency (ER) | payer BC ==
[2017-12-14] MEDS ORDERED: Albuterol/Ipratropium 3.0-0.5 MG/3 ML Neb Soln NEB ONE ×2 (05:59→06:54)
[2017-12-14] MEDS ORDERED: Sodium Chloride 0.9% 10 ML Syringe FLUSH PRN (05:59)
[2017-12-14] MEDS ORDERED: methylPREDNISolone Sodium Succinate 125 MG/2 ML SDV IVPUSH ONE (05:59)
[2017-12-14] MEDS ORDERED: Magnesium Sulfate/Water 2 GM in Premix Bag 1 BAG IV ONE (06:00)
--- NOTE | 2017-12-14 06:05 | EDM.PDOC ---
ED HPI GENERAL MEDICAL PROBLEM - General Chief Complaint: Respiratory Problem Stated Complaint: SOB Time Seen by Provider: 12/14/17 05:55 Source of Information: Reports: Patient History Limitations: Reports: No Limitations - History of Present Illness INITIAL COMMENTS - FREE TEXT/NARRATIVE: The patient presents with increased shortness of breath. He does have a history of COPD. He still smokes. He is on duoneb, albuterol and ellipta. He noticed he was getting increasing shortness of breath last night and it progressed through the night. He has a slight cough. He has no fever, chills, chest pain, abdominal pain nausea or vomiting. He was seen here about a month ago and he needed to go on steroids. He was 86% on room air when he arrived. Onset: Gradual Duration: Day(s): (Yesterday) Severity: Severe Improves with: Reports: None Associated Symptoms: Reports: Cough, Shortness of Breath. Denies: Chest Pain, Fever/Chills, Headaches, Nausea/Vomiting - Related Data Allergies Allergy/AdvReac Type Severity Reaction Status Date / Time No Known Allergies Allergy Verified 09/19/17 07:23 Home Meds: Home Meds Umeclidinium Brm/Vilanterol Tr [Anoro Ellipta 62.5-25 Mcg INH] 1 each IH DAILY 09/19/17 [History] Albuterol [Proair HFA] 2 puff INH Q4H PRN 11/13/17 [History] Albuterol/Ipratropium [DuoNeb 3.0-0.5 MG/3 ML] 3 ml .XX Q6H #120 neb 11/13/17 [ Rx] Prednisone [IJD: predniSONE] 40 mg PO WITHBREAKFAST #14 tab 12/14/17 [Rx] Past Medical History - Past Health History Medical/Surgical History: Denies Medical/Surgical History Cardiovascular History: Reports: SOB on Exertion Respiratory History: Reports: COPD, SOB Musculoskeletal History: Reports: Arthritis, Back Pain, Chronic - Past Surgical History HEENT Surgical History: Reports: Oral Surgery, Other (See Below) Other HEENT Surgeries/Procedures: 2007 Cardiovascular Surgical History: Reports: None Respiratory Surgical History: Reports: None GI Surgical History: Reports: Hernia, Inguinal Social & Family History - Family History Family Medical History: Noncontributory HEENT: Reports: None Cardiac: Reports: Heart Failure, Heart Murmur, Pacemaker, Other (See Below) Other Cardiac Family History: mother/father Neurological: Reports: Parkinson's, Other (See Below) Other Neurological Family History: father Oncologic: Reports: Prostate, Other (See Below) Other Oncologic Family History: father - Tobacco Use Smoking Status *Q: Current Every Day Smoker Years of Tobacco use: 40 Packs/Tins Daily: 0.2 Used Tobacco, but Quit: No Second Hand Smoke Exposure: Yes - Caffeine Use Caffeine Use: Reports: Coffee - Alcohol Use Days Per Week of Alcohol Use: 7 Number of Drinks Per Day: 2 Total Drinks Per Week: 14 - Recreational Drug Use Recreational Drug Use: No - Living Situation & Occupation Living situation: Reports: , Alone 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) ED ROS GENERAL - Review of Systems Review Of Systems: See Below Constitutional: Reports: No Symptoms HEENT: Reports: No Symptoms Respiratory: Reports: Shortness of Breath, Cough Cardiovascular: Reports: No Symptoms Endocrine: Reports: No Symptoms GI/Abdominal: Reports: No Symptoms : Reports: No Symptoms Musculoskeletal: Reports: No Symptoms ED EXAM, GENERAL - Physical Exam Exam: See Below Exam Limited By: No Limitations General Appearance: Alert, Moderate Distress Ears: Normal External Exam Nose: Normal Inspection Head: Atraumatic, Normocephalic Neck: Normal Inspection Respiratory/Chest: Respiratory Distress (Moderate he speaks in short sentences) , Decreased Breath Sounds, Wheezing Cardiovascular: Regular Rate, Rhythm, No Edema, No Murmur GI/Abdominal: Soft, Non-Tender, No Organomegaly, No Mass Back Exam: Normal Inspection Extremities: Normal Inspection Neurological: Alert, Oriented, No Motor/Sensory Deficits Course - Vital Signs Last Recorded V/S: Last Vital Signs Temp 98.2 F 12/14/17 05:50 Pulse 99 12/14/17 05:50 Resp 28 H 12/14/17 05:50 BP 174/104 H 12/14/17 05:50 Pulse Ox 86 L 12/14/17 05:50 - Orders/Labs/Meds Orders: Active Orders 24 hr Category Date Time Status Cardiac Monitoring [RC] . DIRECTED Care 12/14/17 05:59 Active Oxygen Therapy [RC] PRN Care 12/14/17 05:59 Active Peripheral IV Care [RC] . DIRECTED Care 12/14/17 05:59 Active RT Aerosol Therapy [RC] ASDIRECTED Care 12/14/17 05:59 Active RT Aerosol Therapy [RC] ASDIRECTED Care 12/14/17 06:54 Active Chest 1V Frontal [CR] Stat Exams 12/14/17 05:59 Taken Magnesium Sulfate/Water [Magnesium Sulfate 2 GM in Med 12/14/17 06:00 Active Water 50 ML] 2 gm Premix Bag 1 bag IV ONETIME Sodium Chloride 0.9% [Saline Flush] Med 12/14/17 05:59 Active 10 ml FLUSH ASDIRECTED PRN Peripheral IV Insertion Adult [OM.PC] Stat Oth 12/14/17 05:59 Ordered Medication Orders Magnesium Sulfate 2 gm/ Premix 50 mls @ 25 mls/hr IV ONETIME ONE Stop: 12/14/17 07:59 Last Admin: 12/14/17 06:14 Dose: 25 mls/hr Sodium Chloride (Saline Flush) 10 ml FLUSH ASDIRECTED PRN PRN Reason: Keep Vein Open Last Admin: 12/14/17 06:14 Dose: 10 ml Labs: Laboratory Tests 12/14/17 12/14/17 Range/Units 06:08 06:08 WBC 6.56 (4.23-9.07) K/mm3 RBC 5.06 (4.63-6.08) M/mm3 Hgb 16.5 (13.7-17.5) gm/L Hct 48.1 (40.1-51.0) % MCV 95.1 H (79.0-92.2) fl MCH 32.6 H (25.7-32.2) pg MCHC 34.3 (32.2-35.5) g/dl RDW Std Deviation 44.3 H (35.1-43.9) fL Plt Count 113 L (163-337) K/mm3 MPV 11.8 (9.4-12.3) fl Neut % (Auto) 66.7 (34.0-67.9) % Lymph % (Auto) 14.8 L (21.8-53.1) % [place] % (Auto) 12.0 (5.3-12.2) % Eos % (Auto) 5.5 (0.8-7.0) Baso % (Auto) 0.8 (0.1-1.2) % Neut # (Auto) 4.38 (1.78-5.38) K/mm3 Lymph # (Auto) 0.97 L (1.32-3.57) K/mm3 [place] # (Auto) 0.79 (0.30-0.82) K/mm3 Eos # (Auto) 0.36 (0.04-0.54) K/mm3 Baso # (Auto) 0.05 (0.01-0.08) K/mm3 Sodium 146 H (136-145) mEq/L Potassium 3.8 (3.5-5.1) mEq/L Chloride 110 H (98-107) mEq/L Carbon Dioxide 24 (21-32) mEq/L Anion Gap 15.8 H (5-15) BUN 12 (7-18) mg/dL Creatinine 0.9 (0.7-1.3) mg/dL Est Cr Clr Drug Dosing 99.40 mL/min Estimated GFR (MDRD) > 60 (>60) mL/min BUN/Creatinine Ratio 13.3 L (14-18) Glucose 137 H (74-106) mg/dL Calcium 8.7 (8.5-10.1) mg/dL Total Bilirubin 1.2 H (0.2-1.0) mg/dL AST 36 (15-37) U/L ALT 74 H (16-63) U/L Alkaline Phosphatase 94 (46-116) U/L Total Protein 6.7 (6.4-8.2) g/dl Albumin 3.8 (3.4-5.0) g/dl Globulin 2.9 gm/dL Albumin/Globulin Ratio 1.3 (1-2) Meds: Medications Generic Name Dose Route Start Last Admin Trade Name Freq PRN Reason Stop Dose Admin Magnesium Sulfate 2 gm/ Premix 50 mls @ 25 mls/hr 12/14/17 06:00 12/14/17 06: 14 IV 12/14/17 07:59 25 mls/hr ONETIME ONE Administration Sodium Chloride 10 ml 12/14/17 05:59 12/14/17 06:14 Saline Flush FLUSH 10 ml ASDIRECTED PRN Administration Keep Vein Open Discontinued Medications Generic Name Dose Route Start Last Admin Trade Name Freq PRN Reason Stop Dose Admin Albuterol/Ipratropium 3 ml 12/14/17 05:59 12/14/17 06:09 Duoneb 3.0-0.5 Mg/3 Ml NEB 12/14/17 06:00 3 ml ONETIME ONE Administration Albuterol/Ipratropium 3 ml 12/14/17 06:54 Duoneb 3.0-0.5 Mg/3 Ml NEB 12/14/17 06:55 ONETIME ONE Methylprednisolone Sodium Succinate 125 mg 12/14/17 05:59 12/14/17 06:14 Solu-Medrol IVPUSH 12/14/17 06:00 125 mg ONETIME ONE Administration - Re-Assessments/Exams Free Text/Narrative Re-Assessment/Exam: 12/14/17 06:04 I ordered oxygen, IV saline lock, CXR, labs, duoneb, solu-medrol 125mg IV and magnesium 2 grams IV. 12/14/17 07:00 His CBC looks good. His Na was elevated at 146. His anion gap was elevated at 15.8. His glucose was elevated at 137. His total bili was elevated at 1.2. His CXR shows COPD. He has no infiltrates. He feels better and I was able to take him off of the oxygen. He still has some wheezing so I ordered another duoneb. I will discharge him home on some prednisone. Departure - Departure Time of Disposition: 07:05 Disposition: Home, Self-Care 01 Condition: Good Clinical Impression: COPD exacerbation - Discharge Information Prescriptions: Prednisone [IJD: predniSONE] 40 mg PO WITHBREAKFAST #14 tab Referrals: Thompson Martines Jr, MD [Ordering Only Provider] - 1 Week Forms: ED Department Discharge Additional Instructions: Take the prednisone 40mg daily for 7 days. Keep taking your nebs and other medications Please return if you are worse. - My Orders Last 24 Hours: My Active Orders 12/14/17 05:59 Cardiac Monitoring [RC] . DIRECTED Oxygen Therapy [RC] PRN Peripheral IV Care [RC] . DIRECTED RT Aerosol Therapy [RC] ASDIRECTED Chest 1V Frontal [CR] Stat Sodium Chloride 0.9% [Saline Flush] 10 ml FLUSH ASDIRECTED PRN Peripheral IV Insertion Adult [OM.PC] Stat 12/14/17 06:00 Magnesium Sulfate/Water [Magnesium Sulfate 2 GM in Water 50 ML] 2 gm Premix Bag 1 bag IV ONETIME 12/14/17 06:54 RT Aerosol Therapy [RC] ASDIRECTED - Assessment/Plan Last 24 Hours: My Active Orders 12/14/17 05:59 Cardiac Monitoring [RC] . DIRECTED Oxygen Therapy [RC] PRN Peripheral IV Care [RC] . DIRECTED RT Aerosol Therapy [RC] ASDIRECTED Chest 1V Frontal [CR] Stat Sodium Chloride 0.9% [Saline Flush] 10 ml FLUSH ASDIRECTED PRN Peripheral IV Insertion Adult [OM.PC] Stat 12/14/17 06:00 Magnesium Sulfate/Water [Magnesium Sulfate 2 GM in Water 50 ML] 2 gm Premix Bag 1 bag IV ONETIME 12/14/17 06:54 RT Aerosol Therapy [RC] ASDIRECTED
[2017-12-14 07:31] VITALS: BP 130/85
--- NOTE | 2017-12-14 08:12 | CR ---
Chest: Portable view of the chest was obtained. Comparison: Prior chest x-ray of 11/13/17. Heart size is normal. Slightly enlarged main pulmonary arteries are seen which appear stable. Lungs are clear without acute parenchymal change but are hyperinflated compatible with emphysematous change. Bony structures are grossly intact. Impression: 1. Nothing acute is seen on portable chest x-ray. Diagnostic code #2
== END 2017-12-14 08:01 | disposition home or self-care (01) ==
LOC: JD.ED 05:46
DX: J44.1 Chronic obstructive pulmonary disease with (acute) exacerbation (principal); F17.210 Nicotine dependence, cigarettes, uncomplicated
CPT/HCPCS: 36415; 71045; 80053; 85025; 94640; 96365; 96366; 96375; 99285; J2930; J7050; 99284; J3475

== ENCOUNTER 2019-08-14 19:19 | Observation (INO) | payer BC ==
[2019-08-14] MEDS ORDERED: Albuterol 0.083% 2.5 MG/3 ML Neb Soln NEB ONE ×2 (19:26→21:19)
[2019-08-14] MEDS ORDERED: methylPREDNISolone Sodium Succinate 125 MG/2 ML SDV IVPUSH ONE (19:26)
[2019-08-14] MEDS ORDERED: Sodium Chloride 0.9% 10 ML Syringe FLUSH PRN (19:26)
[2019-08-14] MEDS ORDERED: Sodium Chloride 0.9% 1,000 ML IV SCH (19:30)
--- NOTE | 2019-08-14 19:49 | EDM.PDOC ---
ED HPI GENERAL MEDICAL PROBLEM - General Chief Complaint: Respiratory Problem Stated Complaint: [facility] Time Seen by Provider: 08/14/19 19:21 Source of Information: Reports: Patient, EMS, RN Notes Reviewed - History of Present Illness INITIAL COMMENTS - FREE TEXT/NARRATIVE: 59 year old male comes in with severe difficulty breathing. He is an inmate at the [facility], has chronic COPD, started getting more short of breath than usual yesterday with symptoms worsening today. He is coughing but not more than usual. Low grade fever on arrival to ED. No sore throat, chest or abd pain. He does continue to smoke. - Related Data Allergies Allergy/AdvReac Type Severity Reaction Status Date / Time No Known Allergies Allergy Verified 08/14/19 19:25 Home Meds: Home Meds Umeclidinium Brm/Vilanterol Tr [Anoro Ellipta 62.5-25 Mcg INH] 1 each IH DAILY 09/19/17 [History] Albuterol [Proair HFA] 2 puff INH Q4H PRN 11/13/17 [History] Albuterol/Ipratropium [DuoNeb 3.0-0.5 MG/3 ML] 3 ml .XX Q6H #120 neb 11/13/17 [ Rx] Prednisone [IJD: predniSONE] 40 mg PO WITHBREAKFAST #14 tab 12/14/17 [Rx] amLODIPine [Norvasc] 0 mg PO DAILY 08/14/19 [History] Past Medical History - Past Health History Medical/Surgical History: Denies Medical/Surgical History Cardiovascular History: Reports: Hypertension, SOB on Exertion Respiratory History: Reports: COPD, SOB Genitourinary History: Reports: None Musculoskeletal History: Reports: Arthritis, Back Pain, Chronic Neurological History: Reports: None Psychiatric History: Reports: None Endocrine/Metabolic History: Reports: None Hematologic History: Reports: None Immunologic History: Reports: None Oncologic (Cancer) History: Reports: None Dermatologic History: Reports: None - Infectious Disease History Infectious Disease History: Reports: None - Past Surgical History HEENT Surgical History: Reports: Oral Surgery, Other (See Below) Other HEENT Surgeries/Procedures: 2007 Cardiovascular Surgical History: Reports: None Respiratory Surgical History: Reports: None GI Surgical History: Reports: Hernia, Inguinal Social & Family History - Family History Family Medical History: Noncontributory HEENT: Reports: None Cardiac: Reports: Heart Failure, Heart Murmur, Pacemaker, Other (See Below) Other Cardiac Family History: mother/father Neurological: Reports: Parkinson's, Other (See Below) Other Neurological Family History: father Oncologic: Reports: Prostate, Other (See Below) Other Oncologic Family History: father - Tobacco Use Smoking Status *Q: Current Every Day Smoker Years of Tobacco use: 35 Packs/Tins Daily: 0.5 - Caffeine Use Caffeine Use: Reports: Coffee - Recreational Drug Use Recreational Drug Use: No - Living Situation & Occupation Living situation: Reports: , Alone Occupation: Employed ([employer]) ED ROS GENERAL - Review of Systems Review Of Systems: See Below Constitutional: Reports: Fever (low grade fever on arrival to ED), Chills HEENT: Denies: Sinus Problem, Throat Pain Respiratory: Reports: Shortness of Breath, Wheezing, Cough, Sputum (scant) Cardiovascular: Reports: Chest Pain (only with coughing) GI/Abdominal: Denies: Abdominal Pain, Nausea, Vomiting Musculoskeletal: Reports: No Symptoms Skin: Reports: No Symptoms Neurological: Reports: Dizziness ED EXAM, GENERAL - Physical Exam Exam: See Below General Appearance: Alert, Moderate Distress Eye Exam: Bilateral Eye: PERRL Nose: Normal Inspection Throat/Mouth: Normal Inspection, Normal Oropharynx Head: Atraumatic. No: Facial Swelling Neck: Supple, Full Range of Motion, Other (no JVD). No: Lymphadenopathy (L), Lymphadenopathy (R) Respiratory/Chest: Respiratory Distress, Rhonchi (bilat), Wheezing (moderate bilat), Accessory Muscle Use (mild) Cardiovascular: Tachycardia GI/Abdominal: Soft, Non-Tender Extremities: No: Pedal Edema, Leg Pain, Increased Warmth, Redness Neurological: Alert, No Motor/Sensory Deficits Skin Exam: Warm, Dry, Normal Color Course - Vital Signs Last Recorded V/S: Last Vital Signs Temp 99.4 F 08/14/19 19:21 Pulse 109 H 08/14/19 19:58 Resp 23 H 08/14/19 19:58 BP 143/86 H 08/14/19 19:58 Pulse Ox 95 08/14/19 20:30 - Orders/Labs/Meds Orders: Active Orders 24 hr Category Date Time Status Oxygen Therapy [RC] ASDIRECTED Care 08/14/19 19:29 Active Peripheral IV Care [RC] . DIRECTED Care 12/10/19 19:27 Active RT Aerosol Therapy [RC] ASDIRECTED Care 08/14/19 19:27 Active RT Aerosol Therapy [RC] ASDIRECTED Care 08/14/19 20:23 Active RT Aerosol Therapy [RC] ASDIRECTED Care 08/14/19 21:19 Active CXR [Chest 2V] [CR] Stat Exams 08/14/19 19:27 Taken CULTURE BLOOD [BC] Stat Lab 08/14/19 19:45 Received Sodium Chloride 0.9% [Normal Saline] 1,000 ml Med 08/14/19 19:30 Active IV ONETIME Sodium Chloride 0.9% [Saline Flush] Med 08/14/19 19:26 Active 10 ml FLUSH ASDIRECTED PRN Peripheral IV Insertion Adult [OM.PC] Stat Oth 08/14/19 19:27 Ordered Medication Orders Sodium Chloride (Normal Saline) 1,000 mls @ 999 mls/hr IV ONETIME MARYURI Last Admin: 08/14/19 19:37 Dose: 999 mls/hr Sodium Chloride (Saline Flush) 10 ml FLUSH ASDIRECTED PRN PRN Reason: Keep Vein Open Last Admin: 08/14/19 19:40 Dose: 10 ml Labs: Laboratory Tests 08/14/19 08/14/19 08/14/19 Range/Units 19:45 19:45 19:45 WBC 8.74 (4.23-9.07) K/mm3 RBC 5.53 (4.63-6.08) M/mm3 Hgb 18.1 H D (13.7-17.5) gm/dl Hct 52.1 H (40.1-51.0) % MCV 94.2 H (79.0-92.2) fl MCH 32.7 H (25.7-32.2) pg MCHC 34.7 (32.2-35.5) g/dl RDW Std Deviation 43.0 (35.1-43.9) fL Plt Count 131 L (163-337) K/mm3 MPV 11.8 (9.4-12.3) fl Neut % (Auto) 67.2 (34.0-67.9) % Lymph % (Auto) 15.1 L (21.8-53.1) % [place] % (Auto) 11.9 (5.3-12.2) % Eos % (Auto) 5.3 (0.8-7.0) Baso % (Auto) 0.3 (0.1-1.2) % Neut # (Auto) 5.87 H (1.78-5.38) K/mm3 Lymph # (Auto) 1.32 (1.32-3.57) K/mm3 [place] # (Auto) 1.04 H (0.30-0.82) K/mm3 Eos # (Auto) 0.46 (0.04-0.54) K/mm3 Baso # (Auto) 0.03 (0.01-0.08) K/mm3 Puncture Site ABG pH (7.35-7.45) ABG pCO2 (35.0-45.0) mmHg ABG pO2 (80.0-100.0) mmHg ABG HCO3 (22.0-26.0) meq/L ABG O2 Saturation (96.0-97.0) % ABG Base Excess (-2-2.0) Karan Test A-a Gradient mmHg O2 Delivery Device Oxygen Flow Rate FiO2 (21.00-100.00) % Sodium 143 (136-145) mEq/L Potassium 3.6 (3.5-5.1) mEq/L Chloride 107 (98-107) mEq/L Carbon Dioxide 27 (21-32) mEq/L Anion Gap 12.6 (5-15) BUN 12 (7-18) mg/dL Creatinine 0.8 (0.7-1.3) mg/dL Est Cr Clr Drug Dosing 109.13 mL/min Estimated GFR (MDRD) > 60 (>60) mL/min BUN/Creatinine Ratio 15.0 (14-18) Glucose 100 (74-106) mg/dL Lactic Acid (0.4-2.0) mmol/L Calcium 9.1 (8.5-10.1) mg/dL Total Bilirubin 1.6 H (0.2-1.0) mg/dL AST 18 (15-37) U/L ALT 35 (16-63) U/L Alkaline Phosphatase 104 (46-116) U/L C-Reactive Protein 0.5 (<1.0) mg/dL Total Protein 7.2 (6.4-8.2) g/dl Albumin 3.8 (3.4-5.0) g/dl Globulin 3.4 gm/dL Albumin/Globulin Ratio 1.1 (1-2) 08/14/19 08/14/19 Range/Units 19:45 21:28 WBC (4.23-9.07) K/mm3 RBC (4.63-6.08) M/mm3 Hgb (13.7-17.5) gm/dl Hct (40.1-51.0) % MCV (79.0-92.2) fl MCH (25.7-32.2) pg MCHC (32.2-35.5) g/dl RDW Std Deviation (35.1-43.9) fL Plt Count (163-337) K/mm3 MPV (9.4-12.3) fl Neut % (Auto) (34.0-67.9) % Lymph % (Auto) (21.8-53.1) % [place] % (Auto) (5.3-12.2) % Eos % (Auto) (0.8-7.0) Baso % (Auto) (0.1-1.2) % Neut # (Auto) (1.78-5.38) K/mm3 Lymph # (Auto) (1.32-3.57) K/mm3 [place] # (Auto) (0.30-0.82) K/mm3 Eos # (Auto) (0.04-0.54) K/mm3 Baso # (Auto) (0.01-0.08) K/mm3 Puncture Site Rt radial ABG pH 7.36 (7.35-7.45) ABG pCO2 39.7 (35.0-45.0) mmHg ABG pO2 54.0 L (80.0-100.0) mmHg ABG HCO3 22.1 (22.0-26.0) meq/L ABG O2 Saturation 85.5 L (96.0-97.0) % ABG Base Excess -2.5 L (-2-2.0) Karan Test Positive A-a Gradient 46 mmHg O2 Delivery Device Room air Oxygen Flow Rate 0.0 FiO2 21.00 (21.00-100.00) % Sodium (136-145) mEq/L Potassium (3.5-5.1) mEq/L Chloride (98-107) mEq/L Carbon Dioxide (21-32) mEq/L Anion Gap (5-15) BUN (7-18) mg/dL Creatinine (0.7-1.3) mg/dL Est Cr Clr Drug Dosing mL/min Estimated GFR (MDRD) (>60) mL/min BUN/Creatinine Ratio (14-18) Glucose (74-106) mg/dL Lactic Acid 0.9 (0.4-2.0) mmol/L Calcium (8.5-10.1) mg/dL Total Bilirubin (0.2-1.0) mg/dL AST (15-37) U/L ALT (16-63) U/L Alkaline Phosphatase (46-116) U/L C-Reactive Protein (<1.0) mg/dL Total Protein (6.4-8.2) g/dl Albumin (3.4-5.0) g/dl Globulin gm/dL Albumin/Globulin Ratio (1-2) Meds: Medications Generic Name Dose Route Start Last Admin Trade Name Freq PRN Reason Stop Dose Admin Sodium Chloride 1,000 mls @ 999 mls/hr 08/14/19 19:30 08/14/19 19:37 Normal Saline IV 999 mls/hr ONETIME MARYURI Administration Sodium Chloride 10 ml 08/14/19 19:26 08/14/19 19:40 Saline Flush FLUSH 10 ml ASDIRECTED PRN Administration Keep Vein Open Discontinued Medications Generic Name Dose Route Start Last Admin Trade Name Freq PRN Reason Stop Dose Admin Albuterol 2.5 mg 08/14/19 19:26 08/14/19 19:33 Proventil Neb Soln NEB 08/14/19 19:27 2.5 mg ONETIME ONE Administration Albuterol 2.5 mg 08/14/19 21:19 Proventil Neb Soln NEB 08/14/19 21:20 ONETIME ONE Albuterol/Ipratropium 3 ml 08/14/19 20:23 08/14/19 20:30 Duoneb 3.0-0.5 Mg/3 Ml NEB 08/14/19 20:24 3 ml ONETIME ONE Administration Methylprednisolone Sodium Succinate 125 mg 08/14/19 19:26 08/14/19 19:38 Solu-Medrol IVPUSH 08/14/19 19:27 125 mg ONETIME ONE Administration - Re-Assessments/Exams Free Text/Narrative Re-Assessment/Exam: 08/14/19 21:15. He did get some relief from the initial albuterol neb on arrival. He also had an albuterol neb not long before arrival. He continued to be quite tight even after the albuterol neb was given Solu-Medrol 125 mg IV. All it up by a dual nab. When checked on him a short time ago the wheezing was improved but still airflow bilateral on auscultation. Sats on 2-1/2 L nasal cannula running in the 93-94% range. I did turn the oxygen off and with that his sats immediately fell to the 90-91% range and within a few minutes of time further dropped to the 86-88% range. Arterial blood gases were done shortly after that showing a PO2 T4 CO2 39.7. 7.36. He was given a further albuterol nab oxygen restarted at 3 L nasal cannula. Therefore he is not going to be a candidate RV safe to go back to the [facility]. Patient will be admitted to [facility] observation status. Of note his chest x-ray was clear I do not see any sign of an infiltrate, white blood count normal other chemistries all relatively normal. Departure - Departure Time of Disposition: 22:03 Disposition: Refer to Observation Condition: Fair Clinical Impression: COPD exacerbation - Discharge Information Referrals: PCP,Unknown [Ordering Only Provider] - Forms: ED Department Discharge Sepsis Event Note - Evaluation Sepsis Screening Result: No Definite Risk - Focused Exam Vital Signs: Vital Signs Temp Pulse Resp BP Pulse Ox Pulse Ox 08/14/19 20:30 95 08/14/19 19:58 109 H 23 H 143/86 H 94 L 08/14/19 19:34 92 L 08/14/19 19:22 92 L 08/14/19 19:21 99.4 F 125 H 24 H 141/109 H 82 L Date Exam was Performed: 08/14/19 Time Exam was Performed: 22:00 ED Communication - Discussed Case With (1) Discussed Case With (1): Admitting Provider (Dr Manning, decision to admit at about 21:15) - My Orders Last 24 Hours: My Active Orders 08/14/19 19:26 Sodium Chloride 0.9% [Saline Flush] 10 ml FLUSH ASDIRECTED PRN 08/14/19 19:27 Peripheral IV Care [RC] . DIRECTED RT Aerosol Therapy [RC] ASDIRECTED CXR [Chest 2V] [CR] Stat Peripheral IV Insertion Adult [OM.PC] Stat 08/14/19 19:29 Oxygen Therapy [RC] ASDIRECTED 08/14/19 19:30 Sodium Chloride 0.9% [Normal Saline] 1,000 ml IV ONETIME 08/14/19 19:45 CULTURE BLOOD [BC] Stat 08/14/19 20:23 RT Aerosol Therapy [RC] ASDIRECTED 08/14/19 21:19 RT Aerosol Therapy [RC] ASDIRECTED - Assessment/Plan Last 24 Hours: My Active Orders 08/14/19 19:26 Sodium Chloride 0.9% [Saline Flush] 10 ml FLUSH ASDIRECTED PRN 08/14/19 19:27 Peripheral IV Care [RC] . DIRECTED RT Aerosol Therapy [RC] ASDIRECTED CXR [Chest 2V] [CR] Stat Peripheral IV Insertion Adult [OM.PC] Stat 08/14/19 19:29 Oxygen Therapy [RC] ASDIRECTED 08/14/19 19:30 Sodium Chloride 0.9% [Normal Saline] 1,000 ml IV ONETIME 08/14/19 19:45 CULTURE BLOOD [BC] Stat 08/14/19 20:23 RT Aerosol Therapy [RC] ASDIRECTED 08/14/19 21:19 RT Aerosol Therapy [RC] ASDIRECTED
[2019-08-14] MEDS ORDERED: Albuterol/Ipratropium 3.0-0.5 MG/3 ML Neb Soln NEB ONE (20:23)
[2019-08-14] MEDS ORDERED: Albuterol 0.083% 2.5 MG/3 ML Neb Soln NEB PRN (23:19)
[2019-08-14] MEDS ORDERED: Albuterol/Ipratropium 3.0-0.5 MG/3 ML Neb Soln NEB SCH (23:30)
[2019-08-14] MEDS ORDERED: cefTRIAXone 1 GM in Sodium Chloride 0.9% 100 ML IV SCH (23:30)
--- NOTE | 2019-08-14 23:37 | PCM.HP.2 ---
H&P History of Present Illness - General Date of Service: 08/14/19 Admit Problem/Dx: Admission Diagnosis/Problem Admission Diagnosis/Problem COPD, Moderate chronic obstructive pulmonary disease - History of Present Illness Initial Comments - Free Text/Narative: 59-year-old male with history of COPD presents to the emergency room with 2 weeks of shortness of breath. Patient states that approximately 2 weeks ago he developed a cough. 1-1/2 weeks ago he was placed in the custody at the local assisted. Over the last 2 weeks he has had progressive shortness of breath with dyspnea on exertion. He complains of worsening symptoms over the last couple of days. He has a tight chest with pleuritic chest pain, worse pain with deep inspiration in the middle of his chest that is nonradiating. Patient has approximately 38-uibf-uxib history and continues to smoke. He is not coughing as much and has not developed orthopnea or PND. He does have high blood pressure and takes Norvasc. In the emergency room he is found to have temperature of 99.4. Pulse ox initially was in the 80s and increased to 95% on 2 L. When oxygen was stopped it dropped back down into the 80s. Chest x-ray was done which showed hyperinflated lungs with emphysematous changes but no acute infiltrate. Patient was given multiple breathing treatments with albuterol in the emergency room and Solu-Medrol 125 mg. Patient was then admitted for failure to improve. - Related Data Allergies/Adverse Reactions: Allergies Allergy/AdvReac Type Severity Reaction Status Date / Time No Known Allergies Allergy Verified 08/14/19 19:25 Home Medications: Home Meds Umeclidinium Brm/Vilanterol Tr [Anoro Ellipta 62.5-25 Mcg INH] 1 each IH DAILY 09/19/17 [History] Albuterol [Proair HFA] 2 puff INH Q4H PRN 11/13/17 [History] Albuterol/Ipratropium [DuoNeb 3.0-0.5 MG/3 ML] 3 ml .XX Q6H #120 neb 11/13/17 [ Rx] Prednisone [IJD: predniSONE] 40 mg PO WITHBREAKFAST #14 tab 12/14/17 [Rx] amLODIPine [Norvasc] 0 mg PO DAILY 08/14/19 [History] Past Medical History - Past Health History Medical/Surgical History: Denies Medical/Surgical History Cardiovascular History: Reports: Hypertension, SOB on Exertion Respiratory History: Reports: COPD, SOB Genitourinary History: Reports: None Musculoskeletal History: Reports: Arthritis, Back Pain, Chronic Neurological History: Reports: None Psychiatric History: Reports: None Endocrine/Metabolic History: Reports: None Hematologic History: Reports: None Immunologic History: Reports: None Oncologic (Cancer) History: Reports: None Dermatologic History: Reports: None - Infectious Disease History Infectious Disease History: Reports: None - Past Surgical History HEENT Surgical History: Reports: Oral Surgery, Other (See Below) Other HEENT Surgeries/Procedures: 2007 Cardiovascular Surgical History: Reports: None Respiratory Surgical History: Reports: None GI Surgical History: Reports: Hernia, Inguinal Social & Family History - Family History Family Medical History: Noncontributory HEENT: Reports: None Cardiac: Reports: Heart Failure, Heart Murmur, Pacemaker, Other (See Below) Other Cardiac Family History: mother/father Neurological: Reports: Parkinson's, Other (See Below) Other Neurological Family History: father Oncologic: Reports: Prostate, Other (See Below) Other Oncologic Family History: father - Tobacco Use Smoking Status *Q: Current Every Day Smoker Years of Tobacco use: 35 Packs/Tins Daily: 0.5 - Caffeine Use Caffeine Use: Reports: Coffee - Recreational Drug Use Recreational Drug Use: No - Living Situation & Occupation Living situation: Reports: , Alone Occupation: Employed ([employer]) H&P Review of Systems - Review of Systems: Review Of Systems: Comprehensive ROS is negative, except as noted in HPI. Exam - Exam Exam: See Below - Vital Signs Vital Signs: Last Vital Signs Temp 99.4 F 08/14/19 19:21 Pulse 94 08/14/19 22:49 Resp 22 H 08/14/19 22:49 BP 116/75 08/14/19 22:49 Pulse Ox 93 L 08/14/19 22:49 Weight: 180 lb - Exam Quality Assessment: Supplemental Oxygen General: Alert, Oriented, 4 HEENT: Conjunctiva Clear, Hearing Intact, Mucosa Moist & [place], Pupils Equal Neck: Supple, Trachea Midline, 2 Lungs: Wheezing (Wheezing throughout both lung [place]). No: Normal Respiratory Effort (Increased respiratory effort with increased use of intercostal muscles.) , Rales, Rhonchi Cardiovascular: Regular Rate, Regular Rhythm GI/Abdominal Exam: Normal Bowel Sounds, Soft, Non-Tender, No Organomegaly, No Distention, No Abnormal Bruit Back Exam: Normal Inspection Extremities: Normal Inspection, Normal Range of Motion, Non-Tender, No Pedal Edema, Normal Capillary Refill Skin: Warm, Dry, Intact Neurological: Cranial Nerves Intact Neuro Extensive - Mental Status: Alert, Oriented x3, Normal Mood/Affect, Normal Cognition, Memory Intact Neuro Extensive - Motor, Sensory, Reflexes: CN II-XII Intact Psychiatric: Alert, Normal Affect, Normal Mood - Patient Data Lab Results Last 24 hrs: Laboratory Results - last 24 hr 08/14/19 08/14/19 08/14/19 Range/Units 19:45 19:45 19:45 WBC 8.74 (4.23-9.07) K/mm3 RBC 5.53 (4.63-6.08) M/mm3 Hgb 18.1 H D (13.7-17.5) gm/dl Hct 52.1 H (40.1-51.0) % MCV 94.2 H (79.0-92.2) fl MCH 32.7 H (25.7-32.2) pg MCHC 34.7 (32.2-35.5) g/dl RDW Std Deviation 43.0 (35.1-43.9) fL Plt Count 131 L (163-337) K/mm3 MPV 11.8 (9.4-12.3) fl Neut % (Auto) 67.2 (34.0-67.9) % Lymph % (Auto) 15.1 L (21.8-53.1) % [place] % (Auto) 11.9 (5.3-12.2) % Eos % (Auto) 5.3 (0.8-7.0) Baso % (Auto) 0.3 (0.1-1.2) % Neut # (Auto) 5.87 H (1.78-5.38) K/mm3 Lymph # (Auto) 1.32 (1.32-3.57) K/mm3 [place] # (Auto) 1.04 H (0.30-0.82) K/mm3 Eos # (Auto) 0.46 (0.04-0.54) K/mm3 Baso # (Auto) 0.03 (0.01-0.08) K/mm3 Puncture Site ABG pH (7.35-7.45) ABG pCO2 (35.0-45.0) mmHg ABG pO2 (80.0-100.0) mmHg ABG HCO3 (22.0-26.0) meq/L ABG O2 Saturation (96.0-97.0) % ABG Base Excess (-2-2.0) Karan Test A-a Gradient mmHg O2 Delivery Device Oxygen Flow Rate FiO2 (21.00-100.00) % Sodium 143 (136-145) mEq/L Potassium 3.6 (3.5-5.1) mEq/L Chloride 107 (98-107) mEq/L Carbon Dioxide 27 (21-32) mEq/L Anion Gap 12.6 (5-15) BUN 12 (7-18) mg/dL Creatinine 0.8 (0.7-1.3) mg/dL Est Cr Clr Drug Dosing 109.13 mL/min Estimated GFR (MDRD) > 60 (>60) mL/min BUN/Creatinine Ratio 15.0 (14-18) Glucose 100 (74-106) mg/dL Lactic Acid (0.4-2.0) mmol/L Calcium 9.1 (8.5-10.1) mg/dL Total Bilirubin 1.6 H (0.2-1.0) mg/dL AST 18 (15-37) U/L ALT 35 (16-63) U/L Alkaline Phosphatase 104 (46-116) U/L C-Reactive Protein 0.5 (<1.0) mg/dL Total Protein 7.2 (6.4-8.2) g/dl Albumin 3.8 (3.4-5.0) g/dl Globulin 3.4 gm/dL Albumin/Globulin Ratio 1.1 (1-2) 08/14/19 08/14/19 Range/Units 19:45 21:28 WBC (4.23-9.07) K/mm3 RBC (4.63-6.08) M/mm3 Hgb (13.7-17.5) gm/dl Hct (40.1-51.0) % MCV (79.0-92.2) fl MCH (25.7-32.2) pg MCHC (32.2-35.5) g/dl RDW Std Deviation (35.1-43.9) fL Plt Count (163-337) K/mm3 MPV (9.4-12.3) fl Neut % (Auto) (34.0-67.9) % Lymph % (Auto) (21.8-53.1) % [place] % (Auto) (5.3-12.2) % Eos % (Auto) (0.8-7.0) Baso % (Auto) (0.1-1.2) % Neut # (Auto) (1.78-5.38) K/mm3 Lymph # (Auto) (1.32-3.57) K/mm3 [place] # (Auto) (0.30-0.82) K/mm3 Eos # (Auto) (0.04-0.54) K/mm3 Baso # (Auto) (0.01-0.08) K/mm3 Puncture Site Rt radial ABG pH 7.36 (7.35-7.45) ABG pCO2 39.7 (35.0-45.0) mmHg ABG pO2 54.0 L (80.0-100.0) mmHg ABG HCO3 22.1 (22.0-26.0) meq/L ABG O2 Saturation 85.5 L (96.0-97.0) % ABG Base Excess -2.5 L (-2-2.0) Karan Test Positive A-a Gradient 46 mmHg O2 Delivery Device Room air Oxygen Flow Rate 0.0 FiO2 21.00 (21.00-100.00) % Sodium (136-145) mEq/L Potassium (3.5-5.1) mEq/L Chloride (98-107) mEq/L Carbon Dioxide (21-32) mEq/L Anion Gap (5-15) BUN (7-18) mg/dL Creatinine (0.7-1.3) mg/dL Est Cr Clr Drug Dosing mL/min Estimated GFR (MDRD) (>60) mL/min BUN/Creatinine Ratio (14-18) Glucose (74-106) mg/dL Lactic Acid 0.9 (0.4-2.0) mmol/L Calcium (8.5-10.1) mg/dL Total Bilirubin (0.2-1.0) mg/dL AST (15-37) U/L ALT (16-63) U/L Alkaline Phosphatase (46-116) U/L C-Reactive Protein (<1.0) mg/dL Total Protein (6.4-8.2) g/dl Albumin (3.4-5.0) g/dl Globulin gm/dL Albumin/Globulin Ratio (1-2) Result Diagrams: 08/14/19 19:45 08/14/19 19:45 Sepsis Event Note - Evaluation Sepsis Screening Result: No Definite Risk - Focused Exam Vital Signs: Vital Signs Temp Pulse Resp BP Pulse Ox Pulse Ox 08/14/19 22:49 94 22 H 116/75 93 L 08/14/19 20:30 95 08/14/19 19:58 109 H 23 H 143/86 H 94 L 08/14/19 19:34 92 L 08/14/19 19:22 92 L 08/14/19 19:21 99.4 F 125 H 24 H 141/109 H 82 L Date Exam was Performed: 08/14/19 Time Exam was Performed: 23:29 Problem List Initiated/Reviewed/Updated: Yes Orders Last 24hrs: Active Orders 24 hr Category Date Time Status Admission Status [Patient Status] [ADT] Routine ADT 08/14/19 22:42 Active Oxygen Therapy [RC] ASDIRECTED Care 08/14/19 19:29 Active Oxygen Therapy [RC] PRN Care 08/14/19 23:20 Ordered Peripheral IV Care [RC] . DIRECTED Care 08/14/19 19:27 Active RT Aerosol Therapy [RC] ASDIRECTED Care 08/14/19 19:27 Active RT Aerosol Therapy [RC] ASDIRECTED Care 08/14/19 20:23 Active RT Aerosol Therapy [RC] ASDIRECTED Care 08/14/19 21:19 Active RT Aerosol Therapy [RC] ASDIRECTED Care 08/14/19 23:21 Ordered RT Incentive Spirometry [RC] ASDIRECTED Care 08/14/19 23:24 Ordered VTE/DVT Education [RC] PER UNIT ROUTINE Care 08/14/19 23:20 Ordered Vital Signs [RC] Q4H Care 08/14/19 23:20 Ordered Respiratory Care Assess and Treatment [CONS] Routine Cons 08/14/19 23:19 Ordered Regular Diet [DIET] Diet 08/15/19 Breakfast Ordered CXR [Chest 2V] [CR] Stat Exams 08/14/19 19:27 Taken CULTURE BLOOD [BC] Stat Lab 08/14/19 19:45 Received Albuterol [Proventil Neb Soln] Med 08/14/19 23:19 Ordered 2.5 mg NEB Q2H PRN Albuterol/Ipratropium [DuoNeb 3.0-0.5 MG/3 ML] Med 08/14/19 23:30 Ordered 3 ml NEB Q6H Enoxaparin [Lovenox] Med 08/15/19 09:00 Ordered 40 mg SUBCUT DAILY Nicotine [Habitrol] Med 08/15/19 09:00 Ordered 21 mg TRDERM DAILY Sodium Chloride 0.9% [Normal Saline] 1,000 ml Med 08/14/19 19:30 Active IV ONETIME Sodium Chloride 0.9% [Saline Flush] Med 08/14/19 19:26 Active 10 ml FLUSH ASDIRECTED PRN amLODIPine Med 08/15/19 09:00 Ordered 2.5 mg PO DAILY cefTRIAXone [Rocephin] 1 gm Med 08/14/19 23:30 Ordered Sodium Chloride 0.9% [Normal Saline] 100 ml IV Q24H methylPREDNISolone Sod Succ [Solu-MEDROL] Med 08/15/19 06:00 Ordered 40 mg IVPUSH Q6H Peripheral IV Insertion Adult [OM.PC] Stat Oth 08/14/19 19:27 Ordered Resuscitation Status Routine Resus Stat 08/14/19 23:19 Ordered Medication Orders Albuterol (Proventil Neb Soln) 2.5 mg NEB Q2H PRN PRN Reason: Shortness Of Breath/wheezing Albuterol/Ipratropium (Duoneb 3.0-0.5 Mg/3 Ml) 3 ml NEB Q6H MARYURI Enoxaparin Sodium (Lovenox) 40 mg SUBCUT DAILY MARYURI Sodium Chloride (Normal Saline) 1,000 mls @ 999 mls/hr IV ONETIME MARYURI Last Admin: 08/14/19 19:37 Dose: 999 mls/hr Ceftriaxone Sodium 1 gm/ (Sodium Chloride) 100 mls @ 200 mls/hr IV Q24H MARYURI Methylprednisolone Sodium Succinate (Solu-Medrol) 40 mg IVPUSH Q6H MARYURI Nicotine (Habitrol) 21 mg TRDERM DAILY MARYURI Non-Formulary Medication (Amlodipine) 2.5 mg PO DAILY MARYURI Sodium Chloride (Saline Flush) 10 ml FLUSH ASDIRECTED PRN PRN Reason: Keep Vein Open Last Admin: 08/14/19 19:40 Dose: 10 ml Assessment/Plan Comment:: Assessment * COPD exacerbation with hypoxemia * Solu-Medrol 125 mg given in the emergency room. * Chest x-ray consistent with COPD. * Patient denies ever having formal pulmonary function tests. * On 2 L nasal cannula * Tobaccoism * Current smoker * Approximate 93-[id number]-iubo history * Hypertension * Patient states he was on 5 mg daily, but medication list states 2.5 mg. * Initial blood pressure slightly elevated 143/86 * Current incarceration at at the local assisted for last 1/2 weeks. * Symptoms started prior to incarceration * Minimal cough Plan * Admit to [facility] * Continue albuterol and ipratropium bromide-nebs every 6 hours * Albuterol nebulizer every 2 hours as needed * Incentive spirometry -consult RT * Continue IV steroids * Rocephin 1 g daily * Nicotine patch * Smoking cessation education performed. 3 minutes total. * VTE prophylaxis with Lovenox * CODE STATUS: Full code * Length of stay anticipated to be 2 to 3 days. - Mortality Measure Prognosis:: Good
[2019-08-15] MEDS: Albuterol/Ipratropium 3.0-0.5 MG/3 ML Neb Soln NEB SCH ×4 (02:39→20:46)
[2019-08-15] MEDS: methylPREDNISolone Sodium Succinate 40 MG/1 ML SDV IVPUSH SCH ×4 (06:08→23:42)
[2019-08-15] MEDS: amLODIPine 5 MG Tab PO SCH (08:19)
[2019-08-15] MEDS: Nicotine 21 MG/24 Hr Patch TRDERM SCH (08:22)
[2019-08-15] MEDS ORDERED: Enoxaparin 40 MG/0.4 ML Syringe SUBCUT SCH (09:00)
[2019-08-15] MEDS ORDERED: amLODIPine 2.5 MG Tab PO SCH (09:00)
--- NOTE | 2019-08-15 09:22 | CR ---
Chest: Two views of the chest were obtained. Comparison: Prior chest x-ray of 12/14/17. Diaphragms are flattened on the lateral view compatible with emphysematous change. No acute parenchymal change is appreciated. Heart size and mediastinum are normal. Bony structures are within normal limits for the patient's age. Impression: 1. Emphysematous change. 2. Nothing acute is appreciated. Diagnostic code #2 This report was dictated in [place] Standard Time
--- NOTE | 2019-08-15 09:26 | PCM.PN ---
- General Info Date of Service: 08/15/19 Subjective Update: Feeling better Shortness of breath improved - Patient Data Vitals - Most Recent: Last Vital Signs Temp 97.5 F 08/15/19 08:11 Pulse 80 08/15/19 08:11 Resp 16 08/15/19 08:11 BP 110/61 08/15/19 08:19 Pulse Ox 91 L 08/15/19 08:36 Weight - Most Recent: 78.245 kg - Exam General: Alert, Oriented, Cooperative, No Acute Distress HEENT: Pupils Equal, Pupils Reactive, Mucous Membr. Moist/[place] Neck: Supple, Trachea Midline, No JVD Lungs: Clear to Auscultation, Normal Respiratory Effort. No: Crackles, Rhonchi , Rub, Stridor, Wheezing Cardiovascular: Regular Rate, Regular Rhythm. No: Murmurs, Gallops, Rubs GI/Abdominal Exam: Normal Bowel Sounds, Soft, Non-Tender Back Exam: Normal Inspection, Full Range of Motion Extremities: Normal Inspection, Normal Range of Motion, Non-Tender, No Pedal Edema, Normal Capillary Refill Neurological: No New Focal Deficit Psy/Mental Status: Alert, Normal Affect, Normal Mood Sepsis Event Note - Evaluation Sepsis Screening Result: No Definite Risk - Focused Exam Vital Signs: Vital Signs Temp Pulse Pulse Resp BP BP Pulse Ox 08/15/19 08:36 08/15/19 08:19 110/61 08/15/19 08:11 97.5 F 80 16 110/61 92 L 08/15/19 07:11 85 88 L 08/15/19 06:26 85 90 L 08/15/19 05:35 98 87 L 08/15/19 04:03 97.9 F 81 18 107/79 93 L 08/15/19 02:40 08/14/19 23:17 97.5 F 92 20 120/74 94 L 08/14/19 22:49 94 22 H 116/75 93 L Pulse Ox Pulse Ox 08/15/19 08:36 91 L 08/15/19 08:19 08/15/19 08:11 08/15/19 07:11 08/15/19 06:26 08/15/19 05:35 08/15/19 04:03 08/15/19 02:40 92 L 08/14/19 23:17 08/14/19 22:49 Date Exam was Performed: 08/15/19 Time Exam was Performed: 12:23 - Problem List & Annotations (1) COPD exacerbation SNOMED Code(s): 060126291 Code(s): J44.1 - CHRONIC OBSTRUCTIVE PULMONARY DISEASE W (ACUTE) EXACERBATION Status: Acute Current Visit: Yes (2) Tobacco abuse disorder SNOMED Code(s): 142730216 Code(s): Z72.0 - TOBACCO USE Status: Chronic Priority: High Current Visit: No (3) Cough SNOMED Code(s): 72120333 Code(s): R05 - COUGH Status: Resolved Priority: Medium Current Visit: No (4) Hypoxemia SNOMED Code(s): 176935635 Code(s): R09.02 - HYPOXEMIA Status: Resolved Priority: High Current Visit: No - Problem List Review Problem List Initiated/Reviewed/Updated: Yes - Plan Plan:: COPD exacerbation Tobacco abuse disorder Cough Hypoxemia Chronic disease on home Anoro with as needed DuoNebs and Albuterol 3-4 exacerbations in the past year PaO2 54 on admission, not on home O2 1/2ppd x 35 years PLAN - Continue scheduled DuoNebs - F/U with pulmonary - Pneumovax 23 and Flu vaccine - Azithromycin x 5 days - Medrol pack Hypertension BP on admission 143/86 Pending reconciliation for Amlodipine dose PLAN - Reconcile home Meds once available PROPHYLAXIS DVT- encourage ambulation GI- not indicated CODE STATUS: Full code DISPOSITION: Admitted for scheduled nebulizations, discharge likely in AM if respiratory status continues to improve at current rate.
[2019-08-15] MEDS ORDERED: FLU Vacc QS2019-20(6MOS+)/PF 60 MCG/0.5 ML SYRINGE IM ONE (10:00)
[2019-08-15] MEDS ORDERED: Azithromycin 250 MG Tab PO ONE (11:00)
[2019-08-16] MEDS: Albuterol/Ipratropium 3.0-0.5 MG/3 ML Neb Soln NEB SCH ×2 (03:42→08:01)
[2019-08-16] MEDS: methylPREDNISolone Sodium Succinate 40 MG/1 ML SDV IVPUSH SCH ×2 (05:52→12:19)
[2019-08-16] MEDS: amLODIPine 5 MG Tab PO SCH (08:36)
[2019-08-16] MEDS ORDERED: Azithromycin 250 MG Tab PO SCH (09:00)
--- NOTE | 2019-08-16 11:21 | PCM.DCSUM1 ---
Discharge Summary - Hospital Course HPI Initial Comments: 59-year-old male with history of COPD presents to the emergency room with 2 weeks of shortness of breath. Patient states that approximately 2 weeks ago he developed a cough. 1-1/2 weeks ago he was placed in the custody at the local longterm. Over the last 2 weeks he has had progressive shortness of breath with dyspnea on exertion. He complains of worsening symptoms over the last couple of days. He has a tight chest with pleuritic chest pain, worse pain with deep inspiration in the middle of his chest that is nonradiating. Patient has approximately 64-lbdp-bhkv history and continues to smoke. He is not coughing as much and has not developed orthopnea or PND. He does have high blood pressure and takes Norvasc. In the emergency room he is found to have temperature of 99.4. Pulse ox initially was in the 80s and increased to 95% on 2 L. When oxygen was stopped it dropped back down into the 80s. Chest x-ray was done which showed hyperinflated lungs with emphysematous changes but no acute infiltrate. Patient was given multiple breathing treatments with albuterol in the emergency room and Solu-Medrol 125 mg. Patient was then admitted for failure to improve. Diagnosis: Stroke: No - Discharge Data Discharge Date: 08/16/19 Discharge Disposition: Home, Self-Care 01 Condition: Good - Referral to Home Health Primary Care Physician: Thompson Martines Jr, MD - Discharge Diagnosis/Problem(s) (1) COPD exacerbation SNOMED Code(s): 468291406 ICD Code: J44.1 - CHRONIC OBSTRUCTIVE PULMONARY DISEASE W (ACUTE) EXACERBATION Status: Acute (2) Tobacco abuse disorder SNOMED Code(s): 061802701 ICD Code: Z72.0 - TOBACCO USE Status: Chronic Priority: High - Patient Summary/Data Consults: Consultations 08/14/19 23:19 Respiratory Care Assess and Treatment [CONS] Routine Hospital Course: Patient was admitted on scheduled nebulization treatment as well as IV steroids and azithromycin. Oxygenation improved and patient with significant clinical improvement and back at baseline - Patient Instructions Diet: Heart Healthy Diet Activity: As Tolerated - Discharge Plan *PRESCRIPTION DRUG MONITORING PROGRAM REVIEWED*: No *COPY OF PRESCRIPTION DRUG MONITORING REPORT IN PATIENT JORGE: No Prescriptions/Med Rec: Budesonide [Pulmicort] 0.5 mg IH Q12HR #8 neb Albuterol/Ipratropium [DuoNeb 3.0-0.5 MG/3 ML] 3 ml NEB Q6HRRT #16 neb Azithromycin [Zithromax] 250 mg PO DAILY #4 tablet methylPREDNISolone [Medrol] 4 mg PO DAILY 6 Days #1 tab.ds.pk Nicotine [Habitrol] 21 mg TRDERM DAILY #30 patch Home Medications: Home Meds Umeclidinium Brm/Vilanterol Tr [Anoro Ellipta 62.5-25 MCG] 1 each IH DAILY 09/19 [History] Albuterol [Proair HFA] 2 puff INH Q4H PRN 11/13/17 [History] amLODIPine [Norvasc] 5 mg PO DAILY 08/14/19 [History] Albuterol/Ipratropium [DuoNeb 3.0-0.5 MG/3 ML] 3 ml NEB Q6HRRT #16 neb 08/16/19 [Rx] Azithromycin [Zithromax] 250 mg PO DAILY #4 tablet 08/16/19 [Rx] Budesonide [Pulmicort] 0.5 mg IH Q12HR #8 neb 08/16/19 [Rx] Nicotine [Habitrol] 21 mg TRDERM DAILY #30 patch 08/16/19 [Rx] methylPREDNISolone [Medrol] 4 mg PO DAILY 6 Days #1 tab.ds.pk 08/16/19 [Rx] Patient Handouts: Chronic Obstructive Pulmonary Disease, Steps to Quit Smoking Forms: ED Department Discharge Referrals: Hermelinda Brand MD [Ordering Only Provider] - 11/08/19 12:45 pm (Please arrive at [facility] main entrance at 11:30 MST (12:30 [employer]ITATION INSPECTOR) for your pulmonology appointment. 12:45 [employer]ITATION INSPECTOR chest xray 1:30 SANITATION INSPECTOR pulmonary function test 2:30 SANITATION INSPECTOR doctor appointment) Thompson Martines Jr, MD [Primary Care Provider] - 08/28/19 9:30 am (please attend the scheduled follow up with Dr. Martines) - Discharge Summary/Plan Comment DC Time >30 min.: Yes - General Info Date of Service: 08/16/19 Subjective Update: Feeling better Tolerating diet Ambulating BM today - Patient Data Vitals - Most Recent: Last Vital Signs Temp 97.5 F 08/16/19 08:33 Pulse 88 08/16/19 08:33 Resp 16 08/16/19 08:33 BP 109/81 08/16/19 08:36 Pulse Ox 90 L 08/16/19 08:33 Weight - Most Recent: 77.973 kg - Exam Quality Assessment: Reports: Supplemental Oxygen General: Reports: Alert, Oriented, Cooperative, No Acute Distress HEENT: Reports: Pupils Equal, Pupils Reactive, EOMI, Mucous Membr. Moist/[place] Neck: Reports: Supple, Trachea Midline, No JVD, No Thyromegaly, +2 Carotid Pulse wo Bruit. Denies: Lymphadenopathy Lungs: Reports: Clear to Auscultation, Normal Respiratory Effort, Other (mild end expiratory wheezing). Denies: Crackles, Rales Cardiovascular: Reports: Regular Rate, Regular Rhythm. Denies: Murmurs, Gallops , Rubs GI/Abdominal Exam: Normal Bowel Sounds, Soft, Non-Tender, No Organomegaly, No Distention Back Exam: Reports: Normal Inspection, Full Range of Motion. Denies: CVA Tenderness (L), CVA Tenderness (R) Extremities: Normal Inspection, Normal Range of Motion Neurological: Reports: No New Focal Deficit Psy/Mental Status: Reports: Alert, Normal Affect, Normal Mood
[2019-08-16] MEDS: Nicotine 21 MG/24 Hr Patch TRDERM SCH (12:18)
[2019-08-16 12:26] VITALS: BP 122/71; PULSE 85
== END 2019-08-16 15:13 | disposition home or self-care (01) ==
LOC: JD.ED 19:19 → JD.MS 22:45
PROVIDERS: ADMIT Family Medicine; ATTEND Family Medicine
DX: J44.1 Chronic obstructive pulmonary disease with (acute) exacerbation (principal); I10 Essential (primary) hypertension; M19.90 Unspecified osteoarthritis, unspecified site; F17.210 Nicotine dependence, cigarettes, uncomplicated
CPT/HCPCS: 36415; 36600; 71046; 80053; 82803; 83605; 85025; 86140; 87040; 90471; 90686; 94640; 94667; 94761; 99285; A9270; J0696; J1650; J2920; J2930; J7030; J7050; 99283; G0008; J7620-GY

== ENCOUNTER 2020-04-20 08:20 | Inpatient (IN) | payer BC ==
[2020-04-20] MEDS ORDERED: HYDROmorphone 0.5 MG/0.5 ML Syringe IVPUSH ONE (08:47)
[2020-04-20] MEDS ORDERED: Metoclopramide 10 MG/2 ML SDV IVPUSH ONE (08:47)
--- NOTE | 2020-04-20 08:51 | EDM.PDOC ---
ED HPI GENERAL MEDICAL PROBLEM - General Chief Complaint: Abdominal Pain Stated Complaint: ABDOMINAL PAIN Time Seen by Provider: 04/20/20 08:38 Source of Information: Reports: Patient History Limitations: Reports: No Limitations - History of Present Illness INITIAL COMMENTS - FREE TEXT/NARRATIVE: 59-year-old male presents to the ED with diffuse left lower quadrant abdominal pain of 3 days duration. He states it started on , April 17. He states it was mild that day and seemed to be somewhat better on Tuesday the . However pain started again yesterday afternoon and has become constant and much more severe. This morning he can barely walk due to pain in the left lower quadrant. He found riding in a motor vehicle very painful. It hurts to cough or to deep breathe. No previous similar problems. He has had no previous abdominal surgery. Last bowel movement was 2 days ago. Normal without blood. He did feel nauseated at the onset of illness 2 days ago. He never did vomit. He states he drank a bottle of water so far this morning. He has taken his normal inhalers for his COPD this morning. He has had some chills but no definite definite fever. He has lost his appetite as well for the last 24 to 36 hours. He denies any problems voiding. Onset: Gradual Onset Date: 04/17/20 Duration: Day(s):, Constant (Left lower quadrant abdominal pain.), Getting Worse Location: Reports: Abdomen (Left lower quadrant abdominal pain.). Denies: Generalized, Radiates to Quality: Reports: Ache, Other (Deep aching pain constant left lower quadrant which is irritated or becomes more sharp and stabbing with coughing sneezing or walking.) Severity: Moderate (Pain is rated as 4 out of 10 lying still 7-8 out of 10 with movement.) Improves with: Reports: Rest Worsens with: Reports: Other, Movement Context: Reports: Other (Spontaneous occurrence over the last 3 days.). Denies: Activity (Deep breathing coughing or riding in a motor vehicle made the pain worse as well.), Exercise, Lifting, Sick Contact, Trauma Associated Symptoms: Reports: Cough, cough w sputum (Cough from COPD.), Fever/Chills, Loss of Appetite (Chills but no defined fever.), Malaise, Nausea/Vomiting (Nausea without vomiting), Shortness of Breath. 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 (see below) (Only his prescribed medications.) Left Lower Abdomen Pain Score (Numeric/FACES): 8 - Related Data Allergies Allergy/AdvReac Type Severity Reaction Status Date / Time No Known Allergies Allergy Verified 04/20/20 08:38 Home Meds: Home Meds Albuterol [Proair HFA] 2 puff INH Q4H PRN 11/13/17 [History] Albuterol/Ipratropium [DuoNeb 3.0-0.5 MG/3 ML] 3 ml NEB Q6HRRT #16 neb 08/16/19 [Rx] Budesonide [Pulmicort] 0.5 mg IH Q12HR #8 neb 08/16/19 [Rx] Past Medical History - Past Health History Medical/Surgical History: Denies Medical/Surgical History Cardiovascular History: Reports: Hypertension, SOB on Exertion Respiratory History: Reports: COPD, SOB Genitourinary History: Reports: None Musculoskeletal History: Reports: Arthritis, Back Pain, Chronic Neurological History: Reports: None Psychiatric History: Reports: None Endocrine/Metabolic History: Reports: None Hematologic History: Reports: None Immunologic History: Reports: None Oncologic (Cancer) History: Reports: None Dermatologic History: Reports: None - Infectious Disease History Infectious Disease History: Reports: None - Past Surgical History HEENT Surgical History: Reports: Oral Surgery, Other (See Below) Other HEENT Surgeries/Procedures: 2007 Cardiovascular Surgical History: Reports: None Respiratory Surgical History: Reports: None GI Surgical History: Reports: Hernia, Inguinal Social & Family History - Family History Family Medical History: Noncontributory HEENT: Reports: None Cardiac: Reports: Heart Failure, Heart Murmur, Pacemaker, Other (See Below) Other Cardiac Family History: mother/father Neurological: Reports: Parkinson's, Other (See Below) Other Neurological Family History: father Oncologic: Reports: Prostate, Other (See Below) Other Oncologic Family History: father - Tobacco Use Smoking Status *Q: Current Every Day Smoker Years of Tobacco use: 40 Packs/Tins Daily: 1 - Caffeine Use Caffeine Use: Reports: None - Alcohol Use Alcohol Use History: Yes Days Per Week of Alcohol Use: 0 (And is currently on an alcohol monitoring bracelet right lower ankle. 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 Denies: Fever, Weight Loss HEENT: Reports: No Symptoms Respiratory: Reports: Shortness of Breath, Wheezing, Cough, Sputum. Denies: Pleuritic Chest Pain, Hemoptysis (Intermittent sputum production. He has chronic bronchitis related to his COPD.) Cardiovascular: Reports: Blood Pressure Problem, Dyspnea on Exertion. Denies: Claudication, Edema, Lightheadedness, Orthopnea Endocrine: Reports: Fatigue (Likely.) GI/Abdominal: Reports: Abdominal Pain (Complains chiefly of left lower quadrant abdominal pain which he is able to localize well with his own hand.), Decreased Appetite, Flatus, Nausea. Denies: Constipation, Diarrhea, Difficulty Swallowing, Distension, Hematemesis, Hematochezia, Melena, Mucous in Stool, Stool Incontinence, Vomiting (Mild nausea), Other : Reports: No Symptoms Musculoskeletal: Reports: No Symptoms Skin: Reports: No Symptoms, Other (Again is dark in color almost bronze formation. He has evidence of stasis dermatitis in both his upper extremities from chronic steroid use.) Neurological: Reports: No Symptoms. Denies: Confusion, Dizziness, Headache, Numbness Psychiatric: Reports: No Symptoms Hematologic/Lymphatic: Reports: No Symptoms Immunologic: Reports: No Symptoms ED EXAM, GI/ABD - Physical Exam Exam: See Below Exam Limited By: No Limitations General Appearance: Alert, WD/WN, Mild Distress, Other (Temperature is reported to be 36.7. He felt slightly warmer than this to palpation. Heart rate is 79 is sinus respiratory was 16 with O2 sats of 94% on room air. BP is 141/86.) Eyes: Bilateral: Normal Appearance (No blepharal pallor or scleral icterus.) Throat/Mouth: Normal Inspection, Normal Lips, Normal Oropharynx Head: Atraumatic, Normocephalic Neck: Normal Inspection, Supple, Non-Tender, Full Range of Motion. No: Carotid Bruit, Lymphadenopathy (L), Lymphadenopathy (R) Respiratory/Chest: No Respiratory Distress, Decreased Breath Sounds (Decreased breath sounds to both posterior lung sherwood.), Wheezing ( Scattered expiratory wheezes.). No: Lungs Clear, Normal Breath Sounds, Chest Non-Tender, Respiratory Distress Cardiovascular: Regular Rate, Rhythm, No Edema, No Gallop, No Murmur, No Rub. No: Normal Peripheral Pulses GI/Abdominal Exam: Normal Bowel Sounds, Soft, No Organomegaly, No Mass, Pelvis Stable, Distended (Mildly tympanitic to percussion particularly upper abdomen.), Guarding ( Clinically has peritonitis and an acute abdomen. Suspect diverticulitis), Rebound (Left lower quadrant of the abdomen), Tender (Patient has marked tenderness left lower quadrant of the abdomen with guarding and r ebound tenderness. He has a reverse Rovsing sign as well.), Other (No surgical scars) (Male) Exam: No Hernia Back Exam: Normal Inspection, Full Range of Motion. No: CVA Tenderness (L), CVA Tenderness (R) Extremities: Normal Inspection, Normal Range of Motion, Non-Tender, No Pedal Edema, Other (Patient has an alcohol monitor bracelet on his right lower ankle.) Neurological: Alert, Oriented, CN II-XII Intact, Normal Cognition Psychiatric: Normal Affect, Normal Mood Skin Exam: Warm, Dry, Intact, Normal Color, Other (He has a brawny discoloration to his skin particular the upper extremities I believe from chronic steroid use.) EKG INTERPRETATION EKG Date: 04/20/20 Time: 09:19 Rhythm: NSR Rate (Beats/Min): 75 Dorris: Normal P-Wave: Enlarged (Suspect by atrial hypertrophy.) QRS: Other (There is a nonspecific intraventricular conduction delay. Early R wave transition suspicious for septal hypertrophy pattern) ST-T: Other (Wave flattening in aVL nonspecific finding.) QT: Prolonged (Minimally prolonged.) EKG Interpretation Comments: Abnormal ECG Course - Vital Signs Last Recorded V/S: Last Vital Signs Temp 36.7 C 04/20/20 08:35 Pulse 79 04/20/20 08:35 Resp 16 04/20/20 08:35 BP 141/86 H 04/20/20 08:35 Pulse Ox 94 L 04/20/20 08:35 - Orders/Labs/Meds Orders: Active Orders 24 hr Category Date Time Status EKG Documentation Completion [RC] STAT Care 04/20/20 08:48 Active Chest 1V Frontal [CR] Stat Exams 04/20/20 08:48 Taken CULTURE BLOOD [BC] Stat Lab 04/20/20 09:08 Received CULTURE BLOOD [BC] Stat Lab 04/20/20 09:20 Received PATIENT RETYPE [BBK] Routine Lab 04/20/20 12:00 Ordered URINALYSIS W/MICROSCOPIC [UA W/MICROSCOPIC] [URIN] Stat Lab 04/20/20 08:49 Ordered Sodium Chloride 0.9% [Saline Flush] Med 04/20/20 10:11 Active 10 ml FLUSH ONETIME PRN Blood Culture x2 Reflex Set [OM.PC] Stat Oth 04/20/20 08:49 Ordered Medication Orders Acetaminophen (Tylenol) 650 mg PO Q4H PRN PRN Reason: Pain (Mild 1-3)/fever Albuterol (Proventil Neb Soln) 2.5 mg NEB Q2H PRN PRN Reason: Shortness Of Breath/wheezing Docusate Sodium (Colace) 100 mg PO BID PRN PRN Reason: Constipation Hydromorphone HCl (Dilaudid) 0.5 mg IVPUSH Q2H PRN PRN Reason: Pain (severe 7-10) Lactated Ringer's (Ringers, Lactated) 1,000 mls @ 75 mls/hr IV ASDIRECTED MARYURI Nicotine (Habitrol) 14 mg TRDERM DAILY [facility] Ondansetron HCl (Zofran Odt) 4 mg PO Q4H PRN PRN Reason: nausea, able to take PO Oxycodone HCl (Oxycodone) 5 mg PO Q4H PRN PRN Reason: Pain (moderate 4-6) Sodium Chloride (Saline Flush) 10 ml FLUSH ONETIME PRN PRN Reason: Keep Vein Open Last Admin: 04/20/20 10:39 Dose: 10 ml Documented by: RUKHSANA Labs: Laboratory Tests 04/20/20 04/20/20 04/20/20 Range/Units 09:08 09:08 09:08 WBC 9.34 H (4.23-9.07) K/mm3 RBC 5.57 (4.63-6.08) M/mm3 Hgb 18.0 H (13.7-17.5) gm/dl Hct 52.9 H (40.1-51.0) % MCV 95.0 H (79.0-92.2) fl MCH 32.3 H (25.7-32.2) pg MCHC 34.0 (32.2-35.5) g/dl RDW Std Deviation 45.0 H (35.1-43.9) fL Plt Count 144 L (163-337) K/mm3 MPV 12.6 H (9.4-12.3) fl Neutrophils % (Manual) 81 H (40-60) % Band Neutrophils % 0 (0-10) % Lymphocytes % (Manual) 8 L (20-40) % Atypical Lymphs % 0 % Monocytes % (Manual) 10 (2-10) % Eosinophils % (Manual) 1 (0.8-7.0) % Basophils % (Manual) 0 L (0.2-1.2) Platelet Estimate Adequate Poikilocytosis 1+ slight Anisocytosis 1+ slight RBC Morph Comment Abnormal PT 11.6 (9.7-12.0) SECONDS INR 1.09 APTT 27 (22-31) SECONDS Sodium 138 (136-145) mEq/L Potassium 4.0 (3.5-5.1) mEq/L Chloride 103 (98-107) mEq/L Carbon Dioxide 28 (21-32) mEq/L Anion Gap 11.0 (5-15) BUN 9 (7-18) mg/dL Creatinine 0.9 (0.7-1.3) mg/dL Est Cr Clr Drug Dosing 97.00 mL/min Estimated GFR (MDRD) > 60 (>60) mL/min BUN/Creatinine Ratio 10.0 L (14-18) Glucose 114 H (74-106) mg/dL Lactic Acid (0.4-2.0) mmol/L Calcium 9.5 (8.5-10.1) mg/dL Total Bilirubin 2.5 H (0.2-1.0) mg/dL AST 13 L (15-37) U/L ALT 23 (16-63) U/L Alkaline Phosphatase 94 (46-116) U/L C-Reactive Protein 6.0 H* (<1.0) mg/dL NT-Pro-B Natriuret Pep (0-125) pg/mL Total Protein 6.8 (6.4-8.2) g/dl Albumin 3.4 (3.4-5.0) g/dl Globulin 3.4 gm/dL Albumin/Globulin Ratio 1.0 (1-2) Lipase 73 (73-393) U/L SARS Virus RNA (PCR) (NEGATIVE) Blood Type Gel Antibody Screen 04/20/20 04/20/20 04/20/20 Range/Units 09:08 09:08 09:08 WBC (4.23-9.07) K/mm3 RBC (4.63-6.08) M/mm3 Hgb (13.7-17.5) gm/dl Hct (40.1-51.0) % MCV (79.0-92.2) fl MCH (25.7-32.2) pg MCHC (32.2-35.5) g/dl RDW Std Deviation (35.1-43.9) fL Plt Count (163-337) K/mm3 MPV (9.4-12.3) fl Neutrophils % (Manual) (40-60) % Band Neutrophils % (0-10) % Lymphocytes % (Manual) (20-40) % Atypical Lymphs % % Monocytes % (Manual) (2-10) % Eosinophils % (Manual) (0.8-7.0) % Basophils % (Manual) (0.2-1.2) Platelet Estimate Poikilocytosis Anisocytosis RBC Morph Comment PT (9.7-12.0) SECONDS INR APTT (22-31) SECONDS Sodium (136-145) mEq/L Potassium (3.5-5.1) mEq/L Chloride (98-107) mEq/L Carbon Dioxide (21-32) mEq/L Anion Gap (5-15) BUN (7-18) mg/dL Creatinine (0.7-1.3) mg/dL Est Cr Clr Drug Dosing mL/min Estimated GFR (MDRD) (>60) mL/min BUN/Creatinine Ratio (14-18) Glucose (74-106) mg/dL Lactic Acid 0.8 (0.4-2.0) mmol/L Calcium (8.5-10.1) mg/dL Total Bilirubin (0.2-1.0) mg/dL AST (15-37) U/L ALT (16-63) U/L Alkaline Phosphatase (46-116) U/L C-Reactive Protein (<1.0) mg/dL NT-Pro-B Natriuret Pep 125 (0-125) pg/mL Total Protein (6.4-8.2) g/dl Albumin (3.4-5.0) g/dl Globulin gm/dL Albumin/Globulin Ratio (1-2) Lipase (73-393) U/L SARS Virus RNA (PCR) (NEGATIVE) Blood Type A POSITIVE Gel Antibody Screen Negative 04/20/20 Range/Units 11:30 WBC (4.23-9.07) K/mm3 RBC (4.63-6.08) M/mm3 Hgb (13.7-17.5) gm/dl Hct (40.1-51.0) % MCV (79.0-92.2) fl MCH (25.7-32.2) pg MCHC (32.2-35.5) g/dl RDW Std Deviation (35.1-43.9) fL Plt Count (163-337) K/mm3 MPV (9.4-12.3) fl Neutrophils % (Manual) (40-60) % Band Neutrophils % (0-10) % Lymphocytes % (Manual) (20-40) % Atypical Lymphs % % Monocytes % (Manual) (2-10) % Eosinophils % (Manual) (0.8-7.0) % Basophils % (Manual) (0.2-1.2) Platelet Estimate Poikilocytosis Anisocytosis RBC Morph Comment PT (9.7-12.0) SECONDS INR APTT (22-31) SECONDS Sodium (136-145) mEq/L Potassium (3.5-5.1) mEq/L Chloride (98-107) mEq/L Carbon Dioxide (21-32) mEq/L Anion Gap (5-15) BUN (7-18) mg/dL Creatinine (0.7-1.3) mg/dL Est Cr Clr Drug Dosing mL/min Estimated GFR (MDRD) (>60) mL/min BUN/Creatinine Ratio (14-18) Glucose (74-106) mg/dL Lactic Acid (0.4-2.0) mmol/L Calcium (8.5-10.1) mg/dL Total Bilirubin (0.2-1.0) mg/dL AST (15-37) U/L ALT (16-63) U/L Alkaline Phosphatase (46-116) U/L C-Reactive Protein (<1.0) mg/dL NT-Pro-B Natriuret Pep (0-125) pg/mL Total Protein (6.4-8.2) g/dl Albumin (3.4-5.0) g/dl Globulin gm/dL Albumin/Globulin Ratio (1-2) Lipase (73-393) U/L SARS Virus RNA (PCR) Negative (NEGATIVE) Blood Type Gel Antibody Screen Meds: Medications Generic Name Dose Route Start Last Admin Trade Name Freq PRN Reason Stop Dose Admin Acetaminophen 650 mg 04/20/20 12:38 Tylenol PO Q4H PRN Pain (Mild 1-3)/fever Albuterol 2.5 mg 04/20/20 12:38 Proventil Neb Soln NEB Q2H PRN Shortness Of Breath/wheezing Docusate Sodium 100 mg 04/20/20 12:38 Colace PO BID PRN Constipation Hydromorphone HCl 0.5 mg 04/20/20 12:38 Dilaudid IVPUSH Q2H PRN Pain (severe 7-10) Lactated Ringer's 1,000 mls @ 75 mls/hr 04/20/20 12:45 Ringers, Lactated IV ASDIRECTED MARYURI Nicotine 14 mg 04/20/20 12:45 Habitrol TRDERM DAILY [facility] Ondansetron HCl 4 mg 04/20/20 12:38 Zofran Odt PO Q4H PRN nausea, able to take PO Oxycodone HCl 5 mg 04/20/20 12:38 Oxycodone PO Q4H PRN Pain (moderate 4-6) Sodium Chloride 10 ml 04/20/20 10:11 04/20/20 10:39 Saline Flush FLUSH 10 ml ONETIME PRN Administration Keep Vein Open Discontinued Medications Generic Name Dose Route Start Last Admin Trade Name Freq PRN Reason Stop Dose Admin Diatrizoate Meglum/Diatrizoate Sod 90 ml 04/20/20 10:11 04/20/20 10:39 Gastrografin 37% PO 04/20/20 10:12 90 ml ONETIME ONE Administration Hydromorphone HCl 0.5 mg 04/20/20 08:47 04/20/20 09:14 Dilaudid IVPUSH 04/20/20 08:48 0.5 mg ONETIME ONE Administration Dextrose/Sodium Chloride 1,000 mls @ 250 mls/hr 04/20/20 09:00 04/20/20 09:16 Dextrose 5%-Normal Saline IV 250 mls/hr ASDIRECTED MARYURI Administration Iopamidol 100 ml 04/20/20 10:11 04/20/20 10:39 Isovue-300 (61%) IVPUSH 04/20/20 10:12 100 ml ONETIME ONE Administration Metoclopramide HCl 7.5 mg 04/20/20 08:47 04/20/20 09:12 Reglan IVPUSH 04/20/20 08:48 7.5 mg ONETIME ONE Administration - Radiology Interpretation Free Text/Narrative:: 59-year-old male with significant COPD presents to the ED with gradually worsening left lower quadrant abdominal pain over the last 3 days. Pain is been particularly bad over the last 36 hours. Decreased oral intake for solids. He has drank a bottle of water this morning. He is aware of intermittent chills but no defined fever. He is able to localize the pain very well to the left lower quadrant over the sigmoid colon. He denies pain radiating through to his back. Of note he is guarding with rebound tenderness in the left lower quadrant and has a reverse Rovsing sign. Medically patient has acute diverticulitis. Plan IV D5 normal saline at 250 mils per hour. Given Dilaudid 0.5 mg IV and Reglan 7.5 mg IV for pain relief and nausea relief. Plan will be to have him start oral contrast in preparation for CT of the abdomen and pelvis to confirm clinical suspicion of diverticulitis. Routine labs ordered including serum lipase CRP and a urinalysis. 1 view of the chest will be done in case he needs to go to the OR. This will also rule out free air. - Re-Assessments/Exams Free Text/Narrative Re-Assessment/Exam: 04/20/20 09:55 Labs reveal a white count of 9.34. The differential is 81% neutrophils i.e. mild left shift no bands cells reported. Hemoglobin is 18.0 with a hematocrit of 52.9 suggesting moderate hemoconcentration. MCV is slightly elevated at 95.0 platelet count slightly low at 144,000. 04/20/20 10:01 reevaluation the patient states that his pain is much improved. And he in fact was sleeping when we entered the room. He has now finished 1 bottle of contrast and will be starting a second bottle of contrast. Tentatively he will be for CT at about 1030 hrs. chest x-ray done portably reveals hyperinflated lung sherwood. Prominent pulmonary arteries noted bilaterally. Mild in scar tissue in the right lung base. Cardiac silhouette is otherwise within normal limits. No pleural effusions no pneumothorax. 04/20/20 10:24 PT is 11.6 with an INR of 1.09 PTT is 27. Sodium 138 with a potassium of 4.0. Chloride is 103 with a bicarb of 28. Anion gap is normal at 11.0. BUN is 9 with a creatinine of 0.9. GFR is greater than 60 glucose is 114. Lactic acid is normal at 0.8. Calcium is 9.5. Total bilirubin is elevated at 2.5 AST is 13 ALT is 23 and alk phos days is 94. 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 C-reactive protein is elevated at 6.0. BNP is normal at 125. Total protein 6.8 with an albumin fraction of 3.4. Serum lipase is normal at 73. 04/20/20 11:26 CT of the abdomen pelvis was completed with oral and IV contrast. Visualized portions of the lungs reveal a small granuloma that is calcified in the right lung base measuring 8 mm. He does have a small hiatal hernia. Multiple small low-density lesions are noted within the right and left lobes of the liver. Largest low-density lesions have a Hounsfield unit measurement of cysts and smaller lesions are most likely due to additional cysts. Largest cyst measures 1.6 cm. Gallbladder contains no calcified gallstones. Pancreas shows no discrete abnormalities. Kidneys show symmetric contrast enhancement and no hydronephrosis or masses. Adrenal glands show no nodules. Spleen is enlarged with a length of 14.3 cm. Calcified granulomas are noted within the spleen. There appears to be a small amount of subcapsular fluid being seen as well as a small amount of extra capsular fluid around the spleen. Within the pelvis there is fluid being seen which has Hounsfield unit measurements of blood. Minimal low density areas noted within the anterior tip of the liver possibly due to a small intrasplenic hematoma measuring about 1 cm. Aorta shows areas of ectasia with atherosclerotic calcification. No aneurysm is seen. Atherosclerotic calcification continues down into the iliac vessels. No pelvic mass or adenopathy is seen. Appendix is not visualized with any degree of certainty. Delayed images show contrast within both distal ureters as well as the contrast within the bladder. Bone window settings were reviewed which shows disc space narrowing and vacuum phenomena within the L5-S1 disc space. Mild scattered degenerative apophyseal changes noted throughout the lumbar spine. The patient on further questioning has no history of trauma to his left ribs or thorax. He states the pain came on acutely as he was leaving the workplace on and was quite intense for a period of time and then he had to have a bowel movement suddenly. States after this the pain seemed to dissipate for about a day before it came back and then again is gradually worsened primarily in the left lower quadrant of the abdomen. He therefore appears to have suffered spontaneous rupture of a vessel on the surface of the spleen. His labs reveal that he is hemoconcentrated and he admits he is not been able to eat or drink much for the last couple of days. Plan: I will consult on-call surgeon Dr. Vegas. It appears the patient will likely require admission to the hospital for least monitoring to make sure that he is not done continue active bleeding. 04/20/20 11:58 Dr Vegas is here and is seeing the patient in consultation at this time. 04/20/20 12:13 Dr. Vegas agrees the patient will be admitted to the hospital for observation status for the next couple of days for hemoglobin monitoring to make sure that he is stable from spontaneous rupture of his spleen. It is unclear as to the etiology of spontaneous rupture. I suspect portal hypertension may have had some role in spontaneous splenic rupture. 04/20/20 12:48 over 19 screen is negative. Departure - Departure Time of Disposition: 12:48 Disposition: Admitted As Inpatient 66 Condition: Fair Clinical Impression: Spontaneous rupture of spleen, COPD (chronic obstructive pulmonary disease) with acute bronchitis Abdominal pain Qualifiers: Abdominal location: left lower quadrant Qualified Code(s): R10.32 - Left lower quadrant pain - Discharge Information *PRESCRIPTION DRUG MONITORING PROGRAM REVIEWED*: Not Applicable *COPY OF PRESCRIPTION DRUG MONITORING REPORT IN PATIENT JORGE: Not Applicable Sepsis Event Note (ED) - Evaluation Sepsis Screening Result: No Definite Risk - Focused Exam Vital Signs: Vital Signs Temp Pulse Resp BP Pulse Ox 04/20/20 08:35 36.7 C 79 16 141/86 H 94 L - My Orders Last 24 Hours: My Active Orders 04/20/20 08:48 EKG Documentation Completion [RC] STAT Chest 1V Frontal [CR] Stat 04/20/20 08:49 URINALYSIS W/MICROSCOPIC [UA W/MICROSCOPIC] [URIN] Stat Blood Culture x2 Reflex Set [OM.PC] Stat 04/20/20 09:08 CULTURE BLOOD [BC] Stat 04/20/20 09:20 CULTURE BLOOD [BC] Stat 04/20/20 10:11 Sodium Chloride 0.9% [Saline Flush] 10 ml FLUSH ONETIME PRN 04/20/20 12:00 PATIENT RETYPE [BBK] Routine - Assessment/Plan Last 24 Hours: My Active Orders 04/20/20 08:48 EKG Documentation Completion [RC] STAT Chest 1V Frontal [CR] Stat 04/20/20 08:49 URINALYSIS W/MICROSCOPIC [UA W/MICROSCOPIC] [URIN] Stat Blood Culture x2 Reflex Set [OM.PC] Stat 04/20/20 09:08 CULTURE BLOOD [BC] Stat 04/20/20 09:20 CULTURE BLOOD [BC] Stat 04/20/20 10:11 Sodium Chloride 0.9% [Saline Flush] 10 ml FLUSH ONETIME PRN 04/20/20 12:00 PATIENT RETYPE [BBK] Routine
[2020-04-20] MEDS ORDERED: Dextrose 5%-0.9% NaCl 1,000 ML IV SCH (09:00)
[2020-04-20] MEDS ORDERED: Iopamidol 612 MG/ML 100 ML Bottle IVPUSH ONE (10:11)
[2020-04-20] MEDS ORDERED: Diatrizoate Meglumine/Diatrizoate Sodium 37% 120 ML Bottle PO ONE (10:11)
[2020-04-20] MEDS ORDERED: Sodium Chloride 0.9% 10 ML Syringe FLUSH PRN (10:11)
--- NOTE | 2020-04-20 10:58 | CT ---
CT abdomen and pelvis Technique: Multiple axial sections were obtained from above the dome of the diaphragm inferiorly through the pubic symphysis. Intravenous contrast and oral contrast has been given. Reconstructed coronal and sagittal images were obtained. Delayed images were also obtained through the bladder. Comparison: No prior abdominal imaging is available. Findings: Visualized lung bases shows a calcified granuloma within the right lung base measuring 8 mm. Multiple small low density lesions are noted within the right and left lobes of the liver. Largest low density lesions have Hounsfield unit measurements of cysts and smaller lesions are most likely due to additional cysts. Largest cyst measures about 1.6 cm. Gallbladder contains no calcified gallstones. Pancreas shows no discrete abnormality. Kidneys show symmetric contrast enhancement with no hydronephrosis or mass. Adrenal glands show no nodule. Spleen is enlarged with length of 14.3 cm. Calcified granulomas are noted within the spleen. There appears to be a small amount of subcapsular fluid being seen as well as a small amount of extracapsular fluid. Within the pelvis there is fluid being seen which has Hounsfield unit measurements of blood. Minimal low density area is noted within the anterior tip of the livere possibly due to small intrasplenic hematoma measuring about 1 cm. Aorta shows areas of ectasia with atherosclerotic calcification. No aneurysm is seen. Atherosclerotic calcification continues into the iliac vessels. No pelvic mass or adenopathy is seen. Appendix is not visualized with certainty. Delayed images shows contrast within both distal ureters as well as contrast within the bladder. Bone window settings were reviewed which shows disc space narrowing and vacuum phenomena within the L5-S1 discs. Mild scattered degenerative apophyseal change is noted with scattered anterior osteophytes. Impression: 1. Mild amount of free fluid within the pelvis believed to represent blood. 2. Mildly enlarged spleen at 14.3 cm. Small amount of subcapsular fluid around the spleen as well as a small amount of extracapsular fluid seen around the spleen. Possible small hematoma within the anterior spleen measuring 1 cm. This blood within the pelvis most likely relates to the splenic findings. 3. Other findings which are nonacute as described above. Diagnostic code #5 This report was dictated in MDT
--- NOTE | 2020-04-20 12:22 | PCM.HP.2 ---
H&P History of Present Illness - General Date of Service: 04/20/20 Admit Problem/Dx: Admission Diagnosis/Problem Admission Diagnosis/Problem Abdominal pain Source of Information: Patient History Limitations: Reports: No Limitations - History of Present Illness Initial Comments - Free Text/Narative: Patient presents with left sided abdominal pain. Started acutely on afternoon 04/17. Left sided, severe, non-radiating. No fevers or chills. He has a BM that day and later the pain became more tolerable. He worked Tuesday but Tuesday then pain became more severe and started radiating to the left lower abdomen. He decided to come to the ED for care. No fever or chills, No history of abdominal trauma in the recent weeks. He has had 2 DUIs therefore has an alcohol monitoring bracelet. 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 In the ED, WBC normal, Hgb 18, Inr normal, CT shows small splenic hematoma and small pelvic fluid consistent with blood. Onset of Symptoms: Reports: Gradual Duration of Symptoms: Reports: Day(s): (4), Getting Worse Location: Reports: Abdomen (LUQ) Quality: Reports: Sharp Severity: Severe Improves with: Reports: Immobilization Worsens with: Reports: Movement Left Lower Abdomen Pain Score (Numeric/FACES): 8 - Related Data Allergies/Adverse Reactions: Allergies Allergy/AdvReac Type Severity Reaction Status Date / Time No Known Allergies Allergy Verified 04/20/20 08:38 Home Medications: Home Meds Albuterol [Proair HFA] 2 puff INH Q4H PRN 11/13/17 [History] Albuterol/Ipratropium [DuoNeb 3.0-0.5 MG/3 ML] 3 ml NEB Q6HRRT #16 neb 08/16/19 [Rx] Budesonide [Pulmicort] 0.5 mg IH Q12HR #8 neb 08/16/19 [Rx] Past Medical History - Past Health History Medical/Surgical History: Denies Medical/Surgical History Cardiovascular History: Reports: Hypertension, SOB on Exertion Respiratory History: Reports: COPD, SOB Genitourinary History: Reports: None Musculoskeletal History: Reports: Arthritis, Back Pain, Chronic Neurological History: Reports: None Psychiatric History: Reports: None Endocrine/Metabolic History: Reports: None Hematologic History: Reports: None Immunologic History: Reports: None Oncologic (Cancer) History: Reports: None Dermatologic History: Reports: None - Infectious Disease History Infectious Disease History: Reports: None - Past Surgical History HEENT Surgical History: Reports: Oral Surgery, Other (See Below) Other HEENT Surgeries/Procedures: 2008 Cardiovascular Surgical History: Reports: None Respiratory Surgical History: Reports: None GI Surgical History: Reports: Hernia, Inguinal Social & Family History - Family History Family Medical History: Noncontributory HEENT: Reports: None Cardiac: Reports: Heart Failure, Heart Murmur, Pacemaker, Other (See Below) Other Cardiac Family History: mother/father Neurological: Reports: Parkinson's, Other (See Below) Other Neurological Family History: father Oncologic: Reports: Prostate, Other (See Below) Other Oncologic Family History: father - Tobacco Use Smoking Status *Q: Current Every Day Smoker Years of Tobacco use: 40 Packs/Tins Daily: 1 - Caffeine Use Caffeine Use: Reports: None - Alcohol Use Days Per Week of Alcohol Use: 0 (And is currently on an alcohol monitoring bracelet right lower ankle. Patient is states he has had the ankle brace alone for 2 weeks and is scheduled to wear it for the next 2 years due to recurrent DUI offenses.) - Recreational Drug Use Recreational Drug Use: No - Living Situation & Occupation Living situation: Reports: , Alone Occupation: Employed ([employer]) H&P Review of Systems - Review of Systems: Review Of Systems: See Below General: Reports: No Symptoms HEENT: Reports: No Symptoms Pulmonary: Reports: Cough (COPD) Cardiovascular: Reports: No Symptoms Gastrointestinal: Reports: Abdominal Pain Genitourinary: Reports: No Symptoms Musculoskeletal: Reports: No Symptoms Skin: Reports: No Symptoms Psychiatric: Reports: No Symptoms Neurological: Reports: No Symptoms Exam - Exam Exam: See Below - Vital Signs Vital Signs: Last Vital Signs Temp 98.1 F 04/20/20 08:35 Pulse 79 04/20/20 08:35 Resp 16 04/20/20 08:35 BP 141/86 H 04/20/20 08:35 Pulse Ox 94 L 04/20/20 08:35 Weight: 81.647 kg - Exam General: Alert, Oriented, Cooperative Lungs: Clear to Auscultation, Normal Respiratory Effort, Crackles (in bilateral lower lobes) Cardiovascular: Regular Rate, Regular Rhythm, Normal S1, Normal S2 GI/Abdominal Exam: Soft, No Organomegaly, No Distention, No Abnormal Bruit, No Mass, Tender (left upper quadrant and left flank) - Patient Data Lab Results Last 24 hrs: Laboratory Results - last 24 hr 04/20/20 04/20/20 04/20/20 Range/Units 09:08 09:08 09:08 WBC 9.34 H (4.23-9.07) K/mm3 RBC 5.57 (4.63-6.08) M/mm3 Hgb 18.0 H (13.7-17.5) gm/dl Hct 52.9 H (40.1-51.0) % MCV 95.0 H (79.0-92.2) fl MCH 32.3 H (25.7-32.2) pg MCHC 34.0 (32.2-35.5) g/dl RDW Std Deviation 45.0 H (35.1-43.9) fL Plt Count 144 L (163-337) K/mm3 MPV 12.6 H (9.4-12.3) fl Neutrophils % (Manual) 81 H (40-60) % Band Neutrophils % 0 (0-10) % Lymphocytes % (Manual) 8 L (20-40) % Atypical Lymphs % 0 % Monocytes % (Manual) 10 (2-10) % Eosinophils % (Manual) 1 (0.8-7.0) % Basophils % (Manual) 0 L (0.2-1.2) Platelet Estimate Adequate Poikilocytosis 1+ slight Anisocytosis 1+ slight RBC Morph Comment Abnormal PT 11.6 (9.7-12.0) SECONDS INR 1.09 APTT 27 (22-31) SECONDS Sodium 138 (136-145) mEq/L Potassium 4.0 (3.5-5.1) mEq/L Chloride 103 (98-107) mEq/L Carbon Dioxide 28 (21-32) mEq/L Anion Gap 11.0 (5-15) BUN 9 (7-18) mg/dL Creatinine 0.9 (0.7-1.3) mg/dL Est Cr Clr Drug Dosing 97.00 mL/min Estimated GFR (MDRD) > 60 (>60) mL/min BUN/Creatinine Ratio 10.0 L (14-18) Glucose 114 H (74-106) mg/dL Lactic Acid (0.4-2.0) mmol/L Calcium 9.5 (8.5-10.1) mg/dL Total Bilirubin 2.5 H (0.2-1.0) mg/dL AST 13 L (15-37) U/L ALT 23 (16-63) U/L Alkaline Phosphatase 94 (46-116) U/L C-Reactive Protein 6.0 H* (<1.0) mg/dL NT-Pro-B Natriuret Pep (0-125) pg/mL Total Protein 6.8 (6.4-8.2) g/dl Albumin 3.4 (3.4-5.0) g/dl Globulin 3.4 gm/dL Albumin/Globulin Ratio 1.0 (1-2) Lipase 73 (73-393) U/L Blood Type 04/20/20 04/20/20 04/20/20 Range/Units 09:08 09:08 09:08 WBC (4.23-9.07) K/mm3 RBC (4.63-6.08) M/mm3 Hgb (13.7-17.5) gm/dl Hct (40.1-51.0) % MCV (79.0-92.2) fl MCH (25.7-32.2) pg MCHC (32.2-35.5) g/dl RDW Std Deviation (35.1-43.9) fL Plt Count (163-337) K/mm3 MPV (9.4-12.3) fl Neutrophils % (Manual) (40-60) % Band Neutrophils % (0-10) % Lymphocytes % (Manual) (20-40) % Atypical Lymphs % % Monocytes % (Manual) (2-10) % Eosinophils % (Manual) (0.8-7.0) % Basophils % (Manual) (0.2-1.2) Platelet Estimate Poikilocytosis Anisocytosis RBC Morph Comment PT (9.7-12.0) SECONDS INR APTT (22-31) SECONDS Sodium (136-145) mEq/L Potassium (3.5-5.1) mEq/L Chloride (98-107) mEq/L Carbon Dioxide (21-32) mEq/L Anion Gap (5-15) BUN (7-18) mg/dL Creatinine (0.7-1.3) mg/dL Est Cr Clr Drug Dosing mL/min Estimated GFR (MDRD) (>60) mL/min BUN/Creatinine Ratio (14-18) Glucose (74-106) mg/dL Lactic Acid 0.8 (0.4-2.0) mmol/L Calcium (8.5-10.1) mg/dL Total Bilirubin (0.2-1.0) mg/dL AST (15-37) U/L ALT (16-63) U/L Alkaline Phosphatase (46-116) U/L C-Reactive Protein (<1.0) mg/dL NT-Pro-B Natriuret Pep 125 (0-125) pg/mL Total Protein (6.4-8.2) g/dl Albumin (3.4-5.0) g/dl Globulin gm/dL Albumin/Globulin Ratio (1-2) Lipase (73-393) U/L Blood Type A POSITIVE Result Diagrams: 04/20/20 09:08 04/20/20 09:08 Sepsis Event Note - Evaluation Sepsis Screening Result: No Definite Risk - Focused Exam Vital Signs: Vital Signs Temp Pulse Resp BP Pulse Ox 04/20/20 08:35 98.1 F 79 16 141/86 H 94 L Problem List Initiated/Reviewed/Updated: No Orders Last 24hrs: Active Orders 24 hr Category Date Time Status Admission Status [Patient Status] [ADT] Routine ADT 04/20/20 12:15 Active EKG Documentation Completion [RC] STAT Care 04/20/20 08:48 Active Chest 1V Frontal [CR] Stat Exams 04/20/20 08:48 Taken CORONAVIRUS COVID-19 KALIN [MOLEC] Stat Lab 04/20/20 11:30 Received CULTURE BLOOD [BC] Stat Lab 04/20/20 09:08 Received CULTURE BLOOD [BC] Stat Lab 04/20/20 09:20 Received MAGNESIUM [CHEM] AM Lab 04/21/20 05:11 Ordered MAGNESIUM [CHEM] AM Lab 04/22/20 05:11 Ordered MAGNESIUM [CHEM] AM Lab 04/23/20 05:11 Ordered PATIENT RETYPE [BBK] Routine Lab 04/20/20 12:00 Ordered TYPE AND SCREEN [BBK] Stat Lab 04/20/20 09:08 Results URINALYSIS W/MICROSCOPIC [UA W/MICROSCOPIC] [URIN] Stat Lab 04/20/20 08:49 Ordered Dextrose 5%-0.9% NaCl [Dextrose 5%-Normal Saline] 1,000 Med 04/20/20 09:00 Active ml IV ASDIRECTED Sodium Chloride 0.9% [Saline Flush] Med 04/20/20 10:11 Active 10 ml FLUSH ONETIME PRN Blood Culture x2 Reflex Set [OM.PC] Stat Oth 04/20/20 08:49 Ordered Medication Orders Dextrose/Sodium Chloride (Dextrose 5%-Normal Saline) 1,000 mls @ 250 mls/hr IV ASDIRECTED MARYURI Last Admin: 04/20/20 09:16 Dose: 250 mls/hr Documented by: SHMUEL Sodium Chloride (Saline Flush) 10 ml FLUSH ONETIME PRN PRN Reason: Keep Vein Open Last Admin: 04/20/20 10:39 Dose: 10 ml Documented by: RUKHSANA Assessment/Plan Comment:: Patient has spontaneous splenic injury. Source of injury is unclear but CT does now show any splenic cysts except calcified granulomas. Plan - Admit patient - Q8H H/H, currently Hgb is 18 - IVF and Clear liquid diet - Pain control - If Hgb drops to less than 12, we may consider splenectomy.
[2020-04-20] MEDS ORDERED: Docusate Sodium 100 MG Cap PO PRN (12:38)
[2020-04-20] MEDS ORDERED: Acetaminophen 325 MG Tab PO PRN (12:38)
[2020-04-20] MEDS ORDERED: HYDROmorphone 0.5 MG/0.5 ML Syringe IVPUSH PRN (12:38)
[2020-04-20] MEDS ORDERED: Albuterol 0.083% 2.5 MG/3 ML Neb Soln NEB PRN (12:38)
[2020-04-20] MEDS ORDERED: Ondansetron 4 MG Tab.DIS PO PRN (12:38)
[2020-04-20] MEDS: oxyCODONE 5 MG Tab PO PRN ×2 (13:19→21:11)
[2020-04-20] MEDS: Nicotine 14 MG/24 Hr Patch TRDERM SCH (13:21)
[2020-04-20] MEDS: Lactated Ringers 1,000 ML IV SCH (13:27)
--- NOTE | 2020-04-20 13:34 | CR ---
Chest: Portable view of the chest was obtained. Comparison: Previous chest x-ray of 12/14/17. Heart size and mediastinum are normal. Lungs are clear with no acute parenchymal change. Bony structures are grossly intact. Impression: 1. Nothing acute is seen on portable chest x-ray. Diagnostic code #2 This report was dictated in MDT
[2020-04-20] MEDS ORDERED: Albuterol 6.7 GM Inhaler INH PRN (16:48)
[2020-04-20] MEDS: Albuterol/Ipratropium 3.0-0.5 MG/3 ML Neb Soln NEB SCH (20:52)
[2020-04-21] MEDS: Lactated Ringers 1,000 ML IV SCH ×2 (02:54→18:05)
[2020-04-21] MEDS: Albuterol/Ipratropium 3.0-0.5 MG/3 ML Neb Soln NEB SCH ×4 (02:56→20:25)
[2020-04-21] MEDS: oxyCODONE 5 MG Tab PO PRN ×2 (05:52→14:55)
--- NOTE | 2020-04-21 07:53 | PCM.PN ---
- General Info Date of Service: 04/21/20 Admission Dx/Problem (Free Text): Admission Diagnosis/Problem Admission Diagnosis/Problem Abdominal pain Subjective Update: Patient continued to have left sided abdominal pain. No nausea or vomiting. Hgb has stayed stable in the 16s x 2. Has been voiding spontaneously. Functional Status: Reports: Pain Controlled, Urinating - Review of Systems General: Reports: No Symptoms HEENT: Reports: No Symptoms Pulmonary: Reports: No Symptoms Cardiovascular: Reports: No Symptoms Gastrointestinal: Reports: Abdominal Pain (Left flank) Genitourinary: Reports: No Symptoms Musculoskeletal: Reports: No Symptoms Skin: Reports: No Symptoms Neurological: Reports: No Symptoms Psychiatric: Reports: No Symptoms - Patient Data Vitals - Most Recent: Last Vital Signs Temp 99.0 F 04/21/20 03:35 Pulse 97 04/21/20 03:35 Resp 20 04/21/20 03:35 BP 137/86 04/21/20 03:35 Pulse Ox 86 L 04/21/20 03:35 Weight - Most Recent: 74.797 kg I&O - Last 24 Hours: Intake & Output 04/20/20 04/21/20 04/21/20 22:59 06:59 14:59 Intake Total 886 1625 Output Total 450 750 Balance 436 875 Lab Results Last 24 Hours: Laboratory Results - last 24 hr 04/20/20 04/20/20 04/20/20 Range/Units 09:08 09:08 09:08 WBC 9.34 H (4.23-9.07) K/mm3 RBC 5.57 (4.63-6.08) M/mm3 Hgb 18.0 H (13.7-17.5) gm/dl Hct 52.9 H (40.1-51.0) % MCV 95.0 H (79.0-92.2) fl MCH 32.3 H (25.7-32.2) pg MCHC 34.0 (32.2-35.5) g/dl RDW Std Deviation 45.0 H (35.1-43.9) fL Plt Count 144 L (163-337) K/mm3 MPV 12.6 H (9.4-12.3) fl Neutrophils % (Manual) 81 H (40-60) % Band Neutrophils % 0 (0-10) % Lymphocytes % (Manual) 8 L (20-40) % Atypical Lymphs % 0 % Monocytes % (Manual) 10 (2-10) % Eosinophils % (Manual) 1 (0.8-7.0) % Basophils % (Manual) 0 L (0.2-1.2) Platelet Estimate Adequate Poikilocytosis 1+ slight Anisocytosis 1+ slight RBC Morph Comment Abnormal PT 11.6 (9.7-12.0) SECONDS INR 1.09 APTT 27 (22-31) SECONDS Sodium 138 (136-145) mEq/L Potassium 4.0 (3.5-5.1) mEq/L Chloride 103 (98-107) mEq/L Carbon Dioxide 28 (21-32) mEq/L Anion Gap 11.0 (5-15) BUN 9 (7-18) mg/dL Creatinine 0.9 (0.7-1.3) mg/dL Est Cr Clr Drug Dosing 97.00 mL/min Estimated GFR (MDRD) > 60 (>60) mL/min BUN/Creatinine Ratio 10.0 L (14-18) Glucose 114 H (74-106) mg/dL Lactic Acid (0.4-2.0) mmol/L Calcium 9.5 (8.5-10.1) mg/dL Total Bilirubin 2.5 H (0.2-1.0) mg/dL AST 13 L (15-37) U/L ALT 23 (16-63) U/L Alkaline Phosphatase 94 (46-116) U/L C-Reactive Protein 6.0 H* (<1.0) mg/dL NT-Pro-B Natriuret Pep (0-125) pg/mL Total Protein 6.8 (6.4-8.2) g/dl Albumin 3.4 (3.4-5.0) g/dl Globulin 3.4 gm/dL Albumin/Globulin Ratio 1.0 (1-2) Lipase 73 (73-393) U/L Urine Color (Yellow) Urine Appearance (Clear) Urine pH (5.0-8.0) Ur Specific [place] (1.005-1.030) Urine Protein (Negative) Urine Glucose (UA) (Negative) Urine Ketones (Negative) Urine Occult Blood (Negative) Urine Nitrite (Negative) Urine Bilirubin (Negative) Urine Urobilinogen (0.2-1.0) Ur Leukocyte Esterase (Negative) Urine RBC (0-5) /hpf Urine WBC (0-5) /hpf Ur Squamous Epith Cells (0-5) /hpf Urine Bacteria (FEW) /hpf Urine Mucus (FEW) /hpf SARS Virus RNA (PCR) (NEGATIVE) Blood Type Gel Antibody Screen 04/20/20 04/20/20 04/20/20 Range/Units 09:08 09:08 09:08 WBC (4.23-9.07) K/mm3 RBC (4.63-6.08) M/mm3 Hgb (13.7-17.5) gm/dl Hct (40.1-51.0) % MCV (79.0-92.2) fl MCH (25.7-32.2) pg MCHC (32.2-35.5) g/dl RDW Std Deviation (35.1-43.9) fL Plt Count (163-337) K/mm3 MPV (9.4-12.3) fl Neutrophils % (Manual) (40-60) % Band Neutrophils % (0-10) % Lymphocytes % (Manual) (20-40) % Atypical Lymphs % % Monocytes % (Manual) (2-10) % Eosinophils % (Manual) (0.8-7.0) % Basophils % (Manual) (0.2-1.2) Platelet Estimate Poikilocytosis Anisocytosis RBC Morph Comment PT (9.7-12.0) SECONDS INR APTT (22-31) SECONDS Sodium (136-145) mEq/L Potassium (3.5-5.1) mEq/L Chloride (98-107) mEq/L Carbon Dioxide (21-32) mEq/L Anion Gap (5-15) BUN (7-18) mg/dL Creatinine (0.7-1.3) mg/dL Est Cr Clr Drug Dosing mL/min Estimated GFR (MDRD) (>60) mL/min BUN/Creatinine Ratio (14-18) Glucose (74-106) mg/dL Lactic Acid 0.8 (0.4-2.0) mmol/L Calcium (8.5-10.1) mg/dL Total Bilirubin (0.2-1.0) mg/dL AST (15-37) U/L ALT (16-63) U/L Alkaline Phosphatase (46-116) U/L C-Reactive Protein (<1.0) mg/dL NT-Pro-B Natriuret Pep 125 (0-125) pg/mL Total Protein (6.4-8.2) g/dl Albumin (3.4-5.0) g/dl Globulin gm/dL Albumin/Globulin Ratio (1-2) Lipase (73-393) U/L Urine Color (Yellow) Urine Appearance (Clear) Urine pH (5.0-8.0) Ur Specific [place] (1.005-1.030) Urine Protein (Negative) Urine Glucose (UA) (Negative) Urine Ketones (Negative) Urine Occult Blood (Negative) Urine Nitrite (Negative) Urine Bilirubin (Negative) Urine Urobilinogen (0.2-1.0) Ur Leukocyte Esterase (Negative) Urine RBC (0-5) /hpf Urine WBC (0-5) /hpf Ur Squamous Epith Cells (0-5) /hpf Urine Bacteria (FEW) /hpf Urine Mucus (FEW) /hpf SARS Virus RNA (PCR) (NEGATIVE) Blood Type A POSITIVE Gel Antibody Screen Negative 04/20/20 04/20/20 04/20/20 Range/Units 11:30 13:00 20:00 WBC (4.23-9.07) K/mm3 RBC (4.63-6.08) M/mm3 Hgb 16.8 (13.7-17.5) gm/dl Hct 47.7 (40.1-51.0) % MCV (79.0-92.2) fl MCH (25.7-32.2) pg MCHC (32.2-35.5) g/dl RDW Std Deviation (35.1-43.9) fL Plt Count (163-337) K/mm3 MPV (9.4-12.3) fl Neutrophils % (Manual) (40-60) % Band Neutrophils % (0-10) % Lymphocytes % (Manual) (20-40) % Atypical Lymphs % % Monocytes % (Manual) (2-10) % Eosinophils % (Manual) (0.8-7.0) % Basophils % (Manual) (0.2-1.2) Platelet Estimate Poikilocytosis Anisocytosis RBC Morph Comment PT (9.7-12.0) SECONDS INR APTT (22-31) SECONDS Sodium (136-145) mEq/L Potassium (3.5-5.1) mEq/L Chloride (98-107) mEq/L Carbon Dioxide (21-32) mEq/L Anion Gap (5-15) BUN (7-18) mg/dL Creatinine (0.7-1.3) mg/dL Est Cr Clr Drug Dosing mL/min Estimated GFR (MDRD) (>60) mL/min BUN/Creatinine Ratio (14-18) Glucose (74-106) mg/dL Lactic Acid (0.4-2.0) mmol/L Calcium (8.5-10.1) mg/dL Total Bilirubin (0.2-1.0) mg/dL AST (15-37) U/L ALT (16-63) U/L Alkaline Phosphatase (46-116) U/L C-Reactive Protein (<1.0) mg/dL NT-Pro-B Natriuret Pep (0-125) pg/mL Total Protein (6.4-8.2) g/dl Albumin (3.4-5.0) g/dl Globulin gm/dL Albumin/Globulin Ratio (1-2) Lipase (73-393) U/L Urine Color Yellow (Yellow) Urine Appearance Clear (Clear) Urine pH 6.5 (5.0-8.0) Ur Specific [place] 1.020 (1.005-1.030) Urine Protein Negative (Negative) Urine Glucose (UA) Negative (Negative) Urine Ketones Negative (Negative) Urine Occult Blood Negative (Negative) Urine Nitrite Negative (Negative) Urine Bilirubin Negative (Negative) Urine Urobilinogen 0.2 (0.2-1.0) Ur Leukocyte Esterase Negative (Negative) Urine RBC 0-5 (0-5) /hpf Urine WBC 0-5 (0-5) /hpf Ur Squamous Epith Cells 0-5 (0-5) /hpf Urine Bacteria Few (FEW) /hpf Urine Mucus Moderate H (FEW) /hpf SARS Virus RNA (PCR) Negative (NEGATIVE) Blood Type Gel Antibody Screen 04/21/20 Range/Units 05:37 WBC 9.19 H (4.23-9.07) K/mm3 RBC 5.14 (4.63-6.08) M/mm3 Hgb 16.7 (13.7-17.5) gm/dl Hct 49.3 (40.1-51.0) % MCV 95.9 H (79.0-92.2) fl MCH 32.5 H (25.7-32.2) pg MCHC 33.9 (32.2-35.5) g/dl RDW Std Deviation 45.1 H (35.1-43.9) fL Plt Count 125 L (163-337) K/mm3 MPV 12.1 (9.4-12.3) fl Neutrophils % (Manual) (40-60) % Band Neutrophils % (0-10) % Lymphocytes % (Manual) (20-40) % Atypical Lymphs % % Monocytes % (Manual) (2-10) % Eosinophils % (Manual) (0.8-7.0) % Basophils % (Manual) (0.2-1.2) Platelet Estimate Poikilocytosis Anisocytosis RBC Morph Comment PT (9.7-12.0) SECONDS INR APTT (22-31) SECONDS Sodium (136-145) mEq/L Potassium (3.5-5.1) mEq/L Chloride (98-107) mEq/L Carbon Dioxide (21-32) mEq/L Anion Gap (5-15) BUN (7-18) mg/dL Creatinine (0.7-1.3) mg/dL Est Cr Clr Drug Dosing mL/min Estimated GFR (MDRD) (>60) mL/min BUN/Creatinine Ratio (14-18) Glucose (74-106) mg/dL Lactic Acid (0.4-2.0) mmol/L Calcium (8.5-10.1) mg/dL Total Bilirubin (0.2-1.0) mg/dL AST (15-37) U/L ALT (16-63) U/L Alkaline Phosphatase (46-116) U/L C-Reactive Protein (<1.0) mg/dL NT-Pro-B Natriuret Pep (0-125) pg/mL Total Protein (6.4-8.2) g/dl Albumin (3.4-5.0) g/dl Globulin gm/dL Albumin/Globulin Ratio (1-2) Lipase (73-393) U/L Urine Color (Yellow) Urine Appearance (Clear) Urine pH (5.0-8.0) Ur Specific [place] (1.005-1.030) Urine Protein (Negative) Urine Glucose (UA) (Negative) Urine Ketones (Negative) Urine Occult Blood (Negative) Urine Nitrite (Negative) Urine Bilirubin (Negative) Urine Urobilinogen (0.2-1.0) Ur Leukocyte Esterase (Negative) Urine RBC (0-5) /hpf Urine WBC (0-5) /hpf Ur Squamous Epith Cells (0-5) /hpf Urine Bacteria (FEW) /hpf Urine Mucus (FEW) /hpf SARS Virus RNA (PCR) (NEGATIVE) Blood Type Gel Antibody Screen Med Orders - Current: Current Medications Acetaminophen (Tylenol) 650 mg PO Q4H PRN PRN Reason: Pain (Mild 1-3)/fever Albuterol (Proventil Neb Soln) 2.5 mg NEB Q2H PRN PRN Reason: Shortness Of Breath/wheezing Albuterol (Proventil Hfa) 0 gm INH Q4H PRN PRN Reason: Wheezing Albuterol/Ipratropium (Duoneb 3.0-0.5 Mg/3 Ml) 3 ml NEB Q6HRRT [facility] Last Admin: 04/21/20 02:56 Dose: 3 ml Documented by: Amlodipine Besylate (Norvasc) 5 mg PO DAILY [facility] Docusate Sodium (Colace) 100 mg PO BID PRN PRN Reason: Constipation Hydromorphone HCl (Dilaudid) 0.5 mg IVPUSH Q2H PRN PRN Reason: Pain (severe 7-10) Lactated Ringer's (Ringers, Lactated) 1,000 mls @ 75 mls/hr IV ASDIRECTED [facility] Last Admin: 04/21/20 02:54 Dose: 75 mls/hr Documented by: Nicotine (Habitrol) 14 mg TRDERM DAILY [facility] Last Admin: 04/20/20 13:21 Dose: Not Given Documented by: Non-Formulary Medication (Fluticasone/Umeclidin/Vilanter) 1 puff PO DAILY [facility] Non-Formulary Medication (Roflumilast) 500 mcg PO DAILY [facility] Ondansetron HCl (Zofran Odt) 4 mg PO Q4H PRN PRN Reason: nausea, able to take PO Oxycodone HCl (Oxycodone) 5 mg PO Q4H PRN PRN Reason: Pain (moderate 4-6) Last Admin: 04/21/20 05:52 Dose: 5 mg Documented by: Prednisone (Prednisone) 5 mg PO DAILY [facility] Sodium Chloride (Saline Flush) 10 ml FLUSH ONETIME PRN PRN Reason: Keep Vein Open Last Admin: 04/20/20 10:39 Dose: 10 ml Documented by: Discontinued Medications Diatrizoate Meglum/Diatrizoate Sod (Gastrografin 37%) 90 ml PO ONETIME ONE Stop: 04/20/20 10:12 Last Admin: 04/20/20 10:39 Dose: 90 ml Documented by: Hydromorphone HCl (Dilaudid) 0.5 mg IVPUSH ONETIME ONE Stop: 04/20/20 08:48 Last Admin: 04/20/20 09:14 Dose: 0.5 mg Documented by: Dextrose/Sodium Chloride (Dextrose 5%-Normal Saline) 1,000 mls @ 250 mls/hr IV ASDIRECTED [facility] Last Admin: 04/20/20 09:16 Dose: 250 mls/hr Documented by: Iopamidol (Isovue-300 (61%)) 100 ml IVPUSH ONETIME ONE Stop: 04/20/20 10:12 Last Admin: 04/20/20 10:39 Dose: 100 ml Documented by: Metoclopramide HCl (Reglan) 7.5 mg IVPUSH ONETIME ONE Stop: 04/20/20 08:48 Last Admin: 04/20/20 09:12 Dose: 7.5 mg Documented by: - Exam General: Alert, Oriented, Cooperative Lungs: Normal Respiratory Effort, Crackles Cardiovascular: Regular Rate, Regular Rhythm, No Murmurs GI/Abdominal Exam: Soft, No Organomegaly, No Distention, No Abnormal Bruit, Tender (LUQ, left flank) Sepsis Event Note - Evaluation Sepsis Screening Result: No Definite Risk - Focused Exam Vital Signs: Vital Signs Temp Pulse Resp BP Pulse Ox Pulse Ox 04/21/20 03:35 99.0 F 97 20 137/86 86 L 04/21/20 02:56 88 L 04/21/20 01:22 98.1 F 87 16 132/78 87 L 04/20/20 21:12 98.2 F 89 18 134/75 89 L 04/20/20 20:53 89 L - Problem List Review Problem List Initiated/Reviewed/Updated: No - My Orders Last 24 Hours: My Active Orders 04/20/20 Lunch Clear Liquid Diet [DIET] 04/20/20 12:31 Resuscitation Status Routine 04/20/20 12:38 Acetaminophen [Tylenol] 650 mg PO Q4H PRN Albuterol [Proventil Neb Soln] 2.5 mg NEB Q2H PRN Docusate Sodium [Colace] 100 mg PO BID PRN HYDROmorphone [Dilaudid] 0.5 mg IVPUSH Q2H PRN Ondansetron [Zofran ODT] 4 mg PO Q4H PRN oxyCODONE 5 mg PO Q4H PRN 04/20/20 12:38 Patient Status [ADT] Routine Ambulate [RC] ASDIRECTED Antiembolic Devices [RC] BID Cardiac Monitoring [RC] CONTINUOUS Oxygen Therapy [RC] PRN Pulse Oximetry [RC] CONTINUOUS Up ad Cathy [RC] ASDIRECTED VTE/DVT Education [RC] BID Antiembolic Hose [OM.PC] Per Unit Routine 04/20/20 12:45 Lactated Ringers [Ringers, Lactated] 1,000 ml IV ASDIRECTED Nicotine [Habitrol] 14 mg TRDERM DAILY 04/20/20 16:48 Albuterol [Proventil HFA] 0 gm INH Q4H PRN 04/20/20 16:50 RT Aerosol Therapy [RC] ASDIRECTED 04/20/20 21:00 Albuterol/Ipratropium [DuoNeb 3.0-0.5 MG/3 ML] 3 ml NEB Q6HRRT 04/21/20 09:00 Fluticasone/Umeclidin/Vilanter 1 puff PO DAILY Roflumilast 500 mcg PO DAILY amLODIPine [Norvasc] 5 mg PO DAILY predniSONE 5 mg PO DAILY 04/21/20 12:00 HEMOGLOBIN/HEMATOCRIT,HH [HEME] Routine - Assessment Assessment:: Patient has splenic injury with mild bleeding. Unclear etiology. - Plan Plan:: Plan - H/H has been at 16s for the past two checks. We will check another one at noon today. If normal, we will transition to reg diet, and PO pain meds for him. - Continue IVF - Continue current pain control - Oxygen saturations have been in the high 80s. On 1-3 L of oxygen. Encourage ambulation and sitting upright. Give incentive spirometer - If Hgb drops to less than 12, we may consider splenectomy.
[2020-04-21] MEDS: VILANTER PO SCH (08:05)
[2020-04-21] MEDS: FLUTICASONE PO SCH (08:05)
[2020-04-21] MEDS: UMECLIDIN PO SCH (08:05)
[2020-04-21] MEDS: amLODIPine 5 MG Tab PO SCH (08:41)
[2020-04-21] MEDS: predniSONE 5 MG Tab PO SCH (08:42)
[2020-04-21] MEDS: Nicotine 14 MG/24 Hr Patch TRDERM SCH (08:44)
[2020-04-21] MEDS: ROFLUMILAST 500 MCG PO SCH (10:09)
[2020-04-22] MEDS: Albuterol/Ipratropium 3.0-0.5 MG/3 ML Neb Soln NEB SCH ×3 (02:52→14:56)
[2020-04-22] MEDS: oxyCODONE 5 MG Tab PO PRN (06:04)
[2020-04-22] MEDS: amLODIPine 5 MG Tab PO SCH (08:03)
[2020-04-22] MEDS: Nicotine 14 MG/24 Hr Patch TRDERM SCH (08:04)
[2020-04-22] MEDS: predniSONE 5 MG Tab PO SCH (08:04)
[2020-04-22] MEDS: ROFLUMILAST 500 MCG PO SCH (08:07)
[2020-04-22] MEDS: UMECLIDIN PO SCH (08:35)
[2020-04-22] MEDS: FLUTICASONE PO SCH (08:35)
[2020-04-22] MEDS: VILANTER PO SCH (08:35)
--- NOTE | 2020-04-22 11:13 | PCM.DCSUM1 ---
Discharge Summary - Hospital Course Free Text/Narrative:: Patient sustained splenic hematoma without obvious provoking event. CT conformed splenic subcapsular hematoma as well as fluid in the pelvis consistent with blood. Patient remained stable and Hgb remained stable in the hospital. He was discharged to home with pain medications and home oxygen due to persistent desaturations owing to COPD. He will follow up with his PCP in 1-2 weeks. Diagnosis: Stroke: No - Discharge Data Discharge Date: 04/22/20 Discharge Disposition: Home, Self-Care 01 Condition: Good - Referral to Home Health Primary Care Physician: Thompson Martines Jr, MD - Patient Instructions Diet: Regular Diet as Tolerated Activity: As Tolerated Driving: Do Not Drive (until 24 hours after the last opioid pain medication) Showering/Bathing: May Shower Notify Provider of: Fever, Increased Pain Other/Special Instructions: - Take Tylenol or Ibuprofen for pain. If pain becomes severe, take the prescribed opioid pain medication. - Continued doing physical activities such as walking. - Seek medical attention is you experience persistent lightheadedness or dizziness. - Discharge Plan *PRESCRIPTION DRUG MONITORING PROGRAM REVIEWED*: Not Applicable *COPY OF PRESCRIPTION DRUG MONITORING REPORT IN PATIENT JORGE: Not Applicable Prescriptions/Med Rec: Docusate Sodium [Colace] 100 mg PO BID PRN 15 Days #30 cap PRN Reason: Constipation oxyCODONE 5 mg PO Q6H PRN 7 Days #28 tablet PRN Reason: Abdominal Pain Home Medications: Home Meds Albuterol [Proair HFA] 2 puff INH Q4H PRN 11/13/17 [History] Albuterol/Ipratropium [DuoNeb 3.0-0.5 MG/3 ML] 3 ml NEB Q6HRRT #16 neb 08/16/19 [Rx] Roflumilast [Daliresp] 500 mcg PO DAILY 04/20/20 [History] amLODIPine [Norvasc] 5 mg PO DAILY 04/20/20 [History] Acetaminophen [Tylenol] 650 mg PO Q4H PRN tablet 04/22/20 [Rx] Docusate Sodium [Colace] 100 mg PO BID PRN 15 Days #30 cap 04/22/20 [Rx] oxyCODONE 5 mg PO Q6H PRN 7 Days #28 tablet 04/22/20 [Rx] Oxygen Therapy Mode: Room Air Patient Handouts: Chronic Obstructive Pulmonary Disease, Steps to Quit Smoking Referrals: Thompson Martines Jr, MD [Primary Care Provider] - 04/29/20 9:15 am (Please check in at 9:00am.) - Discharge Summary/Plan Comment DC Time >30 min.: Yes - General Info Date of Service: 04/22/20 Admission Dx/Problem (Free Text: Admission Diagnosis/Problem Admission Diagnosis/Problem Abdominal pain Subjective Update: pain is controlled. Tolerating diet, ambulated. Pain is worse with ambulation. He is voiding spontaneously. Functional Status: Reports: Pain Controlled, Tolerating Diet, Ambulating, Urinating - Review of Systems General: Reports: No Symptoms HEENT: Reports: No Symptoms Pulmonary: Reports: No Symptoms Cardiovascular: Reports: No Symptoms Gastrointestinal: Reports: Abdominal Pain (left sided) Genitourinary: Reports: No Symptoms Musculoskeletal: Reports: No Symptoms Skin: Reports: No Symptoms Neurological: Reports: No Symptoms Psychiatric: Reports: No Symptoms - Patient Data Vitals - Most Recent: Last Vital Signs Temp 99.0 F 04/22/20 08:02 Pulse 87 04/22/20 08:02 Resp 18 04/22/20 08:02 BP 103/70 04/22/20 08:03 Pulse Ox 88 L 04/22/20 08:36 Weight - Most Recent: 73.527 kg I&O - Last 24 hours: Intake & Output 04/21/20 04/22/20 04/22/20 22:59 06:59 14:59 Intake Total 1538 1079 Output Total 950 650 Balance 588 429 Lab Results - Last 24 hrs: Laboratory Results - last 24 hr 04/21/20 04/22/20 Range/Units 12:11 05:29 WBC 7.78 (4.23-9.07) K/mm3 RBC 5.12 (4.63-6.08) M/mm3 Hgb 17.2 16.3 (13.7-17.5) gm/dl Hct 50.3 48.8 (40.1-51.0) % MCV 95.3 H (79.0-92.2) fl MCH 31.8 (25.7-32.2) pg MCHC 33.4 (32.2-35.5) g/dl RDW Std Deviation 44.0 H (35.1-43.9) fL Plt Count 130 L (163-337) K/mm3 MPV 12.4 H (9.4-12.3) fl Neut % (Auto) 66.9 (34.0-67.9) % Lymph % (Auto) 13.9 L (21.8-53.1) % [place] % (Auto) 17.0 H (5.3-12.2) % Eos % (Auto) 1.7 (0.8-7.0) Baso % (Auto) 0.4 (0.1-1.2) % Neut # (Auto) 5.21 (1.78-5.38) K/mm3 Lymph # (Auto) 1.08 L (1.32-3.57) K/mm3 [place] # (Auto) 1.32 H (0.30-0.82) K/mm3 Eos # (Auto) 0.13 (0.04-0.54) K/mm3 Baso # (Auto) 0.03 (0.01-0.08) K/mm3 Manual Slide Review Normal smear ELEN Results - Last 24 hrs: Microbiology 04/20/20 09:20 Aerobic Blood Culture - Preliminary Blood - Venous - Lab Draw NO GROWTH AFTER 2 DAYS Anaerobic Blood Culture - Preliminary NO GROWTH AFTER 2 DAYS 04/20/20 09:08 Aerobic Blood Culture - Preliminary Blood - Venous NO GROWTH AFTER 2 DAYS Anaerobic Blood Culture - Preliminary NO GROWTH AFTER 2 DAYS Med Orders - Current: Current Medications Acetaminophen (Tylenol) 650 mg PO Q4H PRN PRN Reason: Pain (Mild 1-3)/fever Albuterol (Proventil Neb Soln) 2.5 mg NEB Q2H PRN PRN Reason: Shortness Of Breath/wheezing Albuterol (Proventil Hfa) 0 gm INH Q4H PRN PRN Reason: Wheezing Albuterol/Ipratropium (Duoneb 3.0-0.5 Mg/3 Ml) 3 ml NEB Q6HRRT [facility] Last Admin: 04/22/20 08:35 Dose: 3 ml Documented by: Amlodipine Besylate (Norvasc) 5 mg PO DAILY [facility] Last Admin: 04/22/20 08:03 Dose: 5 mg Documented by: Docusate Sodium (Colace) 100 mg PO BID PRN PRN Reason: Constipation Hydromorphone HCl (Dilaudid) 0.5 mg IVPUSH Q2H PRN PRN Reason: Pain (severe 7-10) Lactated Ringer's (Ringers, Lactated) 1,000 mls @ 50 mls/hr IV ASDIRECTED [facility] Last Admin: 04/21/20 18:05 Dose: 75 mls/hr Documented by: Nicotine (Habitrol) 14 mg TRDERM DAILY [facility] Last Admin: 04/22/20 08:04 Dose: Not Given Documented by: Non-Formulary Medication (Fluticasone/Umeclidin/Vilanter) 1 puff PO DAILY [facility] Last Admin: 04/22/20 08:35 Dose: 1 puff Documented by: Non-Formulary Medication (Roflumilast) 500 mcg PO DAILY [facility] Last Admin: 04/22/20 08:07 Dose: 500 mcg Documented by: Ondansetron HCl (Zofran Odt) 4 mg PO Q4H PRN PRN Reason: nausea, able to take PO Oxycodone HCl (Oxycodone) 5 mg PO Q4H PRN PRN Reason: Pain (moderate 4-6) Last Admin: 04/22/20 06:04 Dose: 5 mg Documented by: Prednisone (Prednisone) 5 mg PO DAILY [facility] Last Admin: 04/22/20 08:04 Dose: 5 mg Documented by: Sodium Chloride (Saline Flush) 10 ml FLUSH ONETIME PRN PRN Reason: Keep Vein Open Last Admin: 04/20/20 10:39 Dose: 10 ml Documented by: Discontinued Medications Diatrizoate Meglum/Diatrizoate Sod (Gastrografin 37%) 90 ml PO ONETIME ONE Stop: 04/20/20 10:12 Last Admin: 04/20/20 10:39 Dose: 90 ml Documented by: Hydromorphone HCl (Dilaudid) 0.5 mg IVPUSH ONETIME ONE Stop: 04/20/20 08:48 Last Admin: 04/20/20 09:14 Dose: 0.5 mg Documented by: Dextrose/Sodium Chloride (Dextrose 5%-Normal Saline) 1,000 mls @ 250 mls/hr IV ASDIRECTED [facility] Last Admin: 04/20/20 09:16 Dose: 250 mls/hr Documented by: Iopamidol (Isovue-300 (61%)) 100 ml IVPUSH ONETIME ONE Stop: 04/20/20 10:12 Last Admin: 04/20/20 10:39 Dose: 100 ml Documented by: Metoclopramide HCl (Reglan) 7.5 mg IVPUSH ONETIME ONE Stop: 04/20/20 08:48 Last Admin: 04/20/20 09:12 Dose: 7.5 mg Documented by: - Exam General: Reports: Alert, Oriented, Cooperative Lungs: Reports: Clear to Auscultation, Normal Respiratory Effort Cardiovascular: Reports: Regular Rate, Regular Rhythm, No Murmurs GI/Abdominal Exam: Normal Bowel Sounds, Soft, No Distention, No Abnormal Bruit, No Mass, Tender (left flank)
[2020-04-22 16:05] VITALS: BP 123/68; PULSE 94
== END 2020-04-22 16:20 | disposition home or self-care (01) | DRG 663 ==
LOC: JD.ED 08:20 → JD.MS 12:15
PROVIDERS: ADMIT Surgery; ATTEND Surgery
DX: D73.5 Infarction of spleen (principal); Z79.899 Other long term (current) drug therapy; I10 Essential (primary) hypertension; J44.9 Chronic obstructive pulmonary disease, unspecified; M19.90 Unspecified osteoarthritis, unspecified site; M54.9 Dorsalgia, unspecified; G89.29 Other chronic pain; F17.210 Nicotine dependence, cigarettes, uncomplicated; Z20.828 Contact with and (suspected) exposure to other viral communicable diseases
CPT/HCPCS: 36415; 71045; 71045-26; 74177; 74177-26; 80053; 81001; 83605; 83690; 83880; 85007; 85014; 85018; 85025; 85027; 85610; 85730; 86140; 86850; 86900; 86901; 87040; 93005; 93010; 94640; 94761; 94762; 96374; 96375; 99285; 99285-25; A9270-GY; J1170; J2765; J7042; J7120; J7512; J7620-GY; Q9963; Q9967; U0002

== ENCOUNTER 2021-02-20 13:35 | Emergency (ER) | payer BC ==
[2021-02-20 13:52] VITALS: BP 144/93; PULSE 87
[2021-02-20] MEDS ORDERED: Sodium Chloride 0.9% 10 ML Syringe FLUSH PRN (14:00)
[2021-02-20] MEDS ORDERED: Albuterol/Ipratropium 3.0-0.5 MG/3 ML Neb Soln NEB ONE ×2 (14:01→14:53)
[2021-02-20] MEDS ORDERED: methylPREDNISolone Sodium Succinate 125 MG/2 ML SDV IVPUSH ONE (14:01)
--- NOTE | 2021-02-20 14:37 | EDM.PDOC ---
ED HPI GENERAL MEDICAL PROBLEM - General Chief Complaint: Respiratory Problem Stated Complaint: SOB Time Seen by Provider: 02/20/21 13:41 Source of Information: Reports: Patient History Limitations: Reports: No Limitations - History of Present Illness INITIAL COMMENTS - FREE TEXT/NARRATIVE: The patient presents with shortness of breath. He has known COPD and his on inhalers. He says for the past week he has been more short of breath. He is having a cough but no fever or chills. He has no ches pain, abdominal pain, nausea or vomiting. He still smokes. Onset: Gradual Duration: Week(s): Severity: Moderate Improves with: Reports: None Worsens with: Reports: None Associated Symptoms: Reports: Cough, Shortness of Breath. Denies: Chest Pain, Fever/Chills, Headaches, Nausea/Vomiting - Related Data Allergies Allergy/AdvReac Type Severity Reaction Status Date / Time No Known Allergies Allergy Verified 02/20/21 13:42 Home Meds: Home Meds Albuterol [Proair HFA] 2 puff INH Q4H PRN 11/13/17 [History] Roflumilast [Daliresp] 500 mcg PO DAILY 04/20/20 [History] amLODIPine [Norvasc] 5 mg PO DAILY 04/20/20 [History] Albuterol/Ipratropium [DuoNeb 3.0-0.5 MG/3 ML] 3 ml NEB Q8HR PRN 02/20/21 [History] Fluticasone/Umeclidin/Vilanter [Trelegy Ellipta 100-62.5-25 MCG] 1 puff INH DAILY 02/20/21 [History] predniSONE [Prednisone] 10 mg PO DAILY 02/20/21 [History] predniSONE [Prednisone] 40 mg PO DAILY #10 tablet 02/20/21 [Rx] Past Medical History - Past Health History Medical/Surgical History: Denies Medical/Surgical History HEENT History: Reports: Hard of Hearing, Impaired Vision Cardiovascular History: Reports: Hypertension, SOB on Exertion Respiratory History: Reports: COPD, SOB Genitourinary History: Reports: None Musculoskeletal History: Reports: Arthritis, Back Pain, Chronic Neurological History: Reports: None Psychiatric History: Reports: Addiction Endocrine/Metabolic History: Reports: None Hematologic History: Reports: None Immunologic History: Reports: None Oncologic (Cancer) History: Reports: None Dermatologic History: Reports: None - Infectious Disease History Infectious Disease History: Reports: None - Past Surgical History HEENT Surgical History: Reports: Oral Surgery, Other (See Below) Other HEENT Surgeries/Procedures: 2007 Cardiovascular Surgical History: Reports: None Respiratory Surgical History: Reports: None GI Surgical History: Reports: Hernia, Inguinal Endocrine Surgical History: Reports: None Social & Family History - Family History Family Medical History: No Pertinent Family History HEENT: Reports: None Cardiac: Reports: Heart Failure, Heart Murmur, Pacemaker, Other (See Below) Other Cardiac Family History: mother/father Neurological: Reports: Parkinson's, Other (See Below) Other Neurological Family History: father Oncologic: Reports: Prostate, Other (See Below) Other Oncologic Family History: father - Tobacco Use Tobacco Use Status *Q: Current Every Day Tobacco User Years of Tobacco use: 45 Packs/Tins Daily: 1 - Caffeine Use Caffeine Use: Reports: Coffee Other Caffeine Use: 1 coffee/day - Alcohol Use Days Per Week of Alcohol Use: 3 Number of Drinks Per Day: 1 Total Drinks Per Week: 3 - Recreational Drug Use Recreational Drug Use: No - Living Situation & Occupation Living situation: Reports: , Alone 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) ED ROS GENERAL - Review of Systems Review Of Systems: See Below Constitutional: Reports: No Symptoms HEENT: Reports: No Symptoms Respiratory: Reports: Shortness of Breath, Wheezing, Cough Cardiovascular: Reports: No Symptoms Endocrine: Reports: No Symptoms GI/Abdominal: Reports: No Symptoms : Reports: No Symptoms Musculoskeletal: Reports: No Symptoms Skin: Reports: No Symptoms Neurological: Reports: No Symptoms ED EXAM, GENERAL - Physical Exam Exam: See Below Exam Limited By: No Limitations General Appearance: Alert, No Apparent Distress Ears: Normal External Exam Nose: Normal Inspection Head: Atraumatic, Normocephalic Neck: Normal Inspection Respiratory/Chest: No Respiratory Distress, Decreased Breath Sounds, Wheezing Cardiovascular: Regular Rate, Rhythm, No Edema, No Murmur GI/Abdominal: Soft, Non-Tender, No Organomegaly, No Mass Back Exam: Normal Inspection Extremities: Normal Inspection Course - Vital Signs Last Recorded V/S: Last Vital Signs Temp 98.9 F 02/20/21 13:41 Pulse 87 02/20/21 13:51 Resp 35 H 02/20/21 13:41 BP 144/93 H 02/20/21 13:51 Pulse Ox 93 L 02/20/21 15:12 - Orders/Labs/Meds Orders: Active Orders 24 hr Category Date Time Status Cardiac Monitoring [RC] . DIRECTED Care 02/20/21 14:01 Active Oxygen Therapy [RC] PRN Care 02/20/21 14:01 Active Peripheral IV Care [RC] . DIRECTED Care 02/20/21 14:01 Active RT Aerosol Therapy [RC] ASDIRECTED Care 02/20/21 14:01 Active RT Aerosol Therapy [RC] ASDIRECTED Care 02/20/21 14:53 Active Sodium Chloride 0.9% [Saline Flush] Med 02/20/21 14:00 Active 10 ml FLUSH ASDIRECTED PRN Peripheral IV Insertion Adult [OM.PC] Stat Oth 02/20/21 14:00 Ordered Medication Orders Sodium Chloride (Sodium Chloride 0.9% 10 Ml Syringe) 10 ml FLUSH ASDIRECTED PRN PRN Reason: Keep Vein Open Last Admin: 02/20/21 14:10 Dose: 10 ml Documented by: BREANA Labs: Laboratory Tests 02/20/21 02/20/21 Range/Units 14:05 14:05 WBC 6.73 (4.23-9.07) K/mm3 RBC 5.32 (4.63-6.08) M/mm3 Hgb 18.2 H D (13.7-17.5) gm/dl Hct 52.1 H (40.1-51.0) % MCV 97.9 H (79.0-92.2) fl MCH 34.2 H (25.7-32.2) pg MCHC 34.9 (32.2-35.5) g/dl RDW Std Deviation 49.2 H (35.1-43.9) fL Plt Count 145 L (163-337) K/mm3 MPV 11.3 (9.4-12.3) fl Neut % (Auto) 67.4 (34.0-67.9) % Lymph % (Auto) 18.9 L (21.8-53.1) % [place] % (Auto) 11.7 (5.3-12.2) % Eos % (Auto) 1.5 (0.8-7.0) Baso % (Auto) 0.4 (0.1-1.2) % Neut # (Auto) 4.53 (1.78-5.38) K/mm3 Lymph # (Auto) 1.27 L (1.32-3.57) K/mm3 [place] # (Auto) 0.79 (0.30-0.82) K/mm3 Eos # (Auto) 0.10 (0.04-0.54) K/mm3 Baso # (Auto) 0.03 (0.01-0.08) K/mm3 Sodium 146 H (136-145) mEq/L Potassium 3.8 (3.5-5.1) mEq/L Chloride 107 (98-107) mEq/L Carbon Dioxide 26 (21-32) mEq/L Anion Gap 16.8 H (5-15) BUN 9 (7-18) mg/dL Creatinine 0.8 (0.7-1.3) mg/dL Est Cr Clr Drug Dosing 107.78 mL/min Estimated GFR (MDRD) > 60 (>60) mL/min BUN/Creatinine Ratio 11.3 L (14-18) Glucose 105 H (70-99) mg/dL Calcium 8.4 L (8.5-10.1) mg/dL Total Bilirubin 1.8 H (0.2-1.0) mg/dL AST 14 L (15-37) U/L ALT 22 (16-63) U/L Alkaline Phosphatase 107 (46-116) U/L Total Protein 6.8 (6.4-8.2) g/dl Albumin 3.5 (3.4-5.0) g/dl Globulin 3.3 gm/dL Albumin/Globulin Ratio 1.1 (1-2) Meds: Medications Generic Name Dose Route Start Last Admin Trade Name Freq PRN Reason Stop Dose Admin Sodium Chloride 10 ml 02/20/21 14:00 02/20/21 14:10 Sodium Chloride 0.9% 10 Ml Syringe FLUSH 10 ml ASDIRECTED PRN Administration Keep Vein Open Discontinued Medications Generic Name Dose Route Start Last Admin Trade Name Freq PRN Reason Stop Dose Admin Albuterol/Ipratropium 3 ml 02/20/21 14:01 02/20/21 14:10 Albuterol/Ipratropium 3.0-0.5 Mg/3 Ml Neb Soln NEB 02/20/21 14:02 3 ml ONETIME ONE Administration Albuterol/Ipratropium 3 ml 02/20/21 14:53 02/20/21 15:12 Albuterol/Ipratropium 3.0-0.5 Mg/3 Ml Neb Soln NEB 02/20/21 14:54 3 ml ONETIME ONE Administration Methylprednisolone Sodium Succinate 125 mg 02/20/21 14:01 02/20/21 14:10 Methylprednisolone Sodium Succinate 125 Mg/2 Ml Sdv IVPUSH 02/20/21 14:02 125 mg ONETIME ONE Administration - Re-Assessments/Exams Free Text/Narrative Re-Assessment/Exam: 02/20/21 14:36 I ordered an IV saline lock, solumedrol 125mg IV, CXR, labs, and duoneb. 02/20/21 15:59 His CBC and CMP look good. His CXR looks good. His oxygen saturations went down with the treatment. I ordered another one. He says he feels better. His saturations will come up to 90s. He was on oxygen for awhile. I offered admission but he would like to try it at home. Departure - Departure Time of Disposition: 16:05 Disposition: Home, Self-Care 01 Condition: Good Clinical Impression: COPD exacerbation - Discharge Information *PRESCRIPTION DRUG MONITORING PROGRAM REVIEWED*: Not Applicable *COPY OF PRESCRIPTION DRUG MONITORING REPORT IN PATIENT JORGE: Not Applicable Prescriptions: predniSONE [Prednisone] 40 mg PO DAILY #10 tablet Referrals: Thompson Martines Jr, MD [Primary Care Provider] - 1 Week Forms: ED Department Discharge Additional Instructions: Try to stop smoking. Take your medications as prescribed. Take prednisone daily. Please return if you are worse. Sepsis Event Note (ED) - Evaluation Sepsis Screening Result: No Definite Risk - Focused Exam Vital Signs: Vital Signs Temp Pulse Resp BP Pulse Ox Pulse Ox Pulse Ox 02/20/21 15:12 93 L 02/20/21 14:10 91 L 02/20/21 13:51 87 144/93 H 91 L 02/20/21 13:41 98.9 F 96 35 H 201/112 H 90 L - My Orders Last 24 Hours: My Active Orders 02/20/21 14:00 Sodium Chloride 0.9% [Saline Flush] 10 ml FLUSH ASDIRECTED PRN Peripheral IV Insertion Adult [OM.PC] Stat 02/20/21 14:01 Cardiac Monitoring [RC] . DIRECTED Oxygen Therapy [RC] PRN Peripheral IV Care [RC] . DIRECTED RT Aerosol Therapy [RC] ASDIRECTED 02/20/21 14:53 RT Aerosol Therapy [RC] ASDIRECTED - Assessment/Plan Last 24 Hours: My Active Orders 02/20/21 14:00 Sodium Chloride 0.9% [Saline Flush] 10 ml FLUSH ASDIRECTED PRN Peripheral IV Insertion Adult [OM.PC] Stat 02/20/21 14:01 Cardiac Monitoring [RC] . DIRECTED Oxygen Therapy [RC] PRN Peripheral IV Care [RC] . DIRECTED RT Aerosol Therapy [RC] ASDIRECTED 02/20/21 14:53 RT Aerosol Therapy [RC] ASDIRECTED
--- NOTE | 2021-02-20 14:43 | CR ---
Chest: Portable view of the chest was obtained. Comparison: Prior chest x-ray 04/20/20. Slight blunting of the lateral costophrenic angle is seen on both sides most likely chronic. Lungs otherwise are clear with no acute parenchymal change. Heart size and mediastinum are stable. Bony structures show nothing acute. Impression: 1. Findings as noted above. 2. Nothing acute is definitely appreciated. Diagnostic code #2
== END 2021-02-20 16:30 | disposition home or self-care (01) ==
LOC: JD.ED 13:35
DX: J44.1 Chronic obstructive pulmonary disease with (acute) exacerbation (principal); I10 Essential (primary) hypertension; Z72.0 Tobacco use
CPT/HCPCS: 36415; 71045; 80053; 85025; 94640; 96374; 99285; J2930; 99283; J7620-GY

== ENCOUNTER 2021-02-22 01:15 | Inpatient (IN) | payer BC ==
[2021-02-22] MEDS ORDERED: Albuterol/Ipratropium 3.0-0.5 MG/3 ML Neb Soln NEB ONE ×2 (01:20→06:08)
[2021-02-22] MEDS ORDERED: Albuterol/Ipratropium 3.0-0.5 MG/3 ML Neb Soln ONE (01:20)
[2021-02-22] MEDS ORDERED: Sodium Chloride 0.9% 10 ML Syringe FLUSH PRN (01:24)
[2021-02-22] MEDS ORDERED: methylPREDNISolone Sodium Succinate 125 MG/2 ML SDV IVPUSH ONE (01:24)
--- NOTE | 2021-02-22 01:47 | EDM.PDOC ---
ED HPI GENERAL MEDICAL PROBLEM - General Chief Complaint: Respiratory Problem Stated Complaint: not better Time Seen by Provider: 02/22/21 01:23 Source of Information: Reports: Patient, RN Notes Reviewed - History of Present Illness INITIAL COMMENTS - FREE TEXT/NARRATIVE: 60 yr old male comes in short of breath. Hx COPD, has been short of breath for about a week. Was eval and treated here in this ED 1 1/2 days ago. Offered hosp. admission but elected to go home on prednisone. Became more short of breath a few hrs ago, unable to sleep. Now severe wheezing even sitting upright. coughing more than ususal. Continues to smoke. No fever or chills. Treatments RN INTERVENTIONAL: Reports: Home Treatments - Related Data Allergies Allergy/AdvReac Type Severity Reaction Status Date / Time No Known Allergies Allergy Verified 02/22/21 01:38 Home Meds: Home Meds Albuterol [Proair HFA] 2 puff INH Q4H PRN 11/13/17 [History] Roflumilast [Daliresp] 500 mcg PO DAILY 04/20/20 [History] amLODIPine [Norvasc] 5 mg PO DAILY 04/20/20 [History] Albuterol/Ipratropium [DuoNeb 3.0-0.5 MG/3 ML] 3 ml NEB Q8HR PRN 02/20/21 [History] Fluticasone/Umeclidin/Vilanter [Trelegy Ellipta 100-62.5-25 MCG] 1 puff INH DAILY 02/20/21 [History] predniSONE [Prednisone] 10 mg PO DAILY 02/20/21 [History] predniSONE [Prednisone] 40 mg PO DAILY #10 tablet 02/20/21 [Rx] Past Medical History - Past Health History Medical/Surgical History: Denies Medical/Surgical History HEENT History: Reports: Hard of Hearing, Impaired Vision Cardiovascular History: Reports: Hypertension, SOB on Exertion Respiratory History: Reports: COPD, SOB Genitourinary History: Reports: None Musculoskeletal History: Reports: Arthritis, Back Pain, Chronic Neurological History: Reports: None Psychiatric History: Reports: Addiction Endocrine/Metabolic History: Reports: None Hematologic History: Reports: None Immunologic History: Reports: None Oncologic (Cancer) History: Reports: None Dermatologic History: Reports: None - Infectious Disease History Infectious Disease History: Reports: None - Past Surgical History HEENT Surgical History: Reports: Oral Surgery, Other (See Below) Other HEENT Surgeries/Procedures: 2007 Cardiovascular Surgical History: Reports: None Respiratory Surgical History: Reports: None GI Surgical History: Reports: Hernia, Inguinal Endocrine Surgical History: Reports: None Social & Family History - Family History Family Medical History: No Pertinent Family History HEENT: Reports: None Cardiac: Reports: Heart Failure, Heart Murmur, Pacemaker, Other (See Below) Other Cardiac Family History: mother/father Neurological: Reports: Parkinson's, Other (See Below) Other Neurological Family History: father Oncologic: Reports: Prostate, Other (See Below) Other Oncologic Family History: father - Caffeine Use Caffeine Use: Reports: Coffee Other Caffeine Use: 1 coffee/day - Living Situation & Occupation Living situation: Reports: , Alone 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) ED ROS GENERAL - Review of Systems Review Of Systems: See Below Constitutional: Denies: Fever, Chills, Diaphoresis HEENT: Denies: Rhinitis, Throat Pain Respiratory: Reports: Shortness of Breath, Wheezing, Cough Cardiovascular: Denies: Chest Pain GI/Abdominal: Denies: Abdominal Pain, Nausea, Vomiting Musculoskeletal: Reports: No Symptoms Skin: Reports: No Symptoms Neurological: Reports: Dizziness ED EXAM, GENERAL - Physical Exam Exam: See Below General Appearance: Alert, Anxious, Moderate Distress Eye Exam: Bilateral Eye: PERRL Throat/Mouth: Normal Inspection Head: Atraumatic Neck: Supple Respiratory/Chest: Respiratory Distress, Wheezing (bilat), Accessory Muscle Use Cardiovascular: Tachycardia GI/Abdominal: Non-Tender Extremities: No: Pedal Edema, Leg Pain, Increased Warmth, Redness Neurological: Alert, Oriented, No Motor/Sensory Deficits Skin Exam: Warm, Dry, Normal Color Course - Vital Signs Last Recorded V/S: Last Vital Signs Temp 96.5 F L 02/22/21 01:29 Pulse 99 02/22/21 06:36 Resp 20 02/22/21 06:36 BP 123/77 02/22/21 06:36 Pulse Ox 90 L 02/22/21 06:36 - Orders/Labs/Meds Orders: Active Orders 24 hr Category Date Time Status Admission Status [Patient Status] [ADT] Routine ADT 02/22/21 06:53 Active Oxygen Therapy [RC] ASDIRECTED Care 02/22/21 01:23 Active Peripheral IV Care [RC] . DIRECTED Care 02/22/21 01:24 Active RT Aerosol Therapy [RC] ASDIRECTED Care 02/22/21 01:36 Active RT Aerosol Therapy [RC] ASDIRECTED Care 02/22/21 02:10 Active RT Aerosol Therapy [RC] ASDIRECTED Care 02/22/21 06:08 Active Chest 1V Frontal [CR] Stat Exams 02/22/21 01:46 Taken CORONAVIRUS COVID-19 KALIN [MOLEC] Stat Lab 02/22/21 06:27 Received Sodium Chloride 0.9% [Saline Flush] Med 02/22/21 01:24 Active 10 ml FLUSH ASDIRECTED PRN Peripheral IV Insertion Adult [OM.PC] Stat Oth 02/22/21 01:23 Ordered Medication Orders Sodium Chloride (Sodium Chloride 0.9% 10 Ml Syringe) 10 ml FLUSH ASDIRECTED PRN PRN Reason: Keep Vein Open Last Admin: 02/22/21 01:40 Dose: 10 ml Documented by: OLIVIA Labs: Laboratory Tests 02/22/21 02/22/21 02/22/21 Range/Units 01:26 01:26 01:26 WBC 14.36 H (4.23-9.07) K/mm3 RBC 6.34 H (4.63-6.08) M/mm3 Hgb 21.1 H D (13.7-17.5) gm/dl Hct 62.5 H (40.1-51.0) % MCV 98.9 H (79.0-92.2) fl MCH 33.3 H (25.7-32.2) pg MCHC 33.7 (32.2-35.5) g/dl RDW Std Deviation 52.6 H (35.1-43.9) fL Plt Count 192 (163-337) K/mm3 MPV 11.3 (9.4-12.3) fl Neut % (Auto) 72.6 H (34.0-67.9) % Lymph % (Auto) 17.1 L (21.8-53.1) % [place] % (Auto) 9.8 (5.3-12.2) % Eos % (Auto) 0.1 L (0.8-7.0) Baso % (Auto) 0.1 (0.1-1.2) % Neut # (Auto) 10.43 H (1.78-5.38) K/mm3 Lymph # (Auto) 2.45 (1.32-3.57) K/mm3 [place] # (Auto) 1.41 H (0.30-0.82) K/mm3 Eos # (Auto) 0.01 L (0.04-0.54) K/mm3 Baso # (Auto) 0.01 (0.01-0.08) K/mm3 Manual Slide Review Abnormal smear Puncture Site ABG pH (7.35-7.45) ABG pCO2 (35.0-45.0) mmHg ABG pO2 (80.0-100.0) mmHg ABG HCO3 (22.0-26.0) meq/L ABG O2 Saturation (96.0-97.0) % ABG Base Excess (-2-2.0) Karan Test A-a Gradient mmHg O2 Delivery Device FiO2 (21.00-100.00) % Sodium 143 (136-145) mEq/L Potassium 3.4 L (3.5-5.1) mEq/L Chloride 103 (98-107) mEq/L Carbon Dioxide 26 (21-32) mEq/L Anion Gap 17.4 H (5-15) BUN 14 (7-18) mg/dL Creatinine 1.0 (0.7-1.3) mg/dL Est Cr Clr Drug Dosing TNP Estimated GFR (MDRD) > 60 (>60) mL/min BUN/Creatinine Ratio 14.0 (14-18) Glucose 114 H (70-99) mg/dL Calcium 9.1 (8.5-10.1) mg/dL Total Bilirubin 1.4 H (0.2-1.0) mg/dL AST 16 (15-37) U/L ALT 31 (16-63) U/L Alkaline Phosphatase 125 H (46-116) U/L Troponin I < 0.017 (0.00-0.056) ng/mL C-Reactive Protein <0.2 (<1.0) mg/dL NT-Pro-B Natriuret Pep (0-125) pg/mL Total Protein 8.6 H (6.4-8.2) g/dl Albumin 4.4 (3.4-5.0) g/dl Globulin 4.2 gm/dL Albumin/Globulin Ratio 1.1 (1-2) 06/20/21 06/20/21 Range/Units 01:26 06:10 WBC (4.23-9.07) K/mm3 RBC (4.63-6.08) M/mm3 Hgb (13.7-17.5) gm/dl Hct (40.1-51.0) % MCV (79.0-92.2) fl MCH (25.7-32.2) pg MCHC (32.2-35.5) g/dl RDW Std Deviation (35.1-43.9) fL Plt Count (163-337) K/mm3 MPV (9.4-12.3) fl Neut % (Auto) (34.0-67.9) % Lymph % (Auto) (21.8-53.1) % [place] % (Auto) (5.3-12.2) % Eos % (Auto) (0.8-7.0) Baso % (Auto) (0.1-1.2) % Neut # (Auto) (1.78-5.38) K/mm3 Lymph # (Auto) (1.32-3.57) K/mm3 [place] # (Auto) (0.30-0.82) K/mm3 Eos # (Auto) (0.04-0.54) K/mm3 Baso # (Auto) (0.01-0.08) K/mm3 Manual Slide Review Puncture Site Lt radial ABG pH 7.36 (7.35-7.45) ABG pCO2 45.4 H (35.0-45.0) mmHg ABG pO2 52.0 L (80.0-100.0) mmHg ABG HCO3 25.2 (22.0-26.0) meq/L ABG O2 Saturation 84.4 L (96.0-97.0) % ABG Base Excess -0.2 (-2-2.0) Karan Test Positive A-a Gradient 41 mmHg O2 Delivery Device Room air FiO2 21.00 (21.00-100.00) % Sodium (136-145) mEq/L Potassium (3.5-5.1) mEq/L Chloride (98-107) mEq/L Carbon Dioxide (21-32) mEq/L Anion Gap (5-15) BUN (7-18) mg/dL Creatinine (0.7-1.3) mg/dL Est Cr Clr Drug Dosing Estimated GFR (MDRD) (>60) mL/min BUN/Creatinine Ratio (14-18) Glucose (70-99) mg/dL Calcium (8.5-10.1) mg/dL Total Bilirubin (0.2-1.0) mg/dL AST (15-37) U/L ALT (16-63) U/L Alkaline Phosphatase (46-116) U/L Troponin I (0.00-0.056) ng/mL C-Reactive Protein (<1.0) mg/dL NT-Pro-B Natriuret Pep 80 (0-125) pg/mL Total Protein (6.4-8.2) g/dl Albumin (3.4-5.0) g/dl Globulin gm/dL Albumin/Globulin Ratio (1-2) Meds: Medications Generic Name Dose Route Start Last Admin Trade Name Freq PRN Reason Stop Dose Admin Sodium Chloride 10 ml 02/22/21 01:24 02/22/21 01:40 Sodium Chloride 0.9% 10 Ml Syringe FLUSH 10 ml ASDIRECTED PRN Administration Keep Vein Open Discontinued Medications Generic Name Dose Route Start Last Admin Trade Name Freq PRN Reason Stop Dose Admin Albuterol 2.5 mg 02/22/21 02:10 02/22/21 02:20 Albuterol 0.083% 2.5 Mg/3 Ml Neb Soln NEB 02/22/21 02:11 2.5 mg ONETIME ONE Administration Albuterol/Ipratropium Confirm 02/22/21 01:20 02/22/21 01:27 Albuterol/Ipratropium 3.0-0.5 Mg/3 Ml Neb Soln Administered 02/22/21 01:21 3 ml Dose Administration 3 ml .ROUTE .STK-MED ONE Albuterol/Ipratropium 3 ml 02/22/21 01:20 02/22/21 01:36 Albuterol/Ipratropium 3.0-0.5 Mg/3 Ml Neb Soln NEB 02/22/21 01:21 Not Given ONETIME ONE Albuterol/Ipratropium 3 ml 02/22/21 06:08 02/22/21 06:26 Albuterol/Ipratropium 3.0-0.5 Mg/3 Ml Neb Soln NEB 02/22/21 06:09 3 ml ONETIME ONE Administration Methylprednisolone Sodium Succinate 125 mg 02/22/21 01:24 02/22/21 01:39 Methylprednisolone Sodium Succinate 125 Mg/2 Ml Sdv IVPUSH 02/22/21 01:25 125 mg ONETIME ONE Administration - Re-Assessments/Exams Free Text/Narrative Re-Assessment/Exam: 02/22/21 03:00. WBC 14,000 but CRP 0.2. Other labs are OK. CXR continues to not show an infiltrate. He is breathing more comfortably after a Duoneb followed by albuterol neb. Have given solumedrol 125 mg IV. Still has some wheezing. Will moniter for a while, give further nebs as needed, see if he gets well enough to go home or may need to be admitted. Sats 93 % 3 L NC. 02/22/21 04:00 sleeping. 05:30 still sleeping. sats 90 to 92 % 2 L NC. 02/22/21 06:09. still sleeping, will check ABG's room air. Departure - Departure Time of Disposition: 06:56 Disposition: Admitted As Inpatient 66 Condition: Serious Clinical Impression: COPD exacerbation - Discharge Information Referrals: PCP,None [Primary Care Provider] - Forms: ED Department Discharge Sepsis Event Note (ED) - Evaluation Sepsis Screening Result: No Definite Risk - Focused Exam Vital Signs: Vital Signs Temp Pulse Pulse Resp BP Pulse Ox Pulse Ox 02/22/21 06:36 99 20 123/77 90 L 02/22/21 06:27 92 L 02/22/21 05:31 90 20 117/80 89 L 02/22/21 04:36 97 20 92/52 L 93 L 02/22/21 03:00 94 L 02/22/21 02:57 97 02/22/21 02:48 110 H 22 H 93 L 02/22/21 02:22 95 02/22/21 02:04 110 H 24 H 114/90 92 L 02/22/21 01:29 96.5 F L 136 H 30 H 126/87 86 L 02/22/21 01:27 91 L ED Communication - Discussed Case With (1) Discussed Case With (1): Admitting Provider (Dr Mahajan, decision to admit at about 18:55.) - My Orders Last 24 Hours: My Active Orders 02/22/21 01:23 Oxygen Therapy [RC] ASDIRECTED Peripheral IV Insertion Adult [OM.PC] Stat 02/22/21 01:24 Peripheral IV Care [RC] . DIRECTED Sodium Chloride 0.9% [Saline Flush] 10 ml FLUSH ASDIRECTED PRN 02/22/21 01:36 RT Aerosol Therapy [RC] ASDIRECTED 02/22/21 01:46 Chest 1V Frontal [CR] Stat 02/22/21 02:10 RT Aerosol Therapy [RC] ASDIRECTED 02/22/21 06:08 RT Aerosol Therapy [RC] ASDIRECTED 02/22/21 06:27 CORONAVIRUS COVID-19 KALIN [MOLEC] Stat 02/22/21 06:53 Admission Status [Patient Status] [ADT] Routine - Assessment/Plan Last 24 Hours: My Active Orders 02/22/21 01:23 Oxygen Therapy [RC] ASDIRECTED Peripheral IV Insertion Adult [OM.PC] Stat 02/22/21 01:24 Peripheral IV Care [RC] . DIRECTED Sodium Chloride 0.9% [Saline Flush] 10 ml FLUSH ASDIRECTED PRN 02/22/21 01:36 RT Aerosol Therapy [RC] ASDIRECTED 02/22/21 01:46 Chest 1V Frontal [CR] Stat 02/22/21 02:10 RT Aerosol Therapy [RC] ASDIRECTED 02/22/21 06:08 RT Aerosol Therapy [RC] ASDIRECTED 02/22/21 06:27 CORONAVIRUS COVID-19 KALIN [MOLEC] Stat 02/22/21 06:53 Admission Status [Patient Status] [ADT] Routine
[2021-02-22] MEDS ORDERED: Albuterol 0.083% 2.5 MG/3 ML Neb Soln NEB ONE ×2 (02:10→07:28)
--- NOTE | 2021-02-22 08:48 | CR ---
Chest: Portable view of the chest was obtained. Comparison: Prior chest x-ray of 02/20/21. Slight blunting of the lateral costophrenic angles are noted which are stable. Heart size and mediastinum are normal. Lungs show no acute parenchymal change. Lungs appear to be slightly hyperinflated. Bony structure shows nothing acute. Impression: 1. Probable emphysematous change. 2. Other stable findings as noted above. Nothing acute is appreciated on portable chest x-ray. Diagnostic code #2
[2021-02-22] MEDS ORDERED: Acetaminophen/HYDROcodone 325-5 MG Tab PO PRN (10:00)
[2021-02-22] MEDS ORDERED: Docusate Sodium 100 MG Cap PO PRN (10:00)
[2021-02-22] MEDS ORDERED: Acetaminophen 325 MG Tab PO PRN (10:00)
[2021-02-22] MEDS ORDERED: Promethazine 12.5 MG in Sodium Chloride 0.9% 50 ML IV PRN (10:00)
[2021-02-22] MEDS ORDERED: Albuterol 6.7 GM Inhaler INH PRN (10:08)
[2021-02-22] MEDS ORDERED: guaiFENesin 600 MG Tab.ER PO PRN (10:08)
[2021-02-22] MEDS ORDERED: hydrALAZINE 20 MG/ML SDV IVPUSH PRN (10:11)
[2021-02-22] MEDS: Azithromycin 250 MG Tab PO SCH (10:20)
[2021-02-22] MEDS: Enoxaparin 40 MG/0.4 ML Syringe SUBCUT SCH (10:22)
[2021-02-22] MEDS: amLODIPine 5 MG Tab PO SCH (10:22)
[2021-02-22] MEDS: Dextrose 5%-Lact Ringers w/KCl 1,000 ML IV SCH (10:25)
[2021-02-22] MEDS: ROFLUMILAST 500 MCG PO SCH (10:26)
--- NOTE | 2021-02-22 10:28 | PCM.HP.2 ---
H&P History of Present Illness - General Date of Service: 02/22/21 Admit Problem/Dx: Admission Diagnosis/Problem Admission Diagnosis/Problem COPD, Severe chronic obstructive pulmonary disease Source of Information: Patient - History of Present Illness Initial Comments - Free Text/Narative: Patient is a 60-year-old male with a history of COPD, current smoker and hypert ension who presented to the ER due to worsening shortness of breath. As per patient, patient started to have shortness of breath 5 to 6 years ago which has been worsening over the past 4 weeks. He visited our ER 2 days ago and was discharged home with prednisone. Patient came back to the ER because he still has a very bad shortness of breath. he also has cough with clear sputum. Otherwise he is fine. Denies headache, dizziness, chest pain, fever, chills, abdominal pain, or dysuria. In the ER, he needed oxygen. Chest x-ray showed no acute change. He denies using oxygen at home. - Related Data Allergies/Adverse Reactions: Allergies Allergy/AdvReac Type Severity Reaction Status Date / Time No Known Allergies Allergy Verified 02/22/21 01:38 Home Medications: Home Meds Albuterol [Proair HFA] 2 puff INH Q4H PRN 11/13/17 [History] Roflumilast [Daliresp] 500 mcg PO DAILY 04/20/20 [History] amLODIPine [Norvasc] 5 mg PO DAILY 04/20/20 [History] Albuterol/Ipratropium [DuoNeb 3.0-0.5 MG/3 ML] 3 ml NEB Q8HR PRN 02/20/21 [History] Fluticasone/Umeclidin/Vilanter [Trelegy Ellipta 100-62.5-25 MCG] 1 puff INH GENARO LY 02/20/21 [History] predniSONE [Prednisone] 10 mg PO DAILY 02/20/21 [History] predniSONE [Prednisone] 40 mg PO DAILY #10 tablet 02/20/21 [Rx] guaiFENesin [Guaifenesin ER] 600 mg PO BID PRN 02/22/21 [History] Past Medical History - Past Health History Medical/Surgical History: Denies Medical/Surgical History HEENT History: Reports: Hard of Hearing, Impaired Vision Cardiovascular History: Reports: Hypertension, SOB on Exertion Respiratory History: Reports: COPD, SOB Gastrointestinal History: Reports: None, Other (See Below) Other Gastrointestinal History: inguinal hernia Genitourinary History: Reports: None Musculoskeletal History: Reports: Arthritis, Back Pain, Chronic, Osteoarthritis Other Musculoskeletal History: OA in bilateral knees Neurological History: Reports: None Psychiatric History: Reports: Addiction Other Psychiatric History: alcohol and cigarettes Endocrine/Metabolic History: Reports: None Hematologic History: Reports: None Immunologic History: Reports: None Oncologic (Cancer) History: Reports: None Dermatologic History: Reports: None - Infectious Disease History Infectious Disease History: Reports: None - Past Surgical History HEENT Surgical History: Reports: Oral Surgery, Other (See Below) Other HEENT Surgeries/Procedures: teeth removal 2007 Cardiovascular Surgical History: Reports: None Respiratory Surgical History: Reports: None GI Surgical History: Reports: None Endocrine Surgical History: Reports: None Musculoskeletal Surgical History: Reports: None Social & Family History - Family History Family Medical History: No Pertinent Family History (Denies genetic diseases in the family) HEENT: Reports: None Cardiac: Reports: Heart Failure, Heart Murmur, Pacemaker, Other (See Below) Other Cardiac Family History: mother/father Neurological: Reports: Parkinson's, Other (See Below) Other Neurological Family History: father Oncologic: Reports: Prostate, Other (See Below) Other Oncologic Family History: father - Tobacco Use Tobacco Use Status *Q: Current Every Day Tobacco User Years of Tobacco use: 40 Packs/Tins Daily: 1 - Caffeine Use Caffeine Use: Reports: Coffee Other Caffeine Use: 1 cup a day - Alcohol Use Number of Drinks Per Day: 1 Date of Last Drink: 02/21/21 Time of Last Drink: 20:00 - Recreational Drug Use Recreational Drug Use: No - Living Situation & Occupation Living situation: Reports: , Alone 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) H&P Review of Systems - Review of Systems: Review Of Systems: See Below General: Reports: No Symptoms HEENT: Reports: No Symptoms Pulmonary: Reports: Shortness of Breath, Cough, Sputum Cardiovascular: Reports: No Symptoms Gastrointestinal: Reports: No Symptoms Genitourinary: Reports: No Symptoms Musculoskeletal: Reports: No Symptoms Skin: Reports: No Symptoms Psychiatric: Reports: No Symptoms Neurological: Reports: No Symptoms Hematologic/Lymphatic: Reports: No Symptoms Immunologic: Reports: No Symptoms Exam - Exam Exam: See Below - Vital Signs Vital Signs: Last Vital Signs Temp 36.7 C 02/22/21 07:59 Pulse 89 02/22/21 08:02 Resp 16 02/22/21 08:02 BP 97/78 02/22/21 07:59 Pulse Ox 98 02/22/21 08:02 Weight: 76.294 kg - Exam General: Alert, Oriented, Cooperative, Mild Distress (Due to shortness of breath) HEENT: Conjunctiva Clear, EOMI, Pupils Equal, Pupils Reactive Neck: Supple, Full Range of Motion. No: JVD Lungs: Decreased Breath Sounds, Rhonchi, Wheezing Cardiovascular: Regular Rate, Regular Rhythm, Normal S1, Normal S2 GI/Abdominal Exam: Normal Bowel Sounds, Soft, Non-Tender, No Organomegaly, No Distention Extremities: Normal Inspection, Normal Range of Motion, Non-Tender, No Pedal Edema Skin: Warm, Dry, Intact Neurological: Strength Equal Bilateral, Normal Speech, Normal Tone, Sensation Intact Neuro Extensive - Mental Status: Alert, Oriented x3, Normal Mood/Affect Psychiatric: Alert, Normal Affect, Normal Mood - Patient Data Lab Results Last 24 hrs: Laboratory Results - last 24 hr 02/22/21 02/22/21 02/22/21 Range/Units 01:26 01:26 01:26 WBC 14.36 H (4.23-9.07) K/mm3 RBC 6.34 H (4.63-6.08) M/mm3 Hgb 21.1 H D (13.7-17.5) gm/dl Hct 62.5 H (40.1-51.0) % MCV 98.9 H (79.0-92.2) fl MCH 33.3 H (25.7-32.2) pg MCHC 33.7 (32.2-35.5) g/dl RDW Std Deviation 52.6 H (35.1-43.9) fL Plt Count 192 (163-337) K/mm3 MPV 11.3 (9.4-12.3) fl Neut % (Auto) 72.6 H (34.0-67.9) % Lymph % (Auto) 17.1 L (21.8-53.1) % [place] % (Auto) 9.8 (5.3-12.2) % Eos % (Auto) 0.1 L (0.8-7.0) Baso % (Auto) 0.1 (0.1-1.2) % Neut # (Auto) 10.43 H (1.78-5.38) K/mm3 Lymph # (Auto) 2.45 (1.32-3.57) K/mm3 [place] # (Auto) 1.41 H (0.30-0.82) K/mm3 Eos # (Auto) 0.01 L (0.04-0.54) K/mm3 Baso # (Auto) 0.01 (0.01-0.08) K/mm3 Manual Slide Review Abnormal smear Puncture Site ABG pH (7.35-7.45) ABG pCO2 (35.0-45.0) mmHg ABG pO2 (80.0-100.0) mmHg ABG HCO3 (22.0-26.0) meq/L ABG O2 Saturation (96.0-97.0) % ABG Base Excess (-2-2.0) Karan Test A-a Gradient mmHg O2 Delivery Device FiO2 (21.00-100.00) % Sodium 143 (136-145) mEq/L Potassium 3.4 L (3.5-5.1) mEq/L Chloride 103 (98-107) mEq/L Carbon Dioxide 26 (21-32) mEq/L Anion Gap 17.4 H (5-15) BUN 14 (7-18) mg/dL Creatinine 1.0 (0.7-1.3) mg/dL Est Cr Clr Drug Dosing TNP Estimated GFR (MDRD) > 60 (>60) mL/min BUN/Creatinine Ratio 14.0 (14-18) Glucose 114 H (70-99) mg/dL Calcium 9.1 (8.5-10.1) mg/dL Total Bilirubin 1.4 H (0.2-1.0) mg/dL AST 16 (15-37) U/L ALT 31 (16-63) U/L Alkaline Phosphatase 125 H (46-116) U/L Troponin I < 0.017 (0.00-0.056) ng/mL C-Reactive Protein <0.2 (<1.0) mg/dL NT-Pro-B Natriuret Pep (0-125) pg/mL Total Protein 8.6 H (6.4-8.2) g/dl Albumin 4.4 (3.4-5.0) g/dl Globulin 4.2 gm/dL Albumin/Globulin Ratio 1.1 (1-2) SARS-CoV-2 RNA (KALIN) (NEGATIVE) 02/22/21 02/22/21 02/22/21 Range/Units 01:26 06:10 06:27 WBC (4.23-9.07) K/mm3 RBC (4.63-6.08) M/mm3 Hgb (13.7-17.5) gm/dl Hct (40.1-51.0) % MCV (79.0-92.2) fl MCH (25.7-32.2) pg MCHC (32.2-35.5) g/dl RDW Std Deviation (35.1-43.9) fL Plt Count (163-337) K/mm3 MPV (9.4-12.3) fl Neut % (Auto) (34.0-67.9) % Lymph % (Auto) (21.8-53.1) % [place] % (Auto) (5.3-12.2) % Eos % (Auto) (0.8-7.0) Baso % (Auto) (0.1-1.2) % Neut # (Auto) (1.78-5.38) K/mm3 Lymph # (Auto) (1.32-3.57) K/mm3 [place] # (Auto) (0.30-0.82) K/mm3 Eos # (Auto) (0.04-0.54) K/mm3 Baso # (Auto) (0.01-0.08) K/mm3 Manual Slide Review Puncture Site Lt radial ABG pH 7.36 (7.35-7.45) ABG pCO2 45.4 H (35.0-45.0) mmHg ABG pO2 52.0 L (80.0-100.0) mmHg ABG HCO3 25.2 (22.0-26.0) meq/L ABG O2 Saturation 84.4 L (96.0-97.0) % ABG Base Excess -0.2 (-2-2.0) Karan Test Positive A-a Gradient 41 mmHg O2 Delivery Device Room air FiO2 21.00 (21.00-100.00) % Sodium (136-145) mEq/L Potassium (3.5-5.1) mEq/L Chloride (98-107) mEq/L Carbon Dioxide (21-32) mEq/L Anion Gap (5-15) BUN (7-18) mg/dL Creatinine (0.7-1.3) mg/dL Est Cr Clr Drug Dosing Estimated GFR (MDRD) (>60) mL/min BUN/Creatinine Ratio (14-18) Glucose (70-99) mg/dL Calcium (8.5-10.1) mg/dL Total Bilirubin (0.2-1.0) mg/dL AST (15-37) U/L ALT (16-63) U/L Alkaline Phosphatase (46-116) U/L Troponin I (0.00-0.056) ng/mL C-Reactive Protein (<1.0) mg/dL NT-Pro-B Natriuret Pep 80 (0-125) pg/mL Total Protein (6.4-8.2) g/dl Albumin (3.4-5.0) g/dl Globulin gm/dL Albumin/Globulin Ratio (1-2) SARS-CoV-2 RNA (KALIN) Negative (NEGATIVE) Result Diagrams: 02/22/21 01:26 02/22/21 01:26 Sepsis Event Note - Evaluation Sepsis Screening Result: No Definite Risk - Focused Exam Vital Signs: Vital Signs Temp Temp Pulse Pulse Pulse Resp BP 02/22/21 08:02 89 16 02/22/21 07:59 36.7 C 96 24 H 97/78 02/22/21 07:28 02/22/21 06:36 99 20 02/22/21 06:27 02/22/21 05:31 90 20 02/22/21 04:36 97 20 02/22/21 03:00 02/22/21 02:57 02/22/21 02:48 110 H 22 H 02/22/21 02:22 02/22/21 02:04 110 H 24 H 02/22/21 01:29 35.8 C L 136 H 30 H 02/22/21 01:27 BP Pulse Ox Pulse Ox 02/22/21 08:02 98 02/22/21 07:59 91 L 02/22/21 07:28 93 L 02/22/21 06:36 123/77 90 L 02/22/21 06:27 92 L 02/22/21 05:31 117/80 89 L 02/22/21 04:36 92/52 L 93 L 02/22/21 03:00 94 L 02/22/21 02:57 97 02/22/21 02:48 93 L 02/22/21 02:22 95 02/22/21 02:04 114/90 92 L 02/22/21 01:29 126/87 86 L 02/22/21 01:27 91 L Problem List Initiated/Reviewed/Updated: Yes Orders Last 24hrs: Active Orders 24 hr Category Date Time Status Admission Status [Patient Status] [ADT] Routine ADT 02/22/21 06:53 Active Activity as Tolerated [RC] .Routine Care 02/22/21 07:37 Active Cardiac Monitoring [RC] CONTINUOUS Care 02/22/21 10:01 Ordered Intake and Output [RC] QSHIFT Care 02/22/21 10:01 Ordered Oxygen Therapy [RC] ASDIRECTED Care 02/22/21 01:23 Active Oxygen Therapy [RC] PRN Care 02/22/21 10:00 Ordered Peripheral IV Care [RC] . DIRECTED Care 02/22/21 01:24 Active Pulse Oximetry [RC] CONTINUOUS Care 02/22/21 10:01 Ordered RT Aerosol Therapy [RC] ASDIRECTED Care 02/22/21 07:28 Active RT Aerosol Therapy [RC] ASDIRECTED Care 02/22/21 10:02 Ordered RT Post Treatment Assessment [RC] Click to Edit Care 02/22/21 10:09 Ordered RT Pre-Treatment Assessment [RC] Click to Edit Care 02/22/21 10:09 Ordered Up to Chair [RC] ASDIRECTED Care 02/22/21 10:00 Ordered VTE/DVT Education [RC] PER UNIT ROUTINE Care 02/22/21 10:00 Ordered Vital Signs [RC] Q4H Care 02/22/21 10:00 Ordered OT Evaluation and Treatment [CONS] Routine Cons 02/22/21 10:00 Ordered PT Evaluation and Treatment [CONS] Routine Cons 02/22/21 10:00 Ordered Regular Diet [DIET] Diet 02/22/21 Lunch Active CBC WITH AUTO DIFF [HEME] DAILY Lab 02/23/21 05:00 Ordered CBC WITH AUTO DIFF [HEME] DAILY Lab 02/24/21 05:00 Ordered CBC WITH AUTO DIFF [HEME] DAILY Lab 02/25/21 05:00 Ordered CBC WITH AUTO DIFF [HEME] DAILY Lab 02/26/21 05:00 Ordered CBC WITH AUTO DIFF [HEME] DAILY Lab 02/27/21 05:00 Ordered COMPREHENSIVE METABOLIC PN,CMP [CHEM] DAILY Lab 02/23/21 05:00 Ordered COMPREHENSIVE METABOLIC PN,CMP [CHEM] DAILY Lab 02/24/21 05:00 Ordered COMPREHENSIVE METABOLIC PN,CMP [CHEM] DAILY Lab 02/25/21 05:00 Ordered COMPREHENSIVE METABOLIC PN,CMP [CHEM] DAILY Lab 02/26/21 05:00 Ordered COMPREHENSIVE METABOLIC PN,CMP [CHEM] DAILY Lab 02/27/21 05:00 Ordered CULTURE SPUTUM + SMEAR [RM] Stat Lab 02/22/21 10:00 Ordered MAGNESIUM [CHEM] DAILY Lab 02/23/21 05:00 Ordered Acetaminophen [TylenoL] Med 02/22/21 10:00 Ordered 650 mg PO Q6H PRN Acetaminophen/HYDROcodone [[place] 325-5 MG] Med 02/22/21 10:00 Ordered 1 tab PO Q6H PRN Albuterol [Proventil HFA] Med 02/22/21 10:08 Ordered 2 puff INH Q4H PRN Albuterol/Ipratropium [DuoNeb 3.0-0.5 MG/3 ML] Med 02/22/21 10:00 Ordered 3 ml NEB Q4H PRN Azithromycin [Zithromax] Med 02/22/21 10:15 Ordered 250 mg PO DAILY Dextrose 5%-Lact Ringers w/KCl [D5 LR with 20 mEq KCl] Med 02/22/21 10:15 Ordered 1,000 ml IV ASDIRECTED Docusate Sodium [Colace] Med 02/22/21 10:00 Ordered 100 mg PO BID PRN Enoxaparin [Lovenox] Med 02/22/21 10:15 Ordered 40 mg SUBCUT DAILY Fluticasone/Umeclidin/Vilanter Med 02/22/21 10:15 Ordered 1 puff INH DAILY Promethazine [Phenergan] 12.5 mg Med 02/22/21 10:00 Ordered Sodium Chloride 0.9% [Normal Saline] 50 ml IV Q6H Roflumilast [Daliresp] Med 02/22/21 10:15 Ordered 500 mcg PO DAILY Sodium Chloride 0.9% [Saline Flush] Med 02/22/21 01:24 Active 10 ml FLUSH ASDIRECTED PRN amLODIPine [Norvasc] Med 02/22/21 10:15 Ordered 5 mg PO DAILY guaiFENesin [Mucinex] Med 02/22/21 10:08 Ordered 600 mg PO BID PRN hydrALAZINE [Apresoline] Med 02/22/21 10:11 Ordered 10 mg IVPUSH Q4H PRN methylPREDNISolone Sod Succ [Solu-MEDROL] Med 02/22/21 11:00 Active 60 mg IVPUSH Q8H Peripheral IV Insertion Adult [OM.PC] Stat Oth 02/22/21 01:23 Ordered Code Status [Resuscitation Status] Routine Resus Stat 02/22/21 07:36 Ordered Medication Orders Acetaminophen (Acetaminophen 325 Mg Tab) 650 mg PO Q6H PRN PRN Reason: Pain (Mild 1-3)/fever Hydrocodone Bitart/Acetaminophen (Acetaminophen/Hydrocodone 325-5 Mg Tab) 1 tab PO Q6H PRN PRN Reason: Pain (moderate 4-6) Albuterol (Albuterol 6.7 Gm Inhaler) 0 gm INH Q4H PRN PRN Reason: Wheezing Albuterol/Ipratropium (Albuterol/Ipratropium 3.0-0.5 Mg/3 Ml Neb Soln) 3 ml NEB Q4H PRN PRN Reason: Shortness Of Breath/wheezing Amlodipine Besylate (Amlodipine 5 Mg Tab) 5 mg PO DAILY [facility] Azithromycin (Azithromycin 250 Mg Tab) 250 mg PO DAILY [facility] Docusate Sodium (Docusate Sodium 100 Mg Cap) 100 mg PO BID PRN PRN Reason: Constipation Enoxaparin Sodium (Enoxaparin 40 Mg/0.4 Ml Syringe) 40 mg SUBCUT DAILY [facility] Guaifenesin (Guaifenesin 600 Mg Tab.Er) 600 mg PO BID PRN PRN Reason: Congestion Hydralazine HCl (Hydralazine 20 Mg/Ml Sdv) 10 mg IVPUSH Q4H PRN PRN Reason: Hypertension Promethazine HCl 12.5 mg/ (Sodium Chloride) 50.5 mls @ 100 mls/hr IV Q6H PRN PRN Reason: Nausea/Vomiting Potassium Cl/Dextrose/Lact Ringer's (D5 Lr With 20 Meq Kcl) 1,000 mls @ 50 mls/hr IV ASDIRECTED [facility] Methylprednisolone Sodium Succinate (Methylprednisolone Sodium Succinate 40 Mg/1 Ml Sdv) 60 mg IVPUSH Q8H [facility] Non-Formulary Medication (Fluticasone/Umeclidin/Vilanter) 1 puff INH DAILY [facility] Roflumilast [ Daliresp] 500 Mcg Tab Ptom 0 mcg PO DAILY [facility] Sodium Chloride (Sodium Chloride 0.9% 10 Ml Syringe) 10 ml FLUSH ASDIRECTED PRN PRN Reason: Keep Vein Open Last Admin: 02/22/21 01:40 Dose: 10 ml Documented by: OLIVIA Assessment/Plan Comment:: Patient is a 60-year-old male with a history of COPD, current smoker and hypertension who presented to the ER due to worsening shortness of breath. As per patient, patient started to have shortness of breath 5 to 6 years ago which has been worsening over the past 4 weeks. Assessment and plan: Acute on hypoxic respiratory failure -Not on home oxygen -BNP 80 -Troponin < 0.017 -Pulse ox -Oxygen therapy to keep oxygen saturation greater than 92% COPD exacerbation -History of COPD -Current smoker -CXR - probable emphysematous change. No acute change -Solu medrol 60mg iv Q8hrs -Azithromycin 250mg po daily -roflumilast 500mcg daily -Inhalers -Sputum culture Tobacco abuse disorder -Smoking cessation counseling -Nicotine patch Polycythemia and hyperhemoglobinemia -Could be due to hypoxia/chronic COPD or dehydration -Na 143 and calcium 9.1 -D5 LR KCl 20mEq 50ml/hr -Repeat CBC in morning Hypokalemia -Replete it and repeat HTN -continue amlodipine 5mg daily -Hydralazine as needed DVT prophylaxis: Lovenox CODE STATUS: Full Disposition: Around 2 days - Mortality Measure Prognosis:: Good
[2021-02-22] MEDS: methylPREDNISolone Sodium Succinate 40 MG/1 ML SDV IVPUSH SCH ×2 (10:29→18:33)
[2021-02-22] MEDS: FLUTICASONE INH SCH (10:57)
[2021-02-22] MEDS: UMECLIDIN INH SCH (10:57)
[2021-02-22] MEDS: VILANTER INH SCH (10:57)
[2021-02-22] MEDS: Albuterol/Ipratropium 3.0-0.5 MG/3 ML Neb Soln NEB PRN ×3 (10:57→20:18)
[2021-02-22] MEDS: Nicotine 7 MG/24 Hr Patch TRDERM SCH (11:11)
[2021-02-23] MEDS: methylPREDNISolone Sodium Succinate 40 MG/1 ML SDV IVPUSH SCH ×3 (03:40→18:19)
[2021-02-23] MEDS: Albuterol/Ipratropium 3.0-0.5 MG/3 ML Neb Soln NEB PRN ×2 (03:56→08:57)
[2021-02-23] MEDS: Dextrose 5%-Lact Ringers w/KCl 1,000 ML IV SCH (05:00)
[2021-02-23] MEDS: Nicotine 7 MG/24 Hr Patch TRDERM SCH (08:02)
[2021-02-23] MEDS: Enoxaparin 40 MG/0.4 ML Syringe SUBCUT SCH (08:03)
[2021-02-23] MEDS: Azithromycin 250 MG Tab PO SCH (08:04)
[2021-02-23] MEDS: amLODIPine 5 MG Tab PO SCH (08:04)
[2021-02-23] MEDS: ROFLUMILAST 500 MCG PO SCH (08:05)
[2021-02-23] MEDS: UMECLIDIN INH SCH (08:06)
[2021-02-23] MEDS: FLUTICASONE INH SCH (08:06)
[2021-02-23] MEDS: VILANTER INH SCH (08:06)
--- NOTE | 2021-02-23 08:50 | PCM.PN ---
- General Info Date of Service: 02/23/21 Admission Dx/Problem (Free Text): COPD exacerbation with acute respiratory failure. Subjective Update: The patient is a 60-year-old gentleman who was admitted to acute hospitalization yesterday secondary to COPD exacerbation. The patient is a current smoker. He has not used oxygen at home. The patient today says that he is very short of breath still. He is also having difficulty breathing. He has denied any pain. The patient reports that he had a breathing treatment approximately 5 AM. Functional Status: Reports: Pain Controlled, Tolerating Diet - Review of Systems General: Reports: Weakness, Fatigue HEENT: Reports: No Symptoms Pulmonary: Reports: Shortness of Breath, Wheezing Cardiovascular: Reports: No Symptoms Gastrointestinal: Reports: No Symptoms Genitourinary: Reports: No Symptoms Musculoskeletal: Reports: No Symptoms Skin: Reports: No Symptoms Neurological: Reports: No Symptoms Psychiatric: Reports: No Symptoms - Patient Data Vitals - Most Recent: Last Vital Signs Temp 36.7 C 02/23/21 07:14 Pulse 77 02/23/21 07:14 Resp 16 02/23/21 07:14 BP 119/81 02/23/21 08:04 Pulse Ox 91 L 02/23/21 07:14 Weight - Most Recent: 76.158 kg I&O - Last 24 Hours: Intake & Output 02/22/21 02/23/21 02/23/21 22:59 06:59 14:59 Intake Total 722 1009 Output Total 975 Balance 722 34 Lab Results Last 24 Hours: Laboratory Results - last 24 hr 02/23/21 02/23/21 Range/Units 06:01 06:01 WBC 12.69 H (4.23-9.07) K/mm3 RBC 5.52 (4.63-6.08) M/mm3 Hgb 18.3 H D (13.7-17.5) gm/dl Hct 54.6 H (40.1-51.0) % MCV 98.9 H (79.0-92.2) fl MCH 33.2 H (25.7-32.2) pg MCHC 33.5 (32.2-35.5) g/dl RDW Std Deviation 50.9 H (35.1-43.9) fL Plt Count 141 L (163-337) K/mm3 MPV 11.3 (9.4-12.3) fl Neut % (Auto) 90.5 H (34.0-67.9) % Lymph % (Auto) 3.7 L (21.8-53.1) % Benson % (Auto) 5.4 (5.3-12.2) % Eos % (Auto) 0 L (0.8-7.0) Baso % (Auto) 0.0 L (0.1-1.2) % Neut # (Auto) 11.48 H (1.78-5.38) K/mm3 Lymph # (Auto) 0.47 L (1.32-3.57) K/mm3 Benson # (Auto) 0.69 (0.30-0.82) K/mm3 Eos # (Auto) 0.00 L (0.04-0.54) K/mm3 Baso # (Auto) 0.00 L (0.01-0.08) K/mm3 Manual Slide Review Abnormal smear Sodium 141 (136-145) mEq/L Potassium 4.4 (3.5-5.1) mEq/L Chloride 105 (98-107) mEq/L Carbon Dioxide 27 (21-32) mEq/L Anion Gap 13.4 (5-15) BUN 14 (7-18) mg/dL Creatinine 0.7 (0.7-1.3) mg/dL Est Cr Clr Drug Dosing 120.89 mL/min Estimated GFR (MDRD) > 60 (>60) mL/min BUN/Creatinine Ratio 20.0 H (14-18) Glucose 151 H (70-99) mg/dL Calcium 8.7 (8.5-10.1) mg/dL Magnesium 2.3 (1.8-2.4) mg/dL Total Bilirubin 1.6 H (0.2-1.0) mg/dL AST 15 (15-37) U/L ALT 29 (16-63) U/L Alkaline Phosphatase 88 (46-116) U/L Total Protein 6.4 (6.4-8.2) g/dl Albumin 3.2 L (3.4-5.0) g/dl Globulin 3.2 gm/dL Albumin/Globulin Ratio 1.0 (1-2) Med Orders - Current: Current Medications Acetaminophen (Acetaminophen 325 Mg Tab) 650 mg PO Q6H PRN PRN Reason: Pain (Mild 1-3)/fever Hydrocodone Bitart/Acetaminophen (Acetaminophen/Hydrocodone 325-5 Mg Tab) 1 tab PO Q6H PRN PRN Reason: Pain (moderate 4-6) Albuterol (Albuterol 6.7 Gm Inhaler) 0 gm INH Q4H PRN PRN Reason: Wheezing Albuterol/Ipratropium (Albuterol/Ipratropium 3.0-0.5 Mg/3 Ml Neb Soln) 3 ml NEB Q4H PRN PRN Reason: Shortness Of Breath/wheezing Last Admin: 02/23/21 03:56 Dose: 3 ml Documented by: Amlodipine Besylate (Amlodipine 5 Mg Tab) 5 mg PO DAILY [facility] Last Admin: 02/23/21 08:04 Dose: 5 mg Documented by: Azithromycin (Azithromycin 250 Mg Tab) 250 mg PO DAILY [facility] Last Admin: 02/23/21 08:04 Dose: 250 mg Documented by: Docusate Sodium (Docusate Sodium 100 Mg Cap) 100 mg PO BID PRN PRN Reason: Constipation Last Admin: 02/22/21 10:22 Dose: 100 mg Documented by: Enoxaparin Sodium (Enoxaparin 40 Mg/0.4 Ml Syringe) 40 mg SUBCUT DAILY [facility] Last Admin: 02/23/21 08:03 Dose: 40 mg Documented by: Guaifenesin (Guaifenesin 600 Mg Tab.Er) 600 mg PO BID PRN PRN Reason: Congestion Last Admin: 02/22/21 10:20 Dose: 600 mg Documented by: Hydralazine HCl (Hydralazine 20 Mg/Ml Sdv) 10 mg IVPUSH Q4H PRN PRN Reason: Hypertension Promethazine HCl 12.5 mg/ (Sodium Chloride) 50.5 mls @ 100 mls/hr IV Q6H PRN PRN Reason: Nausea/Vomiting Potassium Cl/Dextrose/Lact Ringer's (D5 Lr With 20 Meq Kcl) 1,000 mls @ 50 mls/hr IV ASDIRECTED [facility] Last Admin: 02/23/21 05:00 Dose: 50 mls/hr Documented by: Methylprednisolone Sodium Succinate (Methylprednisolone Sodium Succinate 40 Mg/1 Ml Sdv) 60 mg IVPUSH Q8H [facility] Last Admin: 02/23/21 03:40 Dose: 60 mg Documented by: Miscellaneous Information (Remove Patch *Nicotine*) 1 ea TRDERM DAILY [facility] Last Admin: 02/23/21 08:03 Dose: 1 ea Documented by: Nicotine (Nicotine 7 Mg/24 Hr Patch) 7 mg TRDERM DAILY [facility] Last Admin: 02/23/21 08:02 Dose: 7 mg Documented by: Fluticasone/Umeclidin/Vilanter ( Trelegy Inhaler) Ptom 1 puff INH DAILY [facility] Last Admin: 02/23/21 08:06 Dose: 1 puff Documented by: Roflumilast [ Daliresp] 500 Mcg Tab Ptom 0 mcg PO DAILY [facility] Last Admin: 02/23/21 08:05 Dose: 500 mcg Documented by: Sodium Chloride (Sodium Chloride 0.9% 10 Ml Syringe) 10 ml FLUSH ASDIRECTED PRN PRN Reason: Keep Vein Open Last Admin: 02/22/21 01:40 Dose: 10 ml Documented by: Discontinued Medications Albuterol (Albuterol 0.083% 2.5 Mg/3 Ml Neb Soln) 2.5 mg NEB ONETIME ONE Stop: 02/22/21 02:11 Last Admin: 02/22/21 02:20 Dose: 2.5 mg Documented by: Albuterol (Albuterol 0.083% 2.5 Mg/3 Ml Neb Soln) 2.5 mg NEB ONETIME ONE Stop: 02/22/21 07:29 Last Admin: 02/22/21 07:39 Dose: 2.5 mg Documented by: Albuterol/Ipratropium (Albuterol/Ipratropium 3.0-0.5 Mg/3 Ml Neb Soln) Confirm Administered Dose 3 ml .ROUTE .STK-MED ONE Stop: 02/22/21 01:21 Last Admin: 02/22/21 01:27 Dose: 3 ml Documented by: Albuterol/Ipratropium (Albuterol/Ipratropium 3.0-0.5 Mg/3 Ml Neb Soln) 3 ml NEB ONETIME ONE Stop: 02/22/21 01:21 Last Admin: 02/22/21 01:36 Dose: Not Given Documented by: Albuterol/Ipratropium (Albuterol/Ipratropium 3.0-0.5 Mg/3 Ml Neb Soln) 3 ml NEB ONETIME ONE Stop: 02/22/21 06:09 Last Admin: 02/22/21 06:26 Dose: 3 ml Documented by: Methylprednisolone Sodium Succinate (Methylprednisolone Sodium Succinate 125 Mg/2 Ml Sdv) 125 mg IVPUSH ONETIME ONE Stop: 02/22/21 01:25 Last Admin: 02/22/21 01:39 Dose: 125 mg Documented by: - Exam Quality Assessment: Supplemental Oxygen General: Alert, Oriented, Moderate Distress, Other (Tripod posture) HEENT: Pupils Equal, Pupils Reactive, EOMI. No: Mucous Membr. Moist/[place] (Dry) Neck: Supple, Trachea Midline Lungs: Decreased Breath Sounds, Crackles (Globally), Rales. No: Normal Re spiratory Effort (Use of accessory muscles) Cardiovascular: Regular Rate, Regular Rhythm GI/Abdominal Exam: Normal Bowel Sounds, Soft, No Distention (Male) Exam: Deferred Back Exam: Normal Inspection Extremities: Normal Inspection, No Pedal Edema Skin: Warm, Dry, Intact Neurological: No New Focal Deficit Psy/Mental Status: Alert, Normal Affect, Anxious - Patient Data Lab Results Last 24 hrs: Laboratory Results - last 24 hr 02/23/21 02/23/21 Range/Units 06:01 06:01 WBC 12.69 H (4.23-9.07) K/mm3 RBC 5.52 (4.63-6.08) M/mm3 Hgb 18.3 H D (13.7-17.5) gm/dl Hct 54.6 H (40.1-51.0) % MCV 98.9 H (79.0-92.2) fl MCH 33.2 H (25.7-32.2) pg MCHC 33.5 (32.2-35.5) g/dl RDW Std Deviation 50.9 H (35.1-43.9) fL Plt Count 141 L (163-337) K/mm3 MPV 11.3 (9.4-12.3) fl Neut % (Auto) 90.5 H (34.0-67.9) % Lymph % (Auto) 3.7 L (21.8-53.1) % Benson % (Auto) 5.4 (5.3-12.2) % Eos % (Auto) 0 L (0.8-7.0) Baso % (Auto) 0.0 L (0.1-1.2) % Neut # (Auto) 11.48 H (1.78-5.38) K/mm3 Lymph # (Auto) 0.47 L (1.32-3.57) K/mm3 Benson # (Auto) 0.69 (0.30-0.82) K/mm3 Eos # (Auto) 0.00 L (0.04-0.54) K/mm3 Baso # (Auto) 0.00 L (0.01-0.08) K/mm3 Manual Slide Review Abnormal smear Sodium 141 (136-145) mEq/L Potassium 4.4 (3.5-5.1) mEq/L Chloride 105 (98-107) mEq/L Carbon Dioxide 27 (21-32) mEq/L Anion Gap 13.4 (5-15) BUN 14 (7-18) mg/dL Creatinine 0.7 (0.7-1.3) mg/dL Est Cr Clr Drug Dosing 120.89 mL/min Estimated GFR (MDRD) > 60 (>60) mL/min BUN/Creatinine Ratio 20.0 H (14-18) Glucose 151 H (70-99) mg/dL Calcium 8.7 (8.5-10.1) mg/dL Magnesium 2.3 (1.8-2.4) mg/dL Total Bilirubin 1.6 H (0.2-1.0) mg/dL AST 15 (15-37) U/L ALT 29 (16-63) U/L Alkaline Phosphatase 88 (46-116) U/L Total Protein 6.4 (6.4-8.2) g/dl Albumin 3.2 L (3.4-5.0) g/dl Globulin 3.2 gm/dL Albumin/Globulin Ratio 1.0 (1-2) Result Diagrams: 02/23/21 06:01 02/23/21 06:01 Sepsis Event Note - Evaluation Sepsis Screening Result: No Definite Risk - Focused Exam Vital Signs: Vital Signs Temp Pulse Resp BP Pulse Ox Pulse Ox 02/23/21 08:04 119/81 02/23/21 07:14 36.7 C 77 16 119/81 91 L 02/23/21 03:56 90 L 02/23/21 03:41 36.7 C 90 22 H 134/84 92 L 06/21/21 00:00 93 L - Problem List & Annotations (1) Acute respiratory failure SNOMED Code(s): 98468132 Code(s): J96.00 - ACUTE RESPIRATORY FAILURE, UNSP W HYPOXIA OR HYPERCAPNIA Status: Acute Priority: High Current Visit: Yes Qualifiers: Respiratory failure complication: hypoxia Qualified Code(s): J96.01 - Acute respiratory failure with hypoxia (2) COPD exacerbation SNOMED Code(s): 199005550 Code(s): J44.1 - CHRONIC OBSTRUCTIVE PULMONARY DISEASE W (ACUTE) EXACERBATION Status: Acute Priority: High Current Visit: Yes (3) Tobacco abuse disorder SNOMED Code(s): 506383984 Code(s): Z72.0 - TOBACCO USE Status: Chronic Priority: Medium Current Visit: Yes - Problem List Review Problem List Initiated/Reviewed/Updated: Yes - Plan Plan:: Patient is a 60-year-old male with a history of COPD, current smoker and hypertension who presented to the ER due to worsening shortness of breath. As per patient, patient started to have shortness of breath 5 to 6 years ago which has been worsening over the past 4 weeks. Assessment and plan: Acute on hypoxic respiratory failure -Not on home oxygen -BNP 80 -Troponin < 0.017 -Pulse ox -Oxygen therapy to keep oxygen saturation greater than 92% COPD exacerbation -History of COPD -Current smoker -CXR - probable emphysematous change. No acute change -Solu medrol 60mg iv Q8hrs -Azithromycin 250mg po daily -roflumilast 500mcg daily -Inhalers -Sputum culture Tobacco abuse disorder -Smoking cessation counseling -Nicotine patch Polycythemia and hyperhemoglobinemia -Could be due to hypoxia/chronic COPD or dehydration -Na 143 and calcium 9.1 -D5 LR KCl 20mEq 50ml/hr -Repeat CBC in morning Hypokalemia -Replete it and repeat HTN -continue amlodipine 5mg daily -Hydralazine as needed DVT prophylaxis: Lovenox CODE STATUS: Full Disposition: Around 2 days 02/23/2021 The patient is in some respiratory distress due to his COPD exacerbation. I had his discussion with respiratory to increase his oxygen with high flow oxygen and perhaps if needed BiPAP. I have discussed oxygen requirements with the patient and the possible need for intubation. The patient will be kept on oxygen to keep his oxygen saturations around 92%. He is currently on a azithromycin and IV steroids. These will be continued. He also has a nicotine patch for his tobacco dependency. He has been strongly counseled with regards to smoking cessation. The patient will continue with the DVT prophylaxis with the use of Lovenox. Repeat laboratory studies have been ordered in the morning. Once the patient has improved sufficiently he will have an off oxygen ambulation and I suspect that the patient will require home oxygen. He should be appropriate for discharge in 2 days or more.
[2021-02-23] MEDS ORDERED: Albuterol 0.083% 2.5 MG/3 ML Neb Soln NEB PRN (09:33)
[2021-02-23] MEDS: Albuterol/Ipratropium 3.0-0.5 MG/3 ML Neb Soln NEB SCH ×2 (13:15→18:12)
[2021-02-23] MEDS ORDERED: LORazepam 2 MG/ML SDV IVPUSH PRN (15:59)
[2021-02-23 16:29] VITALS: PULSE 71
[2021-02-23] MEDS ORDERED: propofoL 100 ML ONE (19:24)
--- NOTE | 2021-02-23 19:28 | PCM.SN.2 ---
- Free Text/Narrative Note: Was called into the patient bedside and 191 due to rapid response. The patient had been in severe respiratory distress and BiPAP was not helping. Blood gases were obtained which showed a pH of 7.08, PCO2 was at 91.5 mmHg, PaO2 was at 71 mmHg. The patient was not moving air well. And as a result of the patient's pH and PCO2 a decision was made to intubate. The patient will have to be transferred and phone calls were made.
--- NOTE | 2021-02-23 19:28 | PCM.DCSUM1 ---
Discharge Summary - Discharge Data Discharge Date: 02/23/21 Discharge Disposition: DC/Tfer to Acute Hospital 02 Condition: Serious - Referral to Home Health Primary Care Physician: Huan Gonzalez MD - Discharge Diagnosis/Problem(s) (1) Acute respiratory failure SNOMED Code(s): 45040666 ICD Code: J96.00 - ACUTE RESPIRATORY FAILURE, UNSP W HYPOXIA OR HYPERCAPNIA Status: Acute Priority: High Current Visit: Yes Qualifiers: Respiratory failure complication: hypoxia Qualified Code(s): J96.01 - Acute respiratory failure with hypoxia (2) COPD exacerbation SNOMED Code(s): 201580727 ICD Code: J44.1 - CHRONIC OBSTRUCTIVE PULMONARY DISEASE W (ACUTE) EXACERBATION Status: Acute Priority: High Current Visit: Yes (3) Tobacco abuse disorder SNOMED Code(s): 556396063 ICD Code: Z72.0 - TOBACCO USE Status: Chronic Priority: Medium Current Visit: Yes - Patient Summary/Data Consults: Consultations 02/22/21 10:00 OT Evaluation and Treatment [CONS] Routine PT Evaluation and Treatment [CONS] Routine Hospital Course: The patient is a 60-year-old gentleman who had been admitted to acute hospitalization secondary to COPD exacerbation and acute on chronic respiratory failure. Patient had been started on IV antibiotics and IV steroids. The patient had been on oxygen via nasal cannula and he had been transitioned to high flow oxygen in order to help his shortness of breath. The provider was called to the patient bedside at 1915 due to rapid response. The patient had been in severe distress and BiPAP was not helping. Patient was tripoding. Blood gas was obtained which showed a pH of 7.08, PCO2 was at 91.5 mmHg, PaO2 with at 71 mmHg. The patient also was not moving air very well. He had been intubated and he was also placed on continuous albuterol treatment as well as Versed drip at 4 mcg/h. He also had been given a chest x-ray post intubation which showed that the ET tube was at 24 cm at his incisors. It had also been recommended by the critical care physician, Dr. Brand, that the patient have targeted high minute ventilation with a tidal volume of 500 however ER physician reported that this was not possible secondary to peak pressure alarms. The patient was further sedated with a Versed and propofol and it is hoped that we can have the high minute ventilation in order to reduce his CO2. D-dimer and troponin were also obtained and results are pending. The patient did not have D- dimer or CT angio of his chest on admission yesterday. The patient will be transferred via air ambulance due to his intubation and instability. Dr. Brand, critical care at [facility] is excepting. - Discharge Plan *PRESCRIPTION DRUG MONITORING PROGRAM REVIEWED*: No *COPY OF PRESCRIPTION DRUG MONITORING REPORT IN PATIENT JORGE: No Home Medications: Home Meds Albuterol [Proair HFA] 2 puff INH Q4H PRN 11/13/17 [History] Roflumilast [Daliresp] 500 mcg PO DAILY 04/20/20 [History] amLODIPine [Norvasc] 5 mg PO DAILY 04/20/20 [History] Albuterol/Ipratropium [DuoNeb 3.0-0.5 MG/3 ML] 3 ml NEB Q8HR PRN 02/20/21 [History] Fluticasone/Umeclidin/Vilanter [Trelegy Ellipta 100-62.5-25 MCG] 1 puff INH DAILY 02/20/21 [History] predniSONE [Prednisone] 5 mg PO DAILY 02/20/21 [History] predniSONE [Prednisone] 40 mg PO DAILY #10 tablet 02/20/21 [Rx] guaiFENesin [Guaifenesin ER] 600 mg PO BID PRN 02/22/21 [History] Patient Handouts: Steps to Quit Smoking, [id number], Chronic Obstructive Pulmonary Disease, [id number], Home Oxygen Use, Adult Referrals: Huan Gonzalez MD [Primary Care Provider] - 03/04/21 1:00 pm (Please come 15 minutes prior to your appointment to register. ) - Discharge Summary/Plan Comment DC Time >30 min.: Yes - General Info Date of Service: 02/23/21 Admission Dx/Problem (Free Text: COPD exacerbation with acute respiratory failure. Subjective Update: Intubated and sedated due to severe respiratory distress and blood gas showing pH of 7.08. Functional Status: Reports: Other (Intubated and sedated) - Review of Systems Systems Review Comment: Not able to obtain due to intubation and the patient was not able to speak in full sentences prior to intubation. - Patient Data Vitals - Most Recent: Last Vital Signs Temp 36.7 C 02/23/21 16:17 Pulse 71 02/23/21 16:17 Resp 20 02/23/21 16:17 BP 111/65 02/23/21 16:17 Pulse Ox 95 02/23/21 18:18 Weight - Most Recent: 76.158 kg I&O - Last 24 hours: Intake & Output 02/23/21 02/23/21 02/23/21 06:59 14:59 22:59 Intake Total 3877 455 7386 Output Total 975 850 Balance 34 120 545 Lab Results - Last 24 hrs: Laboratory Results - last 24 hr 02/23/21 02/23/21 Range/Units 06:01 06:01 WBC 12.69 H (4.23-9.07) K/mm3 RBC 5.52 (4.63-6.08) M/mm3 Hgb 18.3 H D (13.7-17.5) gm/dl Hct 54.6 H (40.1-51.0) % MCV 98.9 H (79.0-92.2) fl MCH 33.2 H (25.7-32.2) pg MCHC 33.5 (32.2-35.5) g/dl RDW Std Deviation 50.9 H (35.1-43.9) fL Plt Count 141 L (163-337) K/mm3 MPV 11.3 (9.4-12.3) fl Neut % (Auto) 90.5 H (34.0-67.9) % Lymph % (Auto) 3.7 L (21.8-53.1) % [place] % (Auto) 5.4 (5.3-12.2) % Eos % (Auto) 0 L (0.8-7.0) Baso % (Auto) 0.0 L (0.1-1.2) % Neut # (Auto) 11.48 H (1.78-5.38) K/mm3 Lymph # (Auto) 0.47 L (1.32-3.57) K/mm3 [place] # (Auto) 0.69 (0.30-0.82) K/mm3 Eos # (Auto) 0.00 L (0.04-0.54) K/mm3 Baso # (Auto) 0.00 L (0.01-0.08) K/mm3 Manual Slide Review Abnormal smear Sodium 141 (136-145) mEq/L Potassium 4.4 (3.5-5.1) mEq/L Chloride 105 (98-107) mEq/L Carbon Dioxide 27 (21-32) mEq/L Anion Gap 13.4 (5-15) BUN 14 (7-18) mg/dL Creatinine 0.7 (0.7-1.3) mg/dL Est Cr Clr Drug Dosing 120.89 mL/min Estimated GFR (MDRD) > 60 (>60) mL/min BUN/Creatinine Ratio 20.0 H (14-18) Glucose 151 H (70-99) mg/dL Calcium 8.7 (8.5-10.1) mg/dL Magnesium 2.3 (1.8-2.4) mg/dL Total Bilirubin 1.6 H (0.2-1.0) mg/dL AST 15 (15-37) U/L ALT 29 (16-63) U/L Alkaline Phosphatase 88 (46-116) U/L Total Protein 6.4 (6.4-8.2) g/dl Albumin 3.2 L (3.4-5.0) g/dl Globulin 3.2 gm/dL Albumin/Globulin Ratio 1.0 (1-2) ELEN Results - Last 24 hrs: Microbiology 02/23/21 12:50 Gram Stain - Final Sputum - Expectorated Med Orders - Current: Current Medications Acetaminophen (Acetaminophen 325 Mg Tab) 650 mg PO Q6H PRN PRN Reason: Pain (Mild 1-3)/fever Hydrocodone Bitart/Acetaminophen (Acetaminophen/Hydrocodone 325-5 Mg Tab) 1 tab PO Q6H PRN PRN Reason: Pain (moderate 4-6) Albuterol (Albuterol 6.7 Gm Inhaler) 0 gm INH Q4H PRN PRN Reason: Wheezing Last Admin: 02/23/21 15:38 Dose: 2 inhalation Documented by: Albuterol (Albuterol 0.083% 2.5 Mg/3 Ml Neb Soln) 2.5 mg NEB Q2H PRN PRN Reason: Shortness of Breath Albuterol/Ipratropium (Albuterol/Ipratropium 3.0-0.5 Mg/3 Ml Neb Soln) 3 ml NEB Q4HRRT [facility] Last Admin: 02/23/21 18:12 Dose: 3 ml Documented by: Amlodipine Besylate (Amlodipine 5 Mg Tab) 5 mg PO DAILY [facility] Last Admin: 02/23/21 08:04 Dose: 5 mg Documented by: Azithromycin (Azithromycin 250 Mg Tab) 250 mg PO DAILY [facility] Last Admin: 02/23/21 08:04 Dose: 250 mg Documented by: Docusate Sodium (Docusate Sodium 100 Mg Cap) 100 mg PO BID PRN PRN Reason: Constipation Last Admin: 02/22/21 10:22 Dose: 100 mg Documented by: Enoxaparin Sodium (Enoxaparin 40 Mg/0.4 Ml Syringe) 40 mg SUBCUT DAILY [facility] Last Admin: 02/23/21 08:03 Dose: 40 mg Documented by: Guaifenesin (Guaifenesin 600 Mg Tab.Er) 600 mg PO BID PRN PRN Reason: Congestion Last Admin: 02/22/21 10:20 Dose: 600 mg Documented by: Hydralazine HCl (Hydralazine 20 Mg/Ml Sdv) 10 mg IVPUSH Q4H PRN PRN Reason: Hypertension Promethazine HCl 12.5 mg/ (Sodium Chloride) 50.5 mls @ 100 mls/hr IV Q6H PRN PRN Reason: Nausea/Vomiting Potassium Cl/Dextrose/Lact Ringer's (D5 Lr With 20 Meq Kcl) 1,000 mls @ 50 mls/hr IV ASDIRECTED [facility] Last Admin: 02/23/21 05:00 Dose: 50 mls/hr Documented by: Lorazepam (Lorazepam 2 Mg/Ml Sdv) 0.5 mg IVPUSH Q4H PRN PRN Reason: Anxiety Last Admin: 02/23/21 16:12 Dose: 0.5 mg Documented by: Methylprednisolone Sodium Succinate (Methylprednisolone Sodium Succinate 40 Mg/1 Ml Sdv) 60 mg IVPUSH Q8H [facility] Last Admin: 02/23/21 18:19 Dose: 60 mg Documented by: Miscellaneous Information (Remove Patch *Nicotine*) 1 ea TRDERM DAILY [facility] Last Admin: 02/23/21 08:03 Dose: 1 ea Documented by: Nicotine (Nicotine 7 Mg/24 Hr Patch) 7 mg TRDERM DAILY [facility] Last Admin: 02/23/21 08:02 Dose: 7 mg Documented by: Fluticasone/Umeclidin/Vilanter ( Trelegy Inhaler) Ptom 1 puff INH DAILY [facility] Last Admin: 02/23/21 08:06 Dose: 1 puff Documented by: Roflumilast [ Daliresp] 500 Mcg Tab Ptom 0 mcg PO DAILY [facility] Last Admin: 02/23/21 08:05 Dose: 500 mcg Documented by: Sodium Chloride (Sodium Chloride 0.9% 10 Ml Syringe) 10 ml FLUSH ASDIRECTED PRN PRN Reason: Keep Vein Open Last Admin: 02/22/21 01:40 Dose: 10 ml Documented by: Discontinued Medications Albuterol (Albuterol 0.083% 2.5 Mg/3 Ml Neb Soln) 2.5 mg NEB ONETIME ONE Stop: 02/22/21 02:11 Last Admin: 02/22/21 02:20 Dose: 2.5 mg Documented by: Albuterol (Albuterol 0.083% 2.5 Mg/3 Ml Neb Soln) 2.5 mg NEB ONETIME ONE Stop: 02/22/21 07:29 Last Admin: 02/22/21 07:39 Dose: 2.5 mg Documented by: Albuterol/Ipratropium (Albuterol/Ipratropium 3.0-0.5 Mg/3 Ml Neb Soln) Confirm Administered Dose 3 ml .ROUTE .STK-MED ONE Stop: 02/22/21 01:21 Last Admin: 02/22/21 01:27 Dose: 3 ml Documented by: Albuterol/Ipratropium (Albuterol/Ipratropium 3.0-0.5 Mg/3 Ml Neb Soln) 3 ml NEB ONETIME ONE Stop: 02/22/21 01:21 Last Admin: 02/22/21 01:36 Dose: Not Given Documented by: Albuterol/Ipratropium (Albuterol/Ipratropium 3.0-0.5 Mg/3 Ml Neb Soln) 3 ml NEB ONETIME ONE Stop: 02/22/21 06:09 Last Admin: 02/22/21 06:26 Dose: 3 ml Documented by: Albuterol/Ipratropium (Albuterol/Ipratropium 3.0-0.5 Mg/3 Ml Neb Soln) 3 ml NEB Q4H PRN PRN Reason: Shortness Of Breath/wheezing Last Admin: 02/23/21 08:57 Dose: 3 ml Documented by: Methylprednisolone Sodium Succinate (Methylprednisolone Sodium Succinate 125 Mg/2 Ml Sdv) 125 mg IVPUSH ONETIME ONE Stop: 02/22/21 01:25 Last Admin: 02/22/21 01:39 Dose: 125 mg Documented by: - Exam Quality Assessment: Reports: Supplemental Oxygen (Intubated) General: Denies: Alert, Oriented Neck: Reports: Supple Lungs: Reports: Decreased Breath Sounds Cardiovascular: Reports: Regular Rhythm, Tachycardia GI/Abdominal Exam: Normal Bowel Sounds, No Distention (Male) Exam: Deferred Rectal (Males) Exam: Deferred Back Exam: Denies: Normal Inspection Extremities: No Pedal Edema. No: Normal Inspection Skin: Reports: Warm, Dry, Intact Neurological: Reports: Other (Intubated and sedated) Psy/Mental Status: Denies: Alert, Normal Affect
[2021-02-23] MEDS ORDERED: Propofol 200 MG/20 ML SDV IVPUSH ONE (19:30)
[2021-02-23] MEDS ORDERED: Midazolam 1 MG/ML 5 ML SDV IVPUSH ONE ×3 (19:37→19:58)
[2021-02-23] MEDS ORDERED: Midazolam 5 MG/ML 10 ML MDV ONE (19:49)
[2021-02-23] MEDS ORDERED: Sodium Chloride 0.9% 50 ML ONE (19:49)
--- NOTE | 2021-02-23 19:58 | PCM.SN.2 ---
- Free Text/Narrative Note: Rapid response note A rapid response was called on the patient. I arrived to find the patient seated on his gurney in a tripod position. The rapid response was called due to sudden worsening of breathing. The patient was admitted yesterday for COPD exacerbation, being treated with prednisone 60 mg daily. On auscultation of the patient's lungs, he had significantly diminished breath sounds with a prolonged expiratory phase. Overall poor air movement. An oxygen saturation read only 53% = undetermined oxygen saturation. A nonrebreather was placed, while the patient received a DuoNeb. An ABG was drawn, revealing a severe [id number] respiratory acidosis with hypoxemia, however, the blood gas was most likely venous. A repeat blood gas demonstrated an acute respiratory acidosis with hypoxemia. A D-dimer and troponin were drawn, which have not yet resulted. The patient was placed on BiPAP 10/4, with tidal volumes ranging from 600 ml to 800 ml, and the patient reported that his breathing felt better. About that time Dr. Martinez arrived, and we reviewed the blood gas results. The decision was made to intubate the patient. The patient was sedated with 100 mg IV propofol, to adequate anesthesia. I intubated the patient with an 8.0 ETT to 24 cm at the incisors. The tube was visualized passing through the vocal cords. Bilateral chest rise noted. Breath sounds heard in bilateral axillae. Positive CO2 colorimetric change. Bagging the patient through the ET tube was difficult, requiring slow inhalation. Initial vent setting therefore A/C 8/.400/5/1.0. Shortly after intubation the patient was given 50 mg of IV propofol, due to some agitation. 4 mg IV midazolam ordered, to be followed by a midazolam drip at 4 mg/h, in addition to a propofol drip at 75 mcg/kg/min. An NG tube was placed. A post-intubation portable chest x-ray demonstrates a cardiac silhouette within normal limits. No pulmonary vascular congestion. No pleural effusions. No focal infiltrate. No pneumothorax. Hyperinflation with bilateral diaphragmatic flattening, consistent with COPD. The tip of the ETT appears to be approximately 3 cm above the bishnu. The NG tube is in the stomach via the esophagus. Dr. Martinez has arranged for the patient to be transferred to an outside facility via flight. He will be given continuous albuterol.
[2021-02-23] MEDS ORDERED: Sodium Chloride 0.9% 1,000 ML ONE (20:06)
--- NOTE | 2021-02-23 20:55 | CR ---
Chest: Supine view of the chest was obtained. Comparison: Prior chest x-ray of 02/22/21. Endotracheal tube is seen. Tip lies at the level of the mid clavicles in satisfactory position. Nasogastric tube is seen which courses down the right side of the mediastinum most likely within a right lower lobe bronchus. Heart size and mediastinum are stable. Study is overpenetrated and no evaluation of the lungs can be obtained. No gross bony abnormality is seen. Impression: 1. Satisfactory position of endotracheal tube. 2. Nasogastric tube is abnormally positioned and most likely is within the right lower lobe bronchus. Diagnostic code #3
[2021-02-23 21:56] VITALS: BP 98/72
== END 2021-02-23 20:32 | DRG 133 ==
LOC: JD.ED 01:15 → JD.MS 06:53
PROVIDERS: ADMIT Internal Medicine; ATTEND Internal Medicine
PROC: 0D9670Z Drainage of Stomach with Drainage Device, Via Natural or Artificial Opening (ICD-10-PCS; principal; 2021-02-22)
PROC: 0BH17EZ Insertion of Endotracheal Airway into Trachea, Via Natural or Artificial Opening (ICD-10-PCS; 2021-02-23)
PROC: 5A1935Z Respiratory Ventilation, Less than 24 Consecutive Hours (ICD-10-PCS; 2021-02-23)
DX: J96.21 Acute and chronic respiratory failure with hypoxia (principal); J44.1 Chronic obstructive pulmonary disease with (acute) exacerbation; F17.210 Nicotine dependence, cigarettes, uncomplicated; I10 Essential (primary) hypertension; H91.90 Unspecified hearing loss, unspecified ear; H54.7 Unspecified visual loss; M19.90 Unspecified osteoarthritis, unspecified site; G89.29 Other chronic pain; M54.9 Dorsalgia, unspecified; M17.0 Bilateral primary osteoarthritis of knee; D75.1 Secondary polycythemia; E87.6 Hypokalemia; Z79.899 Other long term (current) drug therapy; Z98.890 Other specified postprocedural states; Z79.52 Long term (current) use of systemic steroids; Z20.822 Contact with and (suspected) exposure to COVID-19
CPT/HCPCS: 36415; 36600; 71045; 71045-26; 80053; 82803; 83735; 83880; 84484; 85025; 85379; 86140; 87070; 87205; 94002; 94640; 94660; 94667; 94668; 94762; 96374; 97110-GP; 97162-GP; 99222; 99239; 99284; 99285-25; A9270-GY; J1650; J2060; J2250; J2704; J2920; J2930; J3480; J7030; J7620-GY; U0002

== ENCOUNTER 2021-11-09 07:03 | Emergency (ER) | payer BC, OTHER ==
[2021-11-09] MEDS ORDERED: Sodium Chloride 0.9% 10 ML Syringe FLUSH PRN (07:38)
[2021-11-09] MEDS ORDERED: methylPREDNISolone Sodium Succinate 125 MG/2 ML SDV IVPUSH ONE (07:39)
[2021-11-09] MEDS ORDERED: Albuterol/Ipratropium 3.0-0.5 MG/3 ML Neb Soln NEB ONE ×2 (07:39→09:17)
[2021-11-09] MEDS ORDERED: FLU Vacc QS2021-22 36MOS UP/PF 60 MCG/0.5 ML Syringe IM ONE (07:45)
[2021-11-09 09:56] VITALS: BP 148/95; PULSE 92
== END 2021-11-09 09:55 | disposition home or self-care (01) ==
LOC: JD.ED 07:03
DX: J44.1 Chronic obstructive pulmonary disease with (acute) exacerbation (principal); I10 Essential (primary) hypertension; Z72.0 Tobacco use
CPT/HCPCS: 36415; 71045; 80053; 85025; 90471; 90686; 94640; 96374; 99285; J2930; 99284; G0008; J7620-GY

== ENCOUNTER 2022-02-03 13:28 | Emergency (ER) | payer OTHER ==
[2022-02-03 13:36] VITALS: BP 160/108
[2022-02-03] MEDS ORDERED: Sodium Chloride 0.9% 10 ML Syringe FLUSH PRN (13:56)
[2022-02-03] MEDS ORDERED: Pantoprazole 40 MG Vial IVPUSH ONE (13:56)
[2022-02-03] MEDS ORDERED: Famotidine 20 MG/2 ML SDV IVPUSH ONE (13:56)
[2022-02-03] MEDS ORDERED: Sodium Chloride 0.9% 1,000 ML IV STA (13:56)
[2022-02-03] MEDS ORDERED: methylPREDNISolone Sodium Succinate 125 MG/2 ML SDV IVPUSH ONE (13:57)
[2022-02-03] MEDS ORDERED: Albuterol/Ipratropium 3.0-0.5 MG/3 ML Neb Soln NEB ONE ×2 (13:57→15:52)
[2022-02-03] MEDS ORDERED: Sucralfate 1 GM Tab PO ONE (14:07)
[2022-02-03 14:26] VITALS: PULSE 91
[2022-02-03 14:38] LABS: ESTIMATED GFR > 60 mL/min (>60)
== END 2022-02-03 16:36 | disposition home or self-care (01) ==
LOC: JD.ED 13:28
DX: J44.1 Chronic obstructive pulmonary disease with (acute) exacerbation (principal); K21.9 Gastro-esophageal reflux disease without esophagitis; I10 Essential (primary) hypertension; M19.90 Unspecified osteoarthritis, unspecified site; F17.210 Nicotine dependence, cigarettes, uncomplicated; Z86.16 Personal history of COVID-19; Z79.899 Other long term (current) drug therapy
CPT/HCPCS: 36415; 71045; 80053; 84484; 85025; 86140; 93005; 94640; 96374; 96375; 99285; A9270; C9113; J2930; J3490; J7030; 93010; 99284; J7620-GY

== ENCOUNTER 2022-03-10 18:30 | Emergency (ER) | payer OTHER ==
[2022-03-10 18:51] VITALS: BP 112/78; PULSE 113
[2022-03-10] MEDS ORDERED: Albuterol/Ipratropium 3.0-0.5 MG/3 ML Neb Soln NEB ONE ×3 (19:03→20:47)
[2022-03-10] MEDS ORDERED: methylPREDNISolone Sodium Succinate 125 MG/2 ML SDV IVPUSH ONE (19:03)
== END 2022-03-10 21:25 | disposition home or self-care (01) ==
LOC: JD.ED 18:30
DX: J44.1 Chronic obstructive pulmonary disease with (acute) exacerbation (principal); I10 Essential (primary) hypertension; F17.210 Nicotine dependence, cigarettes, uncomplicated; Z79.899 Other long term (current) drug therapy
CPT/HCPCS: 36415; 71045; 80053; 82803; 85025; 85610; 93005; 94640; 96374; 99285; J2930; J7620-GY

== ENCOUNTER 2022-07-16 09:13 | Emergency (ER) | payer OTHER ==
[2022-07-16] MEDS ORDERED: Albuterol/Ipratropium 3.0-0.5 MG/3 ML Neb Soln NEB ONE (11:08)
[2022-07-16] MEDS ORDERED: methylPREDNISolone Sodium Succinate 125 MG/2 ML SDV IVPUSH ONE (11:08)
[2022-07-16 13:17] VITALS: BP 120/72; PULSE 85
== END 2022-07-16 13:15 | disposition home or self-care (01) ==
LOC: JD.ED 09:13
DX: J44.1 Chronic obstructive pulmonary disease with (acute) exacerbation (principal); I10 Essential (primary) hypertension; M19.90 Unspecified osteoarthritis, unspecified site; F17.210 Nicotine dependence, cigarettes, uncomplicated; Z23 Encounter for immunization; Z79.899 Other long term (current) drug therapy
CPT/HCPCS: 36415; 71045; 80053; 83735; 83880; 84484; 85025; 90471; 93005; 94640; 96374; 99285; J2930; G0008; J7620-GY

== ENCOUNTER 2022-08-28 19:15 | Emergency (ER) | payer OTHER ==
[2022-08-28 19:34] VITALS: BP 117/94; PULSE 118
[2022-08-28] MEDS ORDERED: Albuterol/Ipratropium 3.0-0.5 MG/3 ML Neb Soln NEB ONE ×3 (19:43→22:00)
[2022-08-28] MEDS ORDERED: Sodium Chloride 0.9% 10 ML Syringe FLUSH PRN (19:44)
[2022-08-28] MEDS ORDERED: methylPREDNISolone Sodium Succinate 125 MG/2 ML SDV IVPUSH ONE (19:44)
[2022-08-28 20:45] LABS: ESTIMATED GFR 104 mL/min (>60)
[2022-08-28 21:04] LABS: CORONAVIRUS COVID-19 NAA NEGATIVE (NEGATIVE)
[2022-08-28] MEDS ORDERED: Azithromycin 500 MG in Sodium Chloride 0.9% 250 ML IV ONE (21:31)
== END 2022-08-28 23:06 | disposition home or self-care (01) ==
LOC: JD.ED 19:15
DX: J44.1 Chronic obstructive pulmonary disease with (acute) exacerbation (principal); I10 Essential (primary) hypertension; F17.210 Nicotine dependence, cigarettes, uncomplicated; Z79.899 Other long term (current) drug therapy; Z86.16 Personal history of COVID-19; Z20.822 Contact with and (suspected) exposure to COVID-19
CPT/HCPCS: 0240U; 36415; 71045; 80053; 83735; 83880; 85025; 86140; 93005; 94640; 96365; 96375; 99285; J0456; J2930; J3490; J7050; J7620-GY